=== PATIENT | female | born 1975 | race Caucasian/White ===

== ENCOUNTER 2023-07-11 13:47 | Outpatient (REF) | payer OTHER, SELFPAY ==
[2023-07-16 10:11] LABS: Age Gdln ACOG Testing Note (.); HPV Aptima Negative (Negative); IGP, Aptima HPV, rfx 16/18,45 Note (.)
== END 2023-07-12 13:48 | disposition home or self-care (01) ==
LOC: LAB 13:47
PROVIDERS: PCP Obstetrics & Gynecology; Visit Provider Obstetrics & Gynecology
DX: Z01.419 Encounter for gynecological examination (general) (routine) without abnormal findings (principal)
CPT/HCPCS: 87624; G0145

== ENCOUNTER 2024-07-18 18:55 | Outpatient (REF) | payer OTHER, SELFPAY | END 2024-07-18 18:56 | disposition home or self-care (01) | LOC: LAB 18:55 | PROVIDERS: PCP Obstetrics & Gynecology; Visit Provider Obstetrics & Gynecology | DX: Z01.419 Encounter for gynecological examination (general) (routine) without abnormal findings (principal) | CPT/HCPCS: 87624; 88175 ==

== ENCOUNTER 2025-07-24 20:37 | Outpatient (REF) | payer OTHER, SELFPAY ==
--- OUTSIDE RECORDS SUMMARY | 2025-07-24 15:00 | XMS_ITS | Encounter Summary ---
Author Organization [facility] Address [address] [facility] [place] [address] Care Team Providers Care Protective Services Social Worker Name Role Phone Chelle Walker MD Primary Care Provider [phone] Reason for Visit * ReasonCommentsWell Women Visit Encounter Details DateTypeDepartmentCare Team (Latest Contact Info)Zwsaexstdfi55/19/2025 3:00 PM ESTOffice Visit [facility] [address] [place] [address] Clay Olguin DO [address] [place] [address] Well woman exam with routine gynecological exam; Breast cancer screening by mammogram Social History Tobacco UseTypesPacks/DayYears UsedDateSmoking Tobacco: NeverSmokeless Tobacco: NeverAlcohol UseStandard Drinks/WeekCommentsNot Currently0 (1 standard drink = 0.6 oz pure alcohol)caffeine 1-2 cups/day; [id number] Health LiteracyAnswerDate RecordedHow often do you need [...] times a week02/21/2025How often do you attend confucianism or yazidism services?Patient okrapafb85/19/2025Do you belong to any clubs or organizations such as confucianism groups, unions, fraThe Key Revolution or athletic groups, or school groups?No02/21/2025How often do you attend meetings of the clubs or organizations you belong to?Never02/21/2025re you , , , , never , or living with a partner?Living with iftjigi7602/21/2025UDIT-CAnswerDate RecordedQ1: How often do you have a drink containing alcohol?Monthly or less02/21/2025Q2: How many drinks containing alcohol do you have on a typical day when you are drinking?3 or 4 02/21/2025Q3: How often do you have six or more drinks on one occasion?Less than jbszebm8402/21/2025Overall Financial Resource Strain (CARDIA)AnswerDate Recorded How hard is it for you to pay for the very basics like food, housing, medical care, and heating?Not hard at all02/21/2025PHQ-2AnswerDate RecordedPatient Health Questionnaire-2 Qdndl752Fin[facility] [place] of Occupational Health - Occupational Stress QuestionnaireAnswerDate RecordedDo you feel stress - tense, restless, nervous, or anxious, or unable to sleep at night because your mind is troubled all the time - these days?To some ndvgtf3402/21/2025Exercise Vital SignAnswerDate RecordedOn average, how many days [...] were you homeless or living in a half-way (including now)?No02/21/2025CommentsNoSex and Gender InformationValueDate RecordedSex Assigned at TlsxyEuljqd61/18/2023 10:08 AM EDT Legal SwmFflnmz91/15/2023 7:26 PM EDTGender DvgxuqdwXalfob82/18/2023 10:08 AM EDTSexual OrientationChoose not to olorhhyj39/18/2023 10:08 AM EDTdocumented as of this encounter Last Filed Vital Signs Vital SignReadingTime TakenCommentsBlood Arzpyuiy038/7007/24/2025 3:16 PM EST Pulse--Temperature--Respiratory Rate--Oxygen Saturation--Inhaled Oxygen Concentration--Laklpi41.7 kg (186 lb 12.8 oz)07/24/2025 3:16 PM ESTHeight--Body Mass Index30.15005/29/2025 3:03 PM EDTdocumented in this encounter Plan of Treatment DateTypeDepartmentCare Team (Latest Contact Info)Bhiermlczvi52/25/2025 3:40 PM ESTOffice Visit [facility] [place] [facility] [address] [place] [address] Candi Kebede NP [address] [place] [address] 02/19/2026 10:00 AM EDTOffice Visit [facility] [address] [place] [address] Milly Dias PA [address] [place] [address] NameTypePriorityAssociated DiagnosesOrder ScheduleBilateral screening mammogram [...] Chelle Walker MD [address] [place] [address] PCP - GeneralFamily Medicine02/22/25documented as of this encounter
--- OUTSIDE RECORDS SUMMARY | 2025-07-24 20:41 | XMS_ITS | CCD ---
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 Role Phone Ariel Meeks Primary Care Physician [phone] SOFI, DR FERRARA Admitting Unavailable SOFI, DR FERRARA Attending Unavailable SOFI, DR FERRARA Primary Care Unavailable SOFI, DR FERRARA Admitting Unavailable SOFI, DR FERRARA Attending Unavailable SOFI, DR FERRARA Primary Care Unavailable SOFI, DR FERRARA Consulting Un[facility] Roach Consulting Unavailable SOFI, DR FERRARA Admitting Unavailable SOFI, DR FERRARA Attending Unavailable SOFI, DR FRERARA Primary Care Unavailable SOFI, DR FERRARA Consulting Unavailable TOKIO, DR JOHNY Thurman Consulting Unavailable Unavailable Primary Care Provider Ariel Ding MD Primary Care Provider Self, Referral Attending Provider Unavailable Clay Olguin DO Referring Provider Self, Referral Admitting Unavailable Self, Referral Attending Unavailable Ariel Meeks Primary Care Unavailable Clay Olguin Referring Unavailable [phone] -Kiran Cordero Attending Unavaila ble [phone] Elias Servin Attending Unavail able RAJ Quintanilla Attending UnavailAriel Smliey Referring Unavailable Clifton TURNER Attending Unavailable NILLClifton R Referring Unavailable NILLClitfon Attending Unavailable Clifton TURNER R Admitting Unavailable Chelle Walker MD Primary Care Provider JAMEE OROZCO Attending Unavailable MARLEEN JONES Attending Unavailable CLAY OLGUIN Attending Unavailable MARLEEN JONES Attending Unavailable MARLEEN JONES Attending Unavailable MARLEEN JONES Attending Unavailable Allergies Allergy ClassificationReported Allergen(s)Allergy TypeDate of OnsetReaction(s) Facility (1 source)No Known Medication Allergies; Translations: [No Known Medication Allergies]Propensity to adverse reactions (disorder)[facility] Repository Medications Current Medications MedicationDrug Class(es)DatesSig (Normalized)Sig (Original)Albuterol Sulfate 90 mcg/actuation HFA aerosol inhaler (1 source)Start: 18-42-0351Mrdltshzi Sulfate 90 mcg/actuation HFA aerosol inhaler Active 2 INH INHALATION EVERY 4-6 HOURS as needed for shortness of breath or wheezing 6.7 7 September 01, 2024 12:00amduloxetine (12 sources)Serotonin and Norepinephrine Reuptake InhibitorStart: 05-18-2023 duloxetine Oral, Refills(s) 0 Start Date: 05/18/23 Status: OrderedStart: 05-18-2023 End: 60-09-4750EBPUTMBQOV HCL PO Take by mouth. 05/18/2023 02/19/2025 DiscontinuedStart: 03-69-9391IKVVGDAWXE HCL PO Take by mouth. 05/18/2023 Active Start: 27-63-5806fvaq 1 capsule by mouth once dailyDuloxetine 60 mg capsule,delayed release(DR/EC) Active 60 MG PO Daily December 02, 2021 11:00pm hydrOXYzine hydrochloride 25 mg oral tablet (5 sources)AntihistamineStart: 05-29-2025 End: 51-85-1822evloXEEcjhl HCl (Atarax) 25 MG tablet Indications: Anxiety , Sweating profusely Take 1 tablet (25 mg) by mouth as needed at bedtime for anxiety 90 tablet 06/25/2025 09/23/2025 ActiveStart: 12-03-2021 End: 16-16-5953phcv 1 capsule by mouth four times daily as needed for anxiety Hydroxyzine Pamoate 25 mg capsule Discontinued 25 MG PO Four times daily as needed for Anxiety December 02, 2021 11:00pm September 01, 2024 11:11am hyoscyamine sulfate 0.125 mg oral tablet (1 source)Start: 62-73-8569zlml 1 tablet by mouth every four hours as needed for painLevsin 0.125 mg SL Tab 0.125 mg = 1 tab(s), Oral, q4hr, PRN abdominal pain, Refills(s) 0 Start Date: 12/03/24 Status: Ordered Repeat number: 1 methylPREDNISolone 4 mg oral tablet (1 source)CorticosteroidStart: 82-77-9651sqlb 1 tablet by mouth once Methylprednisolone (Medrol (Bassam)) 4 mg tablets,dose pack Active 0 PO per package directions September 01, 2024 12:00am PO PER PKG DIRMultivitamin preparation (1 source)Start: 47-94-5882cvby 1 tablet by mouth once dailymultivitamin 1 tab(s), Oral, Daily, Refill(s) 0, Prophylaxis Start Date: 12/24/24 Status: Ordered Repeat number: 1mupirocin 0.02 mg/mg topical ointment (1 source)RNA Synthetase Inhibitor AntibacterialStart: 05-18-2023 End: 33-28-1325uhcwrnzxb Top 2% Oint 1 ernestina, Topical, TID for 7 day(s), 22 gm, Refill(s) 0, [facility]/pharmacy #[id number], 167, cm, 05/18/23 15:22:00 EDT, Height/Length Dosing, 93.9, kg, 05/18/23 15:22:00 EDT, Weight Dosing Start Date: 05/18/23 Stop Date: 05/25/23 Status: Orderednaproxen 500 mg delayed release oral tablet (1 source)Nonsteroidal Anti-inflammatory DrugStart: 06-25-2024 End: 59-27-7262vvvc 1 tablet by mouth twice daily at mealtimenaproxen 500 mg oral enteric coated tablet 500 mg = 1 tab(s), Oral, BID, with food, X 10 day(s), # 20 tab(s), Refills(s) 0, Pharmacy: [facility]/pharmacy #[id number], 167, cm, 06/25/24 9:39:00 EDT, Height/Length Dosing, 93, kg, 06/25/24 9:39:00 EDT, Weight Dosing Start Date: 06/25/24 Stop Date: 07/05/24 Status:Orderedpantoprazole 40 mg delayed release oral tablet (1 source)Proton Pump InhibitorStart: 64-06-9696nwqe 1 tablet by mouth once dailyProtonix 40 mg Tab-DR 40 mg = 1 tab(s), Oral, Daily, Refills(s) 0, Control of stomach acid Start Date: 12/03/24 Status: Ordered Repeat number: 1Tirzepatide- Weight Management 5 MG/0.5ML solution auto-injector (6 sources)inject 5 mg by subcutaneous injection every weekTirzepatide-Weight Management 5 MG/0.5ML solution auto-injector Inject 5 mg under the skin 1 (one) time per week Active Completed/Discontinued Medications MedicationDrug Class(es)DatesSig (Normalized)Sig (Original)minocycline 100 mg oral capsule (3 sources)Tetracycline-class DrugStart: 08-03-2023 End: 40-71-9867upeg 1 capsule by mouth twice dailyminocycline 100 MG capsule Indications: Postoperative infection, unspecified type, initial encounter Take 1 capsule, by mouth, bid x 7 days 14 capsule 08/03/2023 07/18/2024 Discontinued (Other)Bm-Ob-Yppf-Fa-Ca Carb-Vit K (Women's Multivitamin) 18 mg iron-400 mcg-500 mg Tablet (1 source)Start: 12-03-2021 End: 60-47-6100Ah-Xh-Xanw-We-Ca Carb-Vit K (Women's Multivitamin) 18 mg iron-400 mcg-500 mg Tablet Discontinued 2 TAB PO Daily December 02, 2021 11:00pm September 01, 2024 11:11amphentermine hydrochloride 37.5 mg oral tablet (7 sources)Sympathomimetic Amine AnorecticStart: 06-20-2023 End: 32-57-8948zbll 1 tablet by mouth once dailyAdipex-P 37.5 MG tablet Take 37.5 mg by mouth 1 (one) time each day at the same time. 06/20/2023 02/19/2025 DiscontinuedTirzepatide-Weight Management (Zepbound) 2.5 MG/0.5ML solution auto-injector (5 sources) End: 37-16-7757agofkb 2.5 mg by subcutaneous injection every weekTirzepatide- Weight Management (Zepbound) 2.5 MG/0.5ML solution auto-injector Inject 2.5 mg under the skin 1 (one) time per week compounded 04/29/2025 Discontinuedinject 2.5 mg by subcutaneous injection every weekTirzepatide-Weight Management (Zepbound) 2.5 MG/0.5ML solution auto-injector Inject 2.5 mg under the skin 1 (one) time per week compounded ActivetraMADol hydrochloride 50 mg oral tablet (1 source)Opioid AgonistStart: 12-17-2021 End: 49-26-8910chia 1 tablet by mouth every four hours as needed for pain Tramadol 50 mg Tablet Discontinued 50 MG PO Q4H as needed for Pain scale 1 - 4 20 7 December 16, 2021 11:00pm September 01, 2024 11:11am Problems Active Problems Problem ClassificationProblemDateDocumented DateEpisodic/ChronicAbdominal pain (6 sources)Abdominal pain; Translations: [Unspecified abdominal pain]08-17-2023 EpisodicComment on above:Problem List clean-up per request of Phys. EHR Cmte Anxiety disorders (9 sources)Anxiety; Translations: [Anxiety disorder, unspecified]03-26-2025 ChronicDigestive congenital anomalies (1 source)Congenital anomaly of intestinal tract; Translations: [Other specified congenital malformations of intestine]Onset: 98-14-2465JtywtlaDttishqtdf disorders (1 source)Gastroesophageal reflux qpeetcm04-82-0726JykvqiuFmeuzctflhygo symptoms and ill-defined conditions (2 sources)Increased frequency of urination; Translations: [Frequency of micturition]04-45-9541GskaqiugLdkwo valve disorders (3 sources)Heart murmur; Translations: [Cardiac murmur, unspecified]12-03-2024 EpisodicMood disorders (1 source)Depressive ecqoppxp66-60-0796BspwbbkMrsxw and unspecified benign neoplasm (2 sources)Melanocytic nevus of trunk; Translations: [Melanocytic nevi of trunk] 16-70-6229JsrpospwJfhsh and unspecified benign neoplasm (2 sources)Dermatofibroma of left upper limb; Translations: [Other benign neoplasm of skin of left upper limb,including shoulder]46-67-4602VyprlemfKrcjp and unspecified benign neoplasm (2 sources)Dermatofibroma of right lower limb; Translations: [Other benign neoplasm of skin of right lower limb, including hip]86-58-2072HuhnoedmInyfs connective tissue disease (4 sources)Iliotibial band friction syndrome of right knee; Translations: [Iliotibial band syndrome, right leg]Onset: 15-45-5614JcdxflheMuptp connective tissue disease (2 sources)H/O: osteoarthritis; Translations: [Personal history of other diseases of the musculoskeletal system and connective tissue]57-76-4922Xnvsflto Other disorders of stomach and duodenum (2 sources)Indigestion; Translations: [Functional dyspepsia]61-59-5810Xrgjwmgc Other gastrointestinal disorders (1 source)Altered bowel nxixdmdo42-57-4292KduybrgaAibzn gastrointestinal disorders (4 sources)Diarrhea; Translations: [Diarrhea, unspecified]13-24-8342Orwtnynt Other gastrointestinal disorders (2 sources)Burping; Translations: [Eructation]36-77-6732QicyhvnyCpieb non- epithelial cancer of skin (2 sources)History of squamous cell carcinoma of skin; Translations: [Personal history of other malignant neoplasm of skin]66-89-8556IfhiflbiTuyta nutritional; endocrine; and metabolic disorders (2 sources)Obese class I; Translations: [Body mass index (BMI) 33.0-33.9, adult] Onset: 71-98-9311BxwfahwFdrxk nutritional; endocrine; and metabolic disorders (5 sources)Obesity; Translations: [Obesity, unspecified]Onset: 29-94-5140Gncqtkc Other nutritional; endocrine; and metabolic disorders (12 sources)Body mass index 30+ - obesity; Translations: [Body mass index (BMI) 33.0-33.9, adult]47-25-5999VkhmjqzHqcho screening for suspected conditions (not mental disorders or infectious disease) (11 sources)Patient encounter status; Translations: [Encounter for screening mammogram for malignant neoplasm of breast]Onset: 417069-30-0718Uywweeoz Other skin disorders (1 source)Disorder of skin; Translations: [Disorder of the skin and subcutaneous tissue, unspecified]Onset: 88-26-1809AyffrlmaXqlcc skin disorders (2 sources)Lentiginosis; Translations: [Other melanin hyperpigmentation] 88-37-1949BzejjfvkPuvdl skin disorders (2 sources)Actinic keratosis; Translations: [Actinic keratosis]02-19-2025 EpisodicOther skin disorders (2 sources)Seborrheic keratosis; Translations: [Other seborrheic keratosis] 37-67-7935XffbezduVacga skin disorders (3 sources)Excessive sweating; Translations: [Generalized hyperhidrosis] 81-26-5418GnclabagMxcpieum codes; unclassified (2 sources)History of abdominal hysterectomy; Translations: [Acquired absence of both cervix and uterus]40-49-2634ZxriwvtlEbefdbcpjqw; intervertebral disc disorders; other back problems (2 sources)Sacroiliac disorder; Translations: [Sacrococcygeal disorders, not elsewhere classified]41-57-8799ZricljdlJwnje infection (2 sources)Respiratory syncytial virus infection; Translations: [Other specified viral diseases]59-55-6595Upikqxic Past or Other Problems Problem ClassificationProblemDateDocumented DateEpisodic/ChronicLymphadenitis (5 sources)Localized enlarged lymph nodes; Translations: [LOCALIZED ENLARGED LYMPH NODES]Onset: 85-22-4205CojkyeikFvrsfyx and fatigue (4 sources)Other fatigue; Translations: [OTHER FATIGUE]Onset: 89-97-3219Ljwrjdir Viral infection (1 source)Disease caused by 2019-nCoV; Translations: [COVID-19] Results Test NameValueInterpretationReference RangeFacilityUrinalysis macro (dipstick) panel (U)on 11-78-7953Hvfqomrsu, UANegativeNegative - 4(70) +++ mg/dLNOMS HealthcareBlood, UANegativeNegative - 50 Rubén/mcLNOMS HealthcareClarity, UAClear NOMS HealthcareColor, UAYellowNOMS HealthcareGlucose, UANegativeNegative - 2000(110) ++++ mg/dLNOMS HealthcareKetones, UANegativeNegative - 160(16) ++++ mg/dLNOMS HealthcareLeukocytes, UANegativeNegative - 500+++ Yolanda/mcLNOMS HealthcareNitrite, UANegativeNegative - PositiveNOMS HealthcarepH, UA65 - 9NOMS HealthcareProtein, UANegativeNegative - 2000(20) ++++ mg/dLNOMS HealthcareSpec Grav, UA1.011 - 1.03NOMS HealthcareUrobilinogen, UA0.20.2 - 12 mg/dLNOMS HealthcareNOMS HealthcareNo Panel Informationon 86-50-9976ESDL HealthcareMain OR Intraoperative Recordon 01-20-4223Wdiy OR Intraoperative RecordMain OR Intraoperative Record IntraOp Document Type FT Summary Primary Physician: Clifton TURNER MD Finalized Date/Time: 01/15/25 13:29:19 Pt. Name: LYLY TOLBERT /Sex: 1975 Female Med Rec #: [id number] Physician: Clifton TURNER MD Financial #: [id number] Pt. Type: O Room/Bed: / Admit/Disch: 01/14/25 07:59:25 - 01/14/25 23:59:59 Institution: Case Times FT Entry 1 Patient Times In Room 01/14/25 08:51:00 Out Room 01/14/25 09:10:00 Procedure Times Start 01/14/25 08:54:00 Stop 01/14/25 09:08:00 Anesthesia Times Start 01/14/25 08:51:00 Stop 01/14/25 09:10:00 Time at [facility] 01/14/25 09:00:00 Last Modified By: Yasemin REECE, Bree Jones 01/14/25 09:10:42 Case Attendance FT Entry 1 Entry 2 Entry 3 Case Attendee XENA ALICEA, Elvira Willoughby RISK PREVENTION ENGINEER, Joann Conn Role Performed Surgeon - Primary Scrub - Primary RISK PREVENTION ENGINEER Time In 01/14/25 08:51:00 01/14/25 08:51:00 01/14/25 08:51:00 Time Out 01/14/25 09:10:00 01/14/25 09:10:00 01/14/25 09:10:00 Procedure COLONOSCOPY(.) COLONOSCOPY(.) COLONOSCOPY(.) Comments Dr. Marte supervising case Last Modified By: Yasemin RN, Bree Hazel RN, Bree Hazel RN, Bree F 01/14/25 09:10:42 F 01/14/25 09:10:42 F 01/14/25 09:10:42 Entry 4 Case Attendee Bree Hazel RN Role Performed Hydroelectric Plant Technician - Primary Time In 01/14/25 08:51:00 Time Out 01/14/25 09:10:00 Procedure COLONOSCOPY(.) Comments Last Modified By: Bere Hazel RN 01/14/25 09:10:42 Perioperative Protocols FT Pre-Care Text: Implements protective measures prior to operative or invasive procedure, confirms identity before the operative or invasive procedure, verifies operative procedure, surgical site, and laterality Entry 1 Procedure(s) COLONOSCOPY(.) Patient Identity Birthday, ID Band Verified (select at Check, Patient least 2): Participation Consents / H and P Anesthesia Consent, Operative Site N/A Verified H&P, Surgery/Procedure Marking Verified Consent Surgical Site No Laterality Verified n/a Verified Procedure Verified Yes Correct Patient Yes Position Verified Availability Equipment, Medication Prep Dry n/a Verified (If Applicable) PreOp Antibiotic No Time Out Clifton TURNER MD, Given Participants Elvira Stearns Funni CRNA, Brandy J., Bree Hazel RN Time Out Complete 01/14/25 08:52:00 Outcomes Met? Yes Last Modified By: Bree Hazel RN 01/14/25 08:53:33 Post-Care Text: The patient is free from signs and symptoms of injury caused by extraneous objects Allergy Information FT Pre-Care Text: Verifies allergies Entry 1 Allergies Reviewed? Yes Allergies Reviewed Self/Patient With Outcomes Met? Yes Last Modified By: Bree Hazel RN 01/14/25 08:53:38 Post-Care Text: The patient received appropriate medication(s) safely administered during the perioperative period Surgical Procedures FT Entry 1 Procedure Description Procedure COLONOSCOPY Modifiers . Surgeon Description Colonoscopy Primary Procedure Yes Primary Surgeon Clifton TURNER MD Start 01/14/25 08:54:00 Stop 01/14/25 09:08:00 Anesthesia Type General Surgical Service General Wound Class 2 - Clean-Contaminated Last Modified By: Bree Hazel RN 01/14/25 09:09:23 General Case Data FT Pre-Care Text: Classifies surgical wound, implements aseptic technique, initiates traffic control Entry 1 Case Information OR ENDO 2 FT Case Level Level 2 Wound Class 2 - Clean-Contaminated Specialty General ASA Class 3 Preop Diagnosis Diarrhea Postop Same As Preop No Postop Diagnosis Normal colonoscopy Outcomes Met? Yes Last Modified By: Bree Hazel RN 01/14/25 09:09:21 Post-Care Text: The patient is free from signs and symptoms of infection Skin Assessment (Pre Procedure) FT Pre-Care Text: Implements protective measures to prevent skin/ tissue injury due to thermal or mechanical sources Evaluates for signs and symptoms of physical injury to skin and tissue Entry 1 Skin Integrity Intact, [place], Warm, & Skin Abnormality No Dry Outcomes Met? Yes Last Modified By: Bree Hazel RN 01/14/25 08:54:05 Post-Care Text: The patient is free from signs and symptoms of injury caused by extraneous objects Patient Positioning FT Pre-Care Text: Identifies physical alterations that require additional precautions for procedure-specific positioning, verifies presence of prosthetics or corrective devices, positions the patient, evaluates the patient for signs and symptoms of injury as a result of positioning Entry 1 Procedure COLONOSCOPY(.) Body Position Lateral, right side up Feet Uncrossed? Yes Left Arm Position Resting at Side Right Arm Position Resting at Side Left Leg Position Extended Right Leg Position Extended Positioning Device Safety Strap, Pillow Under Head Large Press Points Checked Yes By Bree Hazel RN (more content not included)...[facility] 04-77-4209HnvnbdcmtSnyxbcrpq From: Francine Knight LPN To: N - Clinical; Sent: 01/15/2025 08:41:07 EDT Show up: 12/15/2034 07:00:00 EDT Subject: colonoscopy recall Due Date/Time: 01/14/2035 07:00:00 EDT Reminder/Recall Patient due for screening colonoscopy 01/14/2035.[facility] CenterDischarge Instructionson 63-06-3703Wiyjbieoy InstructionsDischarge Instructions LYLY TOLBERT :1975 Visit Date:01/14/2025 Inpatient Discharge Instructions Your Care Team Admitting Physician - Clifton TURNER MD Referring Physician - XENA ALICEA, Clifton Roach Reason for Your Visit DIARRHEA Your Diagnosis Redundant colon This Is Your Medications List hyoscyamine (Levsin 0.125 mg SL Tab) multivitamin pantoprazole (Protonix 40 mg Tab-DR) Procedure History Colonoscopy (01/14/2025), Total hysterectomy via vaginal approach (12/17/2021), Meniscal repair. What to do next Instructions From Your Doctor Event Name Event Result Discharge Activity Resume normal activities in 24 hours, Arrange for a responsible adult supervision for 24 hours Discharge Restrictions No driving for 24 hrs, Do not operate machinery or tools, Do not make important decisions for 24 hours, Do not drink alcoholic beverages for 24 hours Discharge Diet(s) Other: high fiber diet Call Your Doctor For Persistent or heavy bleeding, Temperature above 101.5 degrees, Redness, swelling, or pus at operative site, Severe pain at the operative site, Persistent vomiting Discharge Instructions Discharge Instructions New Follow Up Appointments after Discharge Follow Up with Clifton TURNER When: Only if needed Where: [facility] [employer], [address] [employer] [address] [place] [phone] Spotted (1) Medications What How Much When Instructions Next Dose Unchanged hyoscyamine (Levsin 0.125 mg SL Tab) 1 Tablets By Mouth Every 4 hours as needed for abdominal pain Unchanged multivitamin 1 Tablets By Mouth Every day Unchanged pantoprazole (Protonix 40 mg Tab-DR) 1 Tablets By Mouth Every day Test Results No qualifying data available. Allergies No Known Allergies No Known Medication Allergies Problems Ongoing - Any problem that you are currently receiving treatment for. Abdominal pain, RLQ BMI 34.0-34.9,adult Cardiac murmur Change in bowel habits Depression Gastroesophageal reflux disease Obesity Education Materials Colonoscopy Care After Surgery Please read the instructions outlined below and refer to this sheet in the next few weeks. These discharge instructions provide you with general information on caring for yourself [facility] Your doctor may also give you specific instructions. While your treatment has been planned according to the most current medical practices available, unavoidable complications occasionally occur. If you have any problems or questions after discharge, please call your doctor. ACTIVITY You may resume your regular activity, but move at a slower pace for the next 24 hours. Take frequent rest periods for the next 24 hours. Walking will help get rid of the air and reduce the bloated feeling in your abdomen (belly). No driving for 24 hours (because of the anesthesia (medicine) used during the test). You may shower. Do not sign any important legal documents or operate any machinery for 24 hours (because of the anesthesia used during the test). NUTRITION Drink plenty of fluids. You may resume your normal diet as instructed by your doctor. Begin with a light meal and progress to your normal diet. Heavy or fried foods are harder to digestand may make you feel nauseated (sick to your stomach). Avoid alcoholic beverages for 24 hours or as instructed. MEDICATIONS You may resume your normal medications unless your doctor tells you otherwise. WHAT YOU CAN EXPECT TODAY Some feelings of bloating in the abdomen. Passage of more gas than usual. Spotting of blood in your stool or on the toilet paper. FOLLOW-UP Your doctor will discuss the results of your test with you. SEEK IMMEDIATE MEDICAL ATTENTION IF: There is more than a spotting of blood in your stool. There is abdominal distention (your abdomen is swollen). There is vomiting. You have a temperature over 101.5 F. There is abdominal pain or discomfort that is severe or gets worse throughout the day. Common Emergency Awareness Tips IS IT A STROKE? Act FAST and Check for these signs: FACE Does the face look uneven? ARM Does one arm drift down? SPEECH Does their speech sound strange? TIME Call at any sign of stroke Heart Attack Signs Chest discomfort: Most heart attacks involve discomfort in the center of the chest and lasts more than a few minutes, or goes away and comes back. It can feel like uncomfortable pressure, squeezing, fullness or pain. Discomfort in upper body: Symptoms can include pain or discomfort in one or both arms, back, neck, jaw or stomach. Shortness of breath: With or without discomfort. Other signs: Breaking out in a cold sweat, nausea, or lightheaded. Remember, MINUTES DO MATTER. If you experience any of these heart attack warning signs, call to get immediate medical attention! Patient Survey You may receive a survey in the mail asking you (more content not included)... [facility] CenterComment on above:Result Comment: Electronically Signed By: Michael REECE, Stephenie Macdonald\.tod\Date and Time Signed: 01/14/25 09:16 EDT Discharge InstructionsDischarge Instructions LYLY TOLBERT :1975 Visit Date:01/14/2025 Inpatient Discharge Instructions Your Care Team Admitting Physician - XENA ALICEA, Clifton Roach Referring Physician - Clifton TURNER MD Reason for Your Visit DIARRHEA Your Diagnosis Redundant colon This Is Your Medications List hyoscyamine (Levsin 0.125 mg SL Tab) multivitamin pantoprazole (Protonix 40 mg Tab-DR) Procedure History Colonoscopy (01/14/2025), Total hysterectomy via vaginal approach (12/17/2021), Meniscal repair. What to do next Instructions From Your Doctor Event Name Event Result Discharge Activity Resume normal activities in 24 hours, Arrange for a responsible adult supervision for 24 hours Discharge Restrictions No driving for 24 hrs, Do not operate machinery or tools, Do not make important decisions for 24 hours, Do not drink alcoholic beverages for 24 hours Discharge Diet(s) Other: high fiber diet Call Your Doctor For Persistent or heavy bleeding, Temperature above 101.5 degrees, Redness, swelling, or pus at operative site, Severe pain at the operative site, Persistent vomiting Discharge Instructions Discharge Instructions New Follow Up Appointments after Discharge Follow Up with Clifton TURNER When: Only if needed Where: [address] [place] [address], [facility] [address] [address] [facility] (1) Medications What How Much When Instructions Next Dose Unchanged hyoscyamine (Levsin 0.125 mg SL Tab) 1 Tablets By Mouth Every 4 hours as needed for abdominal pain Unchanged multivitamin 1 Tablets By Mouth Every day Unchanged pantoprazole (Protonix 40 mg Tab-DR) 1 Tablets By Mouth Every day Test Results No qualifying data available. Allergies No Known Allergies No Known Medication Allergies Problems Ongoing - Any problem that you are currently receiving treatment for. Abdominal pain, RLQ BMI 34.0-34.9,adult Cardiac murmur Change in bowel habits Depression Gastroesophageal reflux disease Obesity Education Materials Colonoscopy Care After Surgery Please read the instructions outlined below and refer to this sheet in the next few weeks. These discharge instructions provide you with general information on caring [facility] Your doctor may also give you specific instructions. While your treatment has been planned according to the most current medical practices available, unavoidable complications occasionally occur. If you have any problems or questions after discharge, please call your doctor. ACTIVITY You may resume your regular activity, but move at a slower pace for the next 24 hours. Take frequent rest periods for the next 24 hours. Walking will help get rid of the air and reduce the bloated feeling in your abdomen (belly). No driving for 24 hours (because of the anesthesia (medicine) used during the test). You may shower. Do not sign any important legal documents or operate any machinery for 24 hours (because of the anesthesia used during the test). NUTRITION Drink plenty of fluids. You may resume your normal diet as instructed by your doctor. Begin with a light meal and progress to your normal diet. Heavy or fried foods are harder to digestand may make you feel nauseated (sick to your stomach). Avoid alcoholic beverages for 24 hours or as instructed. MEDICATIONS You may resume your normal medications unless your doctor tells you otherwise. WHAT YOU CAN EXPECT TODAY Some feelings of bloating in the abdomen. Passage of more gas than usual. Spotting of blood in your stool or on the toilet paper. FOLLOW-UP Your doctor will discuss the results of your test with you. SEEK IMMEDIATE MEDICAL ATTENTION IF: There is more than a spotting of blood in your stool. There is abdominal distention (your abdomen is swollen). There is vomiting. You have a temperature over 101.5 F. There is abdominal pain or discomfort that is severe or gets worse throughout the day. Common Emergency Awareness Tips IS IT A STROKE? Act FAST and Check for these signs: FACE Does the face look uneven? ARM Does one arm drift down? SPEECH Does their speech sound strange? TIME Call at any sign of stroke Heart Attack Signs Chest discomfort: Most heart attacks involve discomfort in the center of the chest and lasts more than a few minutes, or goes away and comes back. It can feel like uncomfortable pressure, squeezing, fullness or pain. Discomfort in upper body: Symptoms can include pain or discomfort in one or both arms, back, neck, jaw or stomach. Shortness of breath: With or without discomfort. Other signs: Breaking out in a cold sweat, nausea, or lightheaded. Remember, MINUTES DO MATTER. If you experience any of these heart attack warning signs, call to get immediate medical attention! Patient Survey You may receive a survey in the mail asking you (more content not included)... [facility] CenterComment on above:Result Comment: Electronically Signed By: Michael REECE, Stephenie Macdonald\.tod\Date and Time Signed: 01/14/25 09:16 EDT Inpatient Patient Summaryon [id number] Patient SummaryInpatient Patient Summary [address] [address] [facility] Clinical Discharge Instructions PERSON INFORMATION Name: LYLY TOLBERT PHYSICIANS Admitting Physician: Clifton TURNER MD Attending Physician: Clifton TURNER MD PCP: Ariel Meeks MD Discharge Diagnosis: Redundant colon Comment: PATIENT EDUCATION INFORMATION Instructions: Medication Leaflets: Follow up: With: Address: When: [address] [facility], [address], [place] [phone] Business (1) , only if needed MEDICATION LIST Medications to Continue with No Changes Other Medications hyoscyamine (Levsin 0.125 mg SL Tab) 1 Tablets By Mouth every 4 hours as needed abdominal pain. multivitamin 1 Tablets By Mouth every day. pantoprazole (Protonix 40 mg Tab-DR) 1 Tablets By Mouth every day. Comment:[facility] OR PACU II Recordon [id number] OR PACU II RecordMain OR PACU II Record PACU Phase II Document Type FT Summary Primary Physician: Clifton TURNER MD Finalized Date/Time: 01/14/25 10:37:18 Pt. Name: LYLY TOLBERT Se/Sex: 1975 Female Med Rec #: [id number] Physician: Clifton TURNER MD Financial #: [id number] Pt. Type: O Room/Bed: / Admit/Disch: 01/14/25 07:59:25 - Institution: Case Times PACU II FT Pre-Care Text: Identifies barriers to communication and implements measures to provide psychological support and determines knowledge level Develops individualized plan of care, and ensures continuity of care Maintains patient's dignity and privacy, and maintains patient confidentiality Identifies and reports philosophical, cultural, and spiritual beliefs and values Identifies individual values and wishes concerning care administers prescribed antibiotic therapy and immunizing agents as ordered, Evaluates postoperative tissue perfusion Implements thermoregulation measures, and monitors body temperature Evaluates postoperative respiratory statusEvaluates postoperative cardiac status Evaluates postoperative neurological status Assesses pain control, collaborated in initiating patient-controlled analgesia and implements alternative methods of pain control Verifies allergies, administers prescribed medications and solutions, evaluates response to medications Entry 1 In PACU II 01/14/25 09:12:00 Discharge from PACU 01/14/25 09:40:00 II Outcomes Met? Yes Last Modified By: Stephenie Rodriguez RN 01/14/25 10:37:17 Post-Care Text: The patient demonstrates knowledge of the expected response to the operative or invasive procedure The patient's care is consistent with the individualized perioperative plan of care The patient's rightto privacy is maintained The patient's value system, lifestyle, ethnicity, and culture are considered, respected, and incorporated into the perioperative plan of care The patient participates in decisions affecting his or her perioperative plan of care. The patient is free from signs and symptoms of infection The patient has wound/tissue perfusion consistent with or improved from baseline levels established preoperatively The patient is at or returning to normothermia at the conclusion of the immediate postoperative period The patient's respiratory function is consistent with or improved from baseline levels established preoperativelyThe patient's cardiovascular status is consistent with or improved from baseline levels established preoperatively The patient's neurological status is consistent with or improved from baseline levels established preoperatively The patient demonstrates and/or reports adequate pain control throughout the perioperative period The patient received appropriate medication(s), safely administered during the perioperativeperiod Finalized By: Stephenie Rodriguez RN Document Signatures Signed By: Stepheine Rodriguez RN 01/14/25 10:37[facility] Preoperative Recordon [id number] OR Preoperative RecordMain OR Preoperative Record Holding Area Document Type FT Summary Primary Physician: Clifton TURNER MD Finalized Date/Time: 01/14/25 08:18:36 Pt. Name: LYLY TOLBERT/Sex: 1975 Female Med Rec #: [id number] Physician: Clifton TURNER MD Financial #: [id number] Pt. Type: O Room/Bed: / Admit/Disch: 01/14/25 07:59:25 - Institution: Case Times Holding FT Pre-Care Text: Verifies consent for planned procedure, identifies individual values and wishes concerning care, includes family members in perioperative teaching Secures patient's records' belongings, and valuables, maintains patient's dignity and privacy, and maintains patient confidentiality Entry 1 In Holding 01/14/25 08:13:00 Outcomes Met? Yes Last Modified By: Benigno Steinberg RN 01/14/25 08:13:20 Post-Care Text: The patient participates in decisions affecting his or her perioperative plan of care The patient'sright to privacy is maintained Surgery Checklist FT Entry 1 Patient Birthday, ID Band Procedure History and Physical, Identification: Check, Patient Verification: Surgical Consent, With Participation Patient NPO after Midnight: No Date/Time: 01/14/25 03:00:00 Results Reviewed clear liquid bowel Personal Items clothing, shoes Comments: results Comment: Limitations: none Complaints of Pain: No Pain Comment: denies pain at this time Operative Site n/a Marking: Marked By: n/a Location: n/a Availability Equipment Verified: Does Patient Smoke No Patient states Yes Comment - Adult Annette- Caty postop adult Supervision supervision available Case Cancelled in No Holding Area see comments below for reason Last Modified By: Benigno Steinberg RN 01/14/25 08:18:33 General Comments: pt finished bowel prep at 0300, per patient nothing to eat or drink since MSRN Finalized By: Benigno Steinberg RN Document Signatures Signed By: Benigno Steinberg RN 01/14/25 08:18[facility] CenterOutpatient Surgery Discharge Instructionon [id number] Surgery Discharge InstructionOutpatient Surgery Discharge Instruction [place] [id number] Patient Discharge Instructions PERSON INFORMATION Name: LYLY TOLBERT Date of : 1975 Current Date: 01/14/2025 09:14:42 PHYSICIANS Admitting Physician: Clifton TURNER MD Discharge Diagnosis: Redundant colon LYLY TOLBERT has been given the following list of follow-up instructions, prescriptions, and patient education materials: PATIENT FOLLOW-UP INFORMATION Diet: Other: high fiber diet Discharge Activity: Resume normal activities in 24 hours, Arrange for a responsible adult supervision for 24 hours Discharge Restrictions: No driving for 24 hrs, Do not operate machinery or tools, Do not make important decisions for 24 hours, Do not drink alcoholic beverages for 24 hours Call Your Doctor For: Persistent or heavy bleeding, Temperature above 101.5 degrees, Redness, swelling, or pus at operative site, Severe pain at the operative site, Persistent vomiting IF UNABLE TO CONTACT YOUR PHYSICIAN AND YOU FEEL IT IS AN EMERGENCY, GO TO THE NEAREST EMERGENCY ROOM OR CALL 911 TOMASZ Funez KIMBERLY, have received the attached patient education materials/instructions and haveverbalized understanding: May we do a follow up call? Yes No I was present when discharge instructions were given Patient Signature Date Clinican/Nurse Signature Date Follow up: With: Address: When: [address], [address], [place] [phone] Business (1) , only if needed Pharmacy Information: You may receive a survey from Oliverio Cobian asking you to rate your care experience. Your feedback is important and will help us understand what we do well and how we can improve the quality of care we provide to you, your loved ones and our community. It???s an honor to serve you. Thank you for choosing [facility] HERE ARE THE MEDICATION CHANGES THAT OCCURRED DURING YOUR HOSPITAL STAY Medications to Continue with No Changes Other Medications hyoscyamine (Levsin 0.125 mg SL Tab) 1 Tablets By Mouth every 4 hours as needed abdominal pain. multivitamin 1 Tablets By Mouth every day. pantoprazole (Protonix 40 mg Tab-DR) 1 Tablets By Mouth every day. PATIENT EDUCATION INFORMATION Instructions: Medication Leaflets:[facility] CenterMM screening mammo BI w/CAD on [id number] [facility] Main [place] [address] [place] [address] Mammography Report Signed Patient: Lyly Tolbert MR#: [id number] : 1975 Acct:[id number] Age/Sex: 48 / F ADM Date: 09/11/24 Loc: OR Room: Type: [facility] Attending Dr: Referral Self Copies to: Clay Meeks MD SELF,REFERRAL Ordering Provider: SELF,REFERRAL Date of Service: 09/11/24 MM/MM screening mammo BI w/CAD: SCREENING CLINICAL DATA: Screening for malignancy. SCREENING MAMMOGRAM - FULL FIELD DIGITAL WITH TOMOSYNTHESIS AND CAD COMPARISON:02/12/2023 05/18/2021 and 04/19/2019 Tomosynthesis craniocaudal and mediolateral oblique views of both breasts were obtained using low- dose digital technique. This examination was reviewed with the aid of CAD. The breast tissue is composed of scattered fibroglandular densities. There are no dominant masses, typically malignant calcifications or architectural distortion. There has been no significant interval change. MM/MM screening mammo BI w/CAD IMPRESSION: NO MAMMOGRAPHIC EVIDENCE OF MALIGNANCY. ROUTINE FOLLOW-UP IS RECOMMENDED IN ONE YEAR. RESULT CODE: 1 Negative DENSITY CODE: 2 (approximately 25-50% glandular) FOLLOW UP: 1YR The false-negative rate of mammography is approximately 10-percent. Management of a palpable abnormality must be based on clinical grounds. Patient was entered into a reminder system with a target due date for the next mammogram. Impression dictated by: Emiliano Tamayo M.D.09/11/2024 3:39 PM Dictation Location: DWS01 Transcribed By: LEI 09/11/24 1539 Dictated By: Emiliano Tamayo MD 09/11/24 1535 Signed By: 09/11/24 1539[facility] GroupMammography reportOrdered By: Emiliano Tamayo on [id number] imaging [facility] Main [place] [address] [place] [address] Mammography Report Signed Patient: Lyly Tolbert MR#: [id number] : 1975 Acct:[id number] Age/Sex: 48 / F ADM Date: 5 Loc: OR Room: Type: [facility] Attending Dr: Referral Self Copies to: Clay Meeks MD SELF,REFERRAL ~ Ordering Provider: SELF,REFERRAL Date of Service: 09/11/24 MM/MM screening mammo BI w/CAD: SCREENING CLINICAL DATA: Screening for malignancy. SCREENING MAMMOGRAM - FULL FIELD DIGITAL WITH TOMOSYNTHESIS AND CAD COMPARISON:02/12/2023 05/18/2021 and 04/19/2019 Tomosynthesis craniocaudal and mediolateral oblique views of both breasts were obtained using low-dose digital technique. This examination was reviewed with the aid of CAD. The breast tissue is composed of scattered fibroglandular densities. There are no dominant masses, typically malignant calcifications or architectural distortion. There has been no significant interval change. MM/MM screening mammo BI w/CAD IMPRESSION: NO MAMMOGRAPHIC EVIDENCE OF MALIGNANCY. ROUTINE FOLLOW-UP IS RECOMMENDED IN ONE YEAR. RESULT CODE: 1 Negative DENSITY CODE: 2 (approximately 25-50% glandular) FOLLOW UP: 1YR The false-negative rate of mammography is approximately 10-percent. Management of a palpable abnormality must be based on clinical grounds. Patient was entered into a reminder system with a target due date for the next mammogram. Impression dictated by: Emiliano Tamayo M.D.09/11/2024 3:39 PM Dictation Location: DWS01 Transcribed By: LEI 09/11/24 1539 Dictated By: Emiliano Tamayo MD 09/11/24 1535 Signed By: 09/11/24 1539 [facility] Work Phone: COVID Cepheidon [id number]-CoV-2 (COVID-19) RNA LAKISHA+probe Ql (Unsp spec)COVID CepheidHolzer Medical Center – JacksonLaboratory - Microbiology and Antimicrobial susceptibilityon [id number]-CoV-2 (COVID- 19) RNA LAKISHA+probe Ql (Unsp spec)NegativeHolzer Medical Center – JacksonNo Panel Informationon [id number] Influenza A (PCR)NegativeHolzer Medical Center – JacksonPOC Influenza B (PCR)NegativeHolzer Medical Center – Jackson IGP,APTIMA HPV,AGE GDLNon [id number] GDLN ACOG TESTINGNote.[facility] Comment on above:TESTS RESULT FLAG UNITS REF RANGE LAB Clinician Provided Cytology Information Source.............Vagina No. of containers..01 ThinPrep Vial Age Algo ACOG Anai... 30-65 01 FLAG LEGEND: L-Low Normal,H-High Normal,LL-Alert Low,HH-Alert High <-Panic Low,>-Panic High,A-Abnormal,AA-Critical Abnormal Performed at: 01 =G [facility] [address] Halie Bright MD, HPV APTIMANegativeNegativeNOMS HealthcareComment on above:This nucleic acid amplification test detects fourteen high- risk HPV types (16,18,31,33,35,39,45,51,52,56,58,59,66,68) without differentiation. Performed at: = - [facility] [id number] Energy Scheduler: Halie Bright MD, Phone: [phone] Performed at: - [facility], [place] [id number] Energy Scheduler: Halie Bright MD, Phone: [phone] IGP, APTIMA HPV, RFX 16/18,45Note.NOMS HealthcareComment on above:TESTS RESULT FLAG UNITS REF RANGE LAB DIAGNOSIS: 02 NEGATIVE FOR INTRAEPITHELIAL LESION OR MALIGNANCY. Specimen adequacy: 02 Satisfactory for evaluation. No endocervical component is identified. Performed by: 02 Sabino Goff, It Support Specialist (ASCP) . 02 Note: Note 02 The Pap smear is a screening test designed to aid in the detection of premalignant and malignant conditions of the uterine cervix. It is not a diagnostic procedure and should not be used as the sole means of detecting cervical cancer. Both false-positive and false-negative reports do occur. Test Methodology: Note 02 This liquid based ThinPrep(R) pap test was screened with the use of an image guided system. HPV Genotype Reflex Note 02 Criteria not met, HPV Genotype not performed. FLAG LEGEND: L-Low Normal,H-High Normal,LL-Alert Low,HH-Alert High <-Panic Low,>-Panic High,A-Abnormal,AA-Critical Abnormal Performed at: 02 [facility] [address] [place] [address] Halie Bright MD, [facility] OshkoshAmbulatory Visit Summaryon [id number] Visit SummaryAmbulatory Visit Summary LYLY TOLBERT :1975 Visit Date:06/25/2024 Ambulatory Visit Instructions Your Diagnosis Iliotibial band syndrome, right leg Your Care Team Attending Physician - Aurora Quintanilla CNP Primary Care Physician - Ariel Meeks MD This Is Your Medications List naproxen (naproxen 500 mg oral enteric coated tablet) Contact prescribing physician if questions or concerns duloxetine Discharge Vitals Temperature (Tympanic) 37 ?C Heart Rate (Peripheral) 80 Blood Pressure 120/82 Height 167 cm Height 66 in Weight 93 kg Weight 204.6 lb BMI 33.35 Medications What How Much When Why Instructions New naproxen (naproxen 500 mg oral enteric coated tablet) 1 Tablets By Mouth 2 times a day Iliotibial band syndrome, right leg Duration: 10 Days with food Pickup at [facility]/pharmacy #[id number] Unchanged duloxetine By Mouth Contact prescribing physician if questions or concerns Pharmacy Information [facility]/pharmacy #[id number]: [address] [place], [place] [phone] Allergies No Known Medication Allergies Problems Ongoing - Any problem that you are currently receiving treatment for. Iliotibial band syndrome, right leg Patient Survey You may receive a survey via text or e-mail asking about your office visit. Please share your experience with us by completing your survey. We appreciate your feedback and thank you for choosing us for your care. Education Materials Iliotibial Band Syndrome Rehab Ask your health care provider which exercises are safe for you. Do exercises exactly as told by your health care provider and adjust them as directed. It is normal to feel mild stretching, pulling, tightness, or discomfort as you do these exercises. Stop right away if you feel sudden pain or your pain gets significantly worse. Do not begin these exercises until told by your health care provider. Stretching and djmjz-ae-eqjmna exercises These exercises warm up your muscles and joints and improve the movement and flexibility of your hip and pelvis. Quadriceps stretch, prone 1. Lie on your abdomen (prone position) on a firm surface, such as a bed or padded floor. 2. Bend your left / right knee and reach back to hold your ankle or pant leg. If you cannot reach yourankle or pant leg, loop a belt around your foot and grab the belt instead. 3. Gently pull your heel toward your buttocks. Your knee should not slide out to the side. You should feel a stretch in the front of your thigh and knee (quadriceps). 4. Hold this position for seconds. Repeat times. Complete this exercise times a day. Iliotibial band stretch An iliotibial band is a strong band of muscle tissue that runs from the outer side of your hip to the outer side of your thigh and knee. 1. Lie on your side with your left / right leg in the top position. 2. Bend both of your knees and grab your left / right ankle. Stretch out your bottom arm to help you balance. 3. Slowly bring your top knee back so your thigh goes behind your trunk. 4. Slowly lower your top leg toward the floor until you feel a gentle stretch on the outside of your left / right hip and thigh. If you do not feel a stretch and your knee will not fall farther, place the heel of your other foot on top of your knee and pull your knee down toward the floor with your foot. 5. Hold this position for seconds. Repeat times. Complete this exercise times a day. Strengthening exercises These exercises build strength and endurance in your hip and pelvis. Endurance is the ability to use your muscles for a long time, even after they get tired. Straight leg raises, side-lying This exercise strengthens the muscles that rotate the leg at the hip and move it away from your body (hip abductors). 1. Lie on your side with your left / right leg in the top position. Lie so your head, shoulder, hip, and knee line up. You may bend your bottom knee to help you balance. 2. Roll your hips slightly forward so your hips are stacked directly over each other and your left / right knee is facing forward. 3. Tense the muscles in your outer thigh and lift your top leg 4?6 inches (10?15 cm). 4. Hold this position for seconds. 5. Slowly lower your leg to return to the starting position. Let your muscles relax completely before doing another repetition. Repeat times. Complete this exercise times a day. Leg raises, prone This exercise strengthens the muscles that move the hips backward (hip extensors). 1. Lie on your abdomen (prone position) on your bed or a firm surface. You can put a pillow under yourhips if that is more comfortable for your lower back. 2. Bend your left / right knee so your foot is straight up in the air. 3. Squeeze your buttocks muscles and lift (more content not included)...[facility] Medicine Office/Clinic Noteon [id number] Medicine Office/Clinic NoteFabeverly hospital Medicine Office/Clinic Note Chief Complaint rt knee pain HPI Staff 48 year old female presents with rt sided knee pain that radiates into foot since yesterday after playing on the floor with younger kids. Pain waking her up at night hx rt sided meniscus repair ice History of Present Illness Lyly is a 48 year old female presenting today for right knee and right foot pain which started last night after playing with the kids. She felt pulling in her right quad. She was chasing them running around the house. Pain location: along right side of thigh, knee, lower leg. She iced last night but the pain woke her up in the middle of the night. Pain rated 3/10 sitting here. When she starts walking its not bad. She limps. No numbness/tingling. Did have a meniscus repair in the knee years ago. Works as a teacher. Review of Systems PHQ Score Initial Depression Screen Score: 0 SCORE See above. Physical Exam Vitals & Measurements T: 37 ?C(Tympanic) HR: 80(Peripheral) BP: 120/82 SpO2: 99% HT: 66 in HT: 167 cm WT: 93 kg WT: 204.6 lb BMI: 33.35 General: well developed, well groomed, obese, in no acute distress. Lungs: normal respiratory effort. Cardiovascular: no edema to right LE. Left PT pulses palpable. MSK: Right hip with full ROM. Right knee with full ROM, no edema, crepitus noted, or effusion. Point tenderness reported at right upper lateral leg, extending down to right lateral knee, down to right lateral lower leg. No ecchymosis noted. Right ankle with full ROM. Able to bear weight. Slight limp with ambulation. Neurologic: full sensation to right LE/foot. Skin: [place], warm and dry. No rashes, ulcerations, or suspicious lesions noted on visible/exposed skin. Mental status: alert and oriented x 3. Normal mood and affect, normal behavior for age. Assessment/Plan 1. Iliotibial band syndrome, right leg (M76.31: Iliotibial band syndrome, right leg) Based on complaints and PE findings I believe this to be IT band syndrome. Discussed risks and MOinjury. Will trial stretching and Naproxen BID x 10 days. Reviewed stretching and exercises to do. Discussed PT in a few weeks if not improved. Verbalized understanding. Ordered: naproxen, 500 mg = 1 tab(s), Oral, BID, with food, X 10 day(s), # 20 tab(s), Refills(s) 0, Pharmacy: [facility]/pharmacy #[id number], 167, cm, 06/25/24 9:39:00 EDT, Height/Length Dosing, 93, kg, 06/25/24 9:39:00 EDT, Weight Dosing 2. Obesity (E66.9: Obesity, unspecified) The standard range for ages 18 and older is >=18.5 and < 25 kg/m2. Your BMI today was above this range, this falls in the obese category and there are medical benefits to weight loss. We can offer counselling, referral, and/or medical support in addressing this problem. Visit VisibleGains.gov for useful information to help make better choices when eating. Your BMI and weight management will be followed at subsequent visits. Ordered: Body Mass Index (BMI) documented 3008F 3. BMI 33.0-33.9,adult (Z68.33: Body mass index [BMI] 33.0-33.9, adult) See #2. Ordered: Body Mass Index (BMI) documented 3008F Follow-up With When Contact Information Ariel Meeks MD Within 2 to 4 weeks, only if needed [address] [place] [address]- Additional Instructions: Patient Education BMI for Adults BMI for Adults Iliotibial Band Syndrome Rehab Iliotibial Band Syndrome Problem List/Past Medical History Ongoing BMI 33.0-33.9,adult Iliotibial band syndrome, right leg Obesity Historical No qualifying data Medications duloxetine, Oral naproxen 500 mg oral enteric coated tablet, 500 mg= 1 tab(s), Oral, BID Allergies No Known Medication Allergies Social History Alcohol Current, 1-2 times per month, 05/18/2023 Tobacco Never (less than 100 in lifetime) Tobacco Use:. Never Smokeless Tobacco Use:., 05/18/2023 Immunizations Vaccine Date Status Comments SARS-CoV-2 (COVID-19) mRNA-1273 vaccine 07/15/2021 Recorded 2024-06-25: TPV40 SARS-CoV-2 (COVID-19) mRNA-1273 vaccine 10/29/2020 Given Early/Late Reason: Nursing Judgment SARS-CoV-2 (COVID-19) mRNA-1273 vaccine 10/01/2020 GivenNoMagruder HospitalComment on above:Result Comment: Electronically Signed By: Aurora Quintanilla CNP.tod\Date and Time Signed: 06/25/24 09:55 EDTCytology Cervical or vaginal smear or scraping studyOrdered By: Emelina Taylor on 91-42-8450VWON HealthcareReference Laboratory TestingOrdered By: Neena DomainUser on 61-73-2529CWON-CoV-2 (COVID-19) RNA LAKISHA+probe Ql (Resp)DetectedInvalid Interpretation CodeNot DetectedHILLCREST HOSPITAL SOUTH SendOutsSSComment on above:Result Comment: Patients who have a positive COVID-19 test result may now have treatment options. Treatment options are available for patients with mild to moderate symptoms and for hospitalized patients. Visit our website at [email or web address] for resources and information. This nucleic acid amplification test was developed and its performance characteristics determined by [employer]. Nucleic acid amplification tests include RT-PCR and TMA. This test has not been FDA cleared or approved. This test has been authorized by FDA under an Emergency Use Authorization (EUA). This test is only authorized for the duration of time the declaration that circumstances exist justifying the authorization of the emergency use of in vitro diagnostic tests for detection of SARS-CoV-2 virus and/or diagnosis of COVID-19 infection under section 564(b)(1) of the Act, 21 U.S.C. 360bbb-3(b) (1), unless the authorization is terminated or revoked sooner. When diagnostic testing is negative, the possibility of a false negative result should be considered in the context of a patient's recent exposures and the presence of clinical signs and symptoms consistent with COVID-19. An individual without symptoms of COVID-19 and who is not shedding SARS-CoV-2 virus would expect to have a negative (not detected) result in this assay. Performed at: [address] [id number] PhD Radha Eagle HEAD_NECKon [id number] HEAD_NECKEXAM: US ST HEAD_NECK HISTORY: Lymphadenopathy COMPARISON: 05/05/2021 TECHNIQUE: Grayscale and color ultrasound FINDINGS: In the region of the patient's right submandibular mass, a normal size normal morphology lymph node is observed measuring 2.2 x 0.6 x 1.0 cm. This has a hyperechogenic hypervascular hilum with a normal cortex measuring 2.3 mm thick. IMPRESSION: Normal size normal morphology lymph node corresponding to the patient's submandibular mass Electronically authenticated by: JOHNY BOLANOS Date: 2021-07-08 19:23[facility] HEAD_NECKon [id number] ST HEAD_NECKEXAM: US ST HEAD_NECK HISTORY: Fatigue , palpable lump inferior to right mandible COMPARISON: None. TECHNIQUE: Ultrasound evaluation of right neck soft tissues FINDINGS: Inferior to the right mandible at site of palpable lump is a 2.0 x 0.7 x 0.7 cm lymph node with prominent fatty hilum. No increased vascularity on color Doppler. IMPRESSION: 1. Patient's palpable lump corresponds to a prominent, but otherwise benign-appearing lymph node. Follow-up is recommended. Electronically authenticated by: EZIO MORAN Date: 2021-05-05 16:43[facility] Vital Signs Date TimeVital SignValuePerforming EheacspzgZcbkduxj60-17-3267 15:03-0400Body jdyyaw968.6 cmDaenrrique Jones ASSEMBLY LEAD PERSON Work Phone: [facility] FultonAyefuobotm05-86-5728 15:03-0400Body mass index (BMI) [Ratio]30.96 kg/b2Dykhzgjrenrrique Jones ASSEMBLY LEAD PERSON Work Phone: [facility] FultonJlfiediwmw16-81-9533 15:03-0400Body temperature 98.01 [degF]Marleen Jones ASSEMBLY LEAD PERSON Work Phone: [facility] FultonXvnpzhgvpg82-91-6484 15:03-0400Body icvgiu80 kg Marleen Jones ASSEMBLY LEAD PERSON Work Phone: [facility] FultonLqcxtpufio18-61-4304 15:03-0400Diastolic blood cwpksfwy31 mm[Hg]Marleen Jones ASSEMBLY LEAD PERSON Work Phone: [facility] FultonXfpfnnhypq29-41-0247 15:03-0400Heart rate74 /min Marleen Jones ASSEMBLY LEAD PERSON Work Phone: [facility] FultonFmwteqqsvs31-53-5159 15:03-7495ZaT2% (BldA) [Mass fraction]98 %Marleen Jones ASSEMBLY LEAD PERSON Work Phone: [facility] FultonYybxtghrzp38-88-0104 15:03-0400Systolic blood xpesnnbw943 mm[Hg]Marleen Jones ASSEMBLY LEAD PERSON Work Phone: [facility] FultonQsdqldmtkv55-63-7807 15:00-0400Body jcmatw998.6 cmDaenrrique Jones ASSEMBLY LEAD PERSON Work Phone: [facility] FultonNjobiqpnkn90-80-8081 15:00-0400Body mass index (BMI) [Ratio]31.86 kg/w9Xeqfxqnkenrrique Jones ASSEMBLY LEAD PERSON Work Phone: [facility] FultonXrtoytkdbc63-88-5282 15:00-0400Body temperature 98.01 [degF]Marleen Jones ASSEMBLY LEAD PERSON Work Phone: [facility] FultonLymlvybxqz78-49-6880 15:00-0400Body gssbob60.54 kgDaenrrique Jones ASSEMBLY LEAD PERSON Work Phone: [facility] FultonXpcqwgdfkp52-91-8510 15:00-0400Diastolic blood ukcwotdk94 mm[Hg]Marleen Jones ASSEMBLY LEAD PERSON Work Phone: [facility] FultonVlimumckhs19-36-1767 15:00-0400Heart rate68 /min Marleen Jnoes ASSEMBLY LEAD PERSON Work Phone: [facility] FultonIirkkzmofc83-55-0845 15:00-0694PzN6% (BldA) [Mass fraction]98 %Marleen Jones ASSEMBLY LEAD PERSON Work Phone: [facility] FultonQyexftflsn78-32-5075 15:00-0400Systolic blood sawqcmnv686 mm[Hg]Marleen Jones ASSEMBLY LEAD PERSON Work Phone: [facility] FultonGtwtmnvoiw65-81-0844 08:24-0400Body hcimkt609.6 cmDaenrrique Jones ASSEMBLY LEAD PERSON Work Phone: [facility] FultonEncufngvll28-57-3942 08:24-0400Body mass index (BMI) [Ratio]32.15 kg/n2Yopozmhrenrrique Jones ASSEMBLY LEAD PERSON Work Phone: [facility] FultonNenkkziuba97-40-6037 08:24-0400Body temperature 98.2 [degF]Marleen Jones ASSEMBLY LEAD PERSON Work Phone: [facility] FultonGjqzzxbojh43-62-2340 08:24-0400Body njowjz90.36 kgDaenrrique Jones ASSEMBLY LEAD PERSON Work Phone: [facility] FultonSraoeehrmn91-77-2200 08:24-0400Diastolic blood bekuwsyc75 mm[Hg]Marleen Jones ASSEMBLY LEAD PERSON Work Phone: [facility] FultonGtrwnnmkkp88-04-8614 08:24-0400Heart rate65 /min Marleen Jones ASSEMBLY LEAD PERSON Work Phone: [facility] FultonAwdhjxjvlr31-56-3666 08:24-8370ZfY0% (BldA) [Mass fraction]99 %Marleen Jones ASSEMBLY LEAD PERSON Work Phone: [facility] FultonEqfaucvmiq32-07-0240 08:24-0400Systolic blood xollmkse784 mm[Hg]Marleen Jones ASSEMBLY LEAD PERSON Work Phone: [phone] FultonJtlyhxvney09-54-8761 08:58-0400Body kqfzeg734.6 cmDaenrrique Jones ASSEMBLY LEAD PERSON Work Phone: [phone] FultonFbgaycbyve59-78-0830 08:58-0400Body mass index (BMI) [Ratio]33.6 kg/w9Crfqhkudenrrique Jones ASSEMBLY LEAD PERSON Work Phone: [facility] FultonBmlimsdkee59-68-1555 08:58-0400Body temperature 98.29 [degF]Marleen Jones ASSEMBLY LEAD PERSON Work Phone: [phone] FultonKmajxdctka83-96-5892 08:58-0400Body xbuymp82.44 kgDaenrrique Jones ASSEMBLY LEAD PERSON Work Phone: [phone] FultonUgujhhspqx12-63-4437 08:58-0400Diastolic blood wpsrunqz61 mm[Hg]Marleen Jones ASSEMBLY LEAD PERSON Work Phone: [phone]-[facility] FultonNrkipjsifn80-77-8170 08:58-0400Heart rate77 /min Marleen Jones ASSEMBLY LEAD PERSON Work Phone: [phone] FultonReinbxmqxn26-97-5064 08:58-8485VtT9% (BldA) [Mass fraction]98 %Marleen Jones ASSEMBLY LEAD PERSON Work Phone: [facility] FultonTimsvfxonk31-25-3732 08:58-0400Systolic blood jihuxecb280 mm[Hg]Marleen Jones ASSEMBLY LEAD PERSON Work Phone: [phone] FultonRaierqvhte89-87-4840 09:30-0400Heart rate65 /min Clifton NILL [facility]05-12-2025 09:30-0400 Respiratory rate16 /minMichael NILL [facility]05-12-2025 09:30-0400 Diastolic blood xxzcfzeu23 mm[Hg]Clifton NILL [facility]05-12-2025 09:30-1809TxR6% (BldA) [Mass fraction]100 %[place]if[place] NILL [facility]05-12-2025 09:30-0400 Systolic blood ntpjgzku213 mm[Hg][place]if[place] NILL [facility]05-12-2025 09:20-0400Heart rate78 /minMichael NILL [facility]05-12-2025 09:20-0400 Respiratory rate15 /minMichael NILL [facility]05-12-2025 09:20-2233MqP9% (BldA) [Mass fraction]100 %[place]if[place] NILL [facility]05-12-2025 09:20-0400 Diastolic blood suqovcnq95 mm[Hg][place]if[place] NILL [facility]05-12-2025 09:20-0400 Systolic blood swojpvxt258 mm[Hg][place]if[place] NILL [facility]05-12-2025 09:11-0400 Diastolic blood bwqwbifn48 mm[Hg][place]if[place] NILL [facility]05-12-2025 09:11-0400 Systolic blood ekdukwqg419 mm[Hg][place]if[place] NILL [facility]05-12-2025 09:11-0400Body nqhukudlkoq59.88 [degF][place]if[place] NILL [facility]05-12-2025 09:11-0400Heart rate73 /minMichael NILL [facility]05-12-2025 09:11-0400 Respiratory rate15 /minMichael NILL [facility]05-12-2025 09:11-3372LdD3% (BldA) [Mass fraction]95 %[place]if[place] NILL [facility]05-12-2025 09:05-0400 Respiratory rate20 /minMichael NILL [facility]05-12-2025 09:00-0400 Respiratory rate22 /minMichael NILL [facility]05-12-2025 08:55-0400 Respiratory rate14 /minMichael NILL [facility]05-12-2025 08:28-0400Blood Pressure LocationMichael NILL [facility]05-12-2025 08:28-0400Body qbxcnfjrieq97.06 [degF][place]if[place] BAZANL [facility]12-28-2024 11:06-0500Body bnshse318.64 cmAriel Meeks MD Work Phone: [facility]12-28-2024 11:06-0500 Body mass index (BMI) [Ratio]33.2 kg/j8FuejijfAriel Meeks MD Work Phone: [facility]12-28-2024 11:06-0500 Body prrxqlsizxv06.4 [degF]Ariel Meeks MD Work Phone: [facility]12-28-2024 11:06-0500 Body yflgwg20.44 kgAriel Meeks MD Work Phone: [facility]12-28-2024 11:06-0500 Diastolic blood wfdyhifa07 mm[Hg]Ariel Meeks MD Work Phone: [facility]12-28-2024 11:06-0500 Heart rate80 /Jacob Meeks MD Work Phone: [facility]12-28-2024 11:06-0500 SaO2% (BldA) [Mass fraction]97 %Ariel Meeks MD Work Phone: [facility]12-28-2024 11:06-0500 Systolic blood poxnymmi197 mm[Hg]Ariel Meeks MD Work Phone: [facility]11-13-2024 15:32-0500 Body mass index (BMI) [Ratio]33.73 kg/c5Tzdui Clau DO Work Phone: [facility] FultonHhqabsuibb51-94-7401 15:32-0500Body aqkecx02.8 kg Clay Clau DO Work Phone: [phone] FultonDszdsxfflg05-36-0863 15:32-0500Diastolic blood fczkxeam13 mm[Hg]Clay Clau DO Work Phone: [facility] FultonHtkknrjycu87-17-4246 15:32-0500Systolic blood xrifnlif822 mm[Hg]Clay Clau DO Work Phone: [phone]-[facility] FultonPntvyelqnj69-63-2161 09:37-0400Blood Pressure LocationAurora Quintanilla [phone]-HsuxjMer[facility] Rtzm43-54-6321 09:37-0400Body vwskmdovcqx67.6 [degF]Aurora Quintanilla [phone]-QnyroMercy Memorial Hospital [facility] Jgqo28-20-5386 09:37-0400Diastolic blood danufwof40 mm[Hg]Aurora Quintanilla [phone]-NesksMercy Memorial Hospital [facility] Wopf77-57-7298 09:37-0400Heart rate80 /minAurora Quintanilla [phone]-ShidsMercy Memorial Hospital [facility] Pqts45-05-1833 09:37-1764OzZ0% (BldA) [Mass fraction]99 %Aurora Quintanilla [phone]-MxtziMercy Memorial Hospital [facility] Hqdk14-47-2653 09:37-0400Systolic blood zikezwlw927 mm[Hg]Aurora Quintanilla [phone]-NvyhxMercy [facility] Yull37-43-3608 15:18-0400Blood Pressure LocationPatrick Elder [phone]-AjfouMercy Memorial Hospital [facility] Frsn70-10-5908 15:18-0400Diastolic blood beruftrc12 mm[Hg]Patrick Elder [phone]-IxzuhMercy Memorial Hospital [facility] Sozq29-38-6100 15:18-0400Heart rate69 /minPatrick Elder [phone]-WtjgsMercy Memorial Hospital [facility] Gqfo42-51-6069 15:18-7027YdI7% (BldA) [Mass fraction]98 %Patrick Elder [phone]-HqdcwMercy Memorial Hospital [facility] Eiry26-04-7585 15:18-0400Systolic blood mm[Hg]Patrick Jerrod [phone]-ZelkiMercy Memorial Hospital [facility] Care Encounters Encounter DateEncounter TypeCare ProviderFacilityStart: 06-22-2025 End: 77-61-3201BtmnlaDfkblmnf J Hart NP Work Phone: [facility] CambridgeComment on above:Anxiety; Sweating profuselyStart: 05-29-2025 End: 62-04-4485Rqntwx outpatient visit 15 minutesDaenrrique Jones NP Work Phone: [facility]est [facility] Medical CenterComment on above:Sweating profusely (Primary Dx); Anxiety; BMI 30.0-30.9,adult; Panic attackStart: 05-29-2025 End: 94-69-5262zsdmgovuvqMKCEEYHS J HARTNot AvailableStart: 05-29-2025 End: 76-58-3894Nmryms Jose Jones NP Work Phone: noCarney Hospitaltart: 05-29-2025 End: 34-63-8842Oujtkq Jose Jones NP Work Phone: [facility] MedicineStart: 04-29-2025 End: 70-64-3662Cbxjka outpatient visit 15 minutesDaenrrique Jones ASSEMBLY LEAD PERSON Work Phone: [facility]esh Silveira MedicineComment on above:SI (sacroiliac) joint dysfunction (Primary Dx); BMI 31.0-31.9,adult; Anxiety; Burping; Diarrhea, unspecified typeStart: 04-29-2025 End: 55-43-6114bymgyxsgadKAEUSFDZ J HARTNot AvailableStart: 04-29-2025 End: 80-22-6319Owfmtt Jose Jones ASSEMBLY LEAD PERSON Work Phone: [facility] Silveira MedicineStart: 04-29-2025 End: 15-22-8197Dfbbis Jose Jones ASSEMBLY LEAD PERSON Work Phone: [facility] Silveira MedicineStart: 03-26-2025 End: 44-25-0916Vfqkbj Jose Jones ASSEMBLY LEAD PERSON Work Phone: [facility] NE FMStart: 03-26-2025 End: 46-77-5679Fxruxo Jose Jones ASSEMBLY LEAD PERSON Work Phone: [facility] NE FMStart: 03-26-2025 End: 03-21-3927Qpbyll outpatient visit 25 minutesMarleen Jones NP Work Phone: [facility] NE FMComment on above:Urine frequency (Primary Dx); BMI 32.0-32.9,adult; Anxiety; Right lower quadrant abdominal painStart: 03-26-2025 End: 29-82-6321wqcrvnmhndZQIZNSPN J HARTNot AvailableStart: 02-22-2025 End: 23-78-1085Gpwprj Jose Jones ASSEMBLY LEAD PERSON Work Phone: [facility] NE FMStart: 02-22-2025 End: 34-00-6145Plugmv Jose Jones ASSEMBLY LEAD PERSON Work Phone: [facility] NE FMStart: 02-22-2025 End: 24-61-3695Baiblw outpatient new 60 minutesMarleen Jones NP Work Phone: [facility] NE FMComment on above:Screening for heart disease (Primary Dx); H/O abdominal hysterectomy; H/O degenerative disc disease; Encounter for medical examination to establish care; History of squamous cell carcinoma excision; Indigestion; Murmur; Diarrhea, unspecified type; Right lower quadrant abdominal pain; Screening for lipid disorders; Screening for thyroid disorder; Screening for deficiency anemia; BMI 33.0-33.9,adultStart: 02-22-2025 End: 19-42-0202Itllkdd encounter statusMarleen Jones NP Work Phone: noms HealthcareStart: 02-22-2025 End: 34-43-7634cjutbjtpdjRFVXQUWI J HARTNot AvailableStart: 02-19-2025 End: 19-28-7550Xeedua [facility] Work Phone: n[facility] DERMStart: 02-19-2025 End: 27-07-6269Wivngn [facility] Work Phone: noms [facility] DERMStart: 02-19-2025 End: 72-88-2382xzenmkbmipAUPBJ NORTHEIMNot AvailableStart: 02-19-2025 End: 22-82-4832Ouhzfp outpatient visit 15 minutesMainegeneral Medical Center HeyBubbleVantage [facility] Work Phone: noms [facility] DERMComment on above:Melanocytic nevus of trunk (Primary Dx); Lentigines; Actinic keratosis; Seborrheic keratosis; Personal history of squamous cell carcinoma of skin; Dermatofibroma of left upper extremity; Dermatofibroma of right lower extremityStart: 01-14-2025 End: 02-52-8420inwnieahezAkscrzv R NILLFacility:FTMCStart: 01-14-2025 End: 28-04-2380Wtazdea encounter procedureMichael R NILL [facility] Start: 12-24-2024 End: 38-94-6084oyjrdlsozjUradwbl HoyFacility: kStart: 11-29-2024 ambulatoryFacility: Bhavanitart: 69-87-0843iadlwwtefbCyavucnl: Thai Start: 09-11-2024 End: 71-81-4590Ksvdyug encounter procedureAriel Meeks MD Work Phone: [facility] Work Phone: Start: 09-11-2024 End: 16-44-6053ilsiikjqqfLfglyhh M Hoy MD Work Phone: [facility] Work Phone: Start: 09-08-2024 End: 31-56-1135wmlzesgygd2384809138 -Kiran GeorgeFacility: rt: 09-08-2024 End: 84-85-0072Zjw-SiteAriel Meeks [phone]-ZbmfmMercy Memorial Hospital [facility] Care Start: 09-01-2024 End: 85-42-6137Hzkflvm encounter procedureAriel Meeks MD Work Phone: [facility] Work Phone: Start: 07-18-2024 End: 51-37-5655rnanwqvlndJULIB FAZIONot AvailableStart: 07-18-2024 End: 70-86-3912Acwjlnt encounter procedureCorey Clau DO Work Phone: [facility] Work Phone: Start: 07-18-2024 End: 58-56-6175Tnxhmeii preventive med est patient 40-64yrsCorey Clau DO Work Phone: [facility] BCP OBComment on above:Well woman exam with routine gynecological exam; Breast cancer screening by mammogramStart: 07-18-2024 End: 86-26-4084Yjswbz flowsheetCorey Clau DO Work Phone: [facility] BCP OBStart: 07-18-2024 End: 70-30-5439Jhhuqb flowsheetCorey Clau DO Work Phone: [facility] BCP OBStart: 07-18-2024 End: 98-45-8459Zsshlfqco Result EncounterCorey Clau DO Work Phone: n[facility] External Department UnsolicitedStart: 06-25-2024 ambulatoryFacility:CC NorwalkStart: 06-25-2024 End: 07-45-7361agqvklikuuVYV Aurora QuintanillaFacility:[facility] NorwalkStart: 06-25-2024 End: 91-39-5998Funegmj encounter procedureAurora Quintanilla [phone]-XpgdcMercy Memorial Hospital [facility] Care Start: 05-18-2023 End: 25-53-8329Lwpoqzd encounter procedurePatrick Elder [phone]-JboxdMercy Memorial Hospital [facility]venient Care Start: 42-96-5600zdqiblixrxJI ARIEL HOYFacility:H1 Start: 09-11-2021 End: 25-97-9879WlulgwsrpRFIESWD D BRUNER [facility] Start: 07-08-2021 End: 18-60-5762wwshqhrzikZW ARIEL HOYFacility:U8Uirkw: 05-05-2021 End: 28-18-7305uoglkpvkyrNL ARIEL HOYFacility:H1 Procedures DateProcedureProcedure DetailPerforming ClinicianStart: 54-47-4863Nceyd dip stick/tablet rgnt non-auto w/o micrscpDanielle Pennie Jones NP Work Phone: start: 20-83-3991HKEOAGNCSLV SKIN LESIONRylee Arun JACOBS Work Phone: Start: 91-50-3542QhhfzlgnufwWsqfg [place] PA Work Phone: Start: 73-34-1127XtqwilsjkvnFcljeyl NILL Start: 13-89-2269Rshaaldlq mammography of bilateral breastMarthaoushandraas Sofi ALICEA Work Phone: Start: 00-09-6018WNV,APTIMA HPV,AGE GDLNCorey Clau DO Work Phone: Start: 71-55-2284Bbuemgzqrpj observation [Identifier] in Cervix by Cyto stainCorey Clau DO Work Phone: Start: 77-76-6326Wexxfhsllrq observation [Identifier] in Cervix by Cyto stainCorey Clau DO Work Phone: Start: 52-32-7240Ikhe cerv/vag auto thin layer prep mnl screenCorey Clau DO Work Phone: Start: 40-66-5930Ewhvc hysterectomy via vaginal approachMichael NILL Start: 12-59-5030NhamtrasxzfUeygw Clau DO Work Phone: H/O: surgeryHistory of squamous cell carcinoma excisionDaenrrique Jones NP Work Phone: repair of meniscusMichael NILL Plan of Treatment DateCare ActivityDetailAuthorStart: 05-71-7518Mvrgkgluv for malignant neoplasm of colonNOMS HealthcareStart: 95-70-4924Twyzerzau for malignant neoplasm of cervixNOMS HealthcareStart: 99-54-0351Aewfelxju for malignant neoplasm of cervix Pap SmearNOMS HealthcareStart: 02-19-2026 End: 60-87-3785Wzhoqup encounter procedureNOMS SWS DERMStart: 07-24-2025 End: 33-16-4682Klmithq encounter procedureNOMS BCP OBStart: 05-29-2025 End: 68-13-7121Bmgazet encounter procedureNOMS [facility] MedicineComment on above:ArrivedStart: 96-92-6983Wheouheld vaccinationNOIL HealthcareStart: 04-29-2025 End: 90-58-0707Ruxrxth encounter procedureNOMS NE FMComment on above:Arrived Start: 03-26-2025 End: 39-59-5287Txjmyzq encounter procedureNOMS NE FMComment on above:Arrived Start: 02-22-2025 End: 80-54-6328Qmrysea encounter procedureNOMS NE FMComment on above:Arrived Start: 01-30-2025 End: 62-43-2561Twogmjd encounter rmkicqkxb03/28/2025 3:00 PM EDT Office Visit [facility] [address] [place] [address] Debbie Munson, [place] [address] [place] [address] NOMRaul PANTOJA DERMStart: 07-18-2024 End: 64-14-9534VH Breast - bilateral ScreeningBilateral screening mammogram Imaging Routine Breast cancer screening by mammogram Expected: 07/18/2024 (Approximate), Expires: 09/17/2025[facility] Work Phone: comment on above:Expected: 07/18/2024 (Approximate), Expires: 09/17/2025Start: 28-00-9918Hlhzccfov vaccinationInfluenza Vaccine (#1) [facility] HealthcareStart: 10-43-0737Ltgufczhe for malignant neoplasm of breast MammogramNOIL HealthcareStart: 13-20-0782Opvhnwdej for malignant neoplasm of colonNOIL HealthcareCBC W Auto Differential panel - BloodCBC and differential Lab Routine Screening for lipid disorders Screening for heart disease Screening for deficiency anemia Ordered: 02/22/2025[facility] HealthcareComment on above: Ordered: 02/22/2025omprehensive metabolic 2000 panel - Serum or Plasma Comprehensive metabolic panel Lab Routine Screening for lipid disorders Screening for heart diseaseOrdered: 02/22/2025[facility] Healthcare Work Phone: comment on above:Ordered: 02/22/2025THIN PREP TIS PAP AND HR HPV DNATHIN PREP TIS PAP AND HR HPV DNA Pathology and Cytology Routine Well woman exam with routine gynecological exam Ordered: 07/18/2024NOIL HealthcareComment on above:Ordered: 07/18/2024TSH W/REFLEX TO FT4TSH W/REFLEX TO FT4 Lab Routine Screening for thyroid disorder Ordered: 02/22/2025[facility] HealthcareComment on above:Ordered: 02/22/2025 Immunizations Immunization DateImmunizationNotesCare [id number]-StQ-1 (COVID-19) mRNA-1273 vaccineKathenna Quintanilla [phone]-ZneuaMercy Memorial Hospital Convenient CareComment on above:Result Comment: 2024-06-25: [id number]-44, mRNA, LNP-S, PF, 100 mcg or 50 mcg dose; Translations: [Moderna COVID-19 Vaccine]JOHN DRAKE [facility] HospitalComment on above: Early/Late Reason: Early/Late Reason: Nursing [id number]-29, mRNA, LNP-S, PF, 100 mcg or 50 mcg dose; Translations: [Moderna COVID-19 Vaccine]JOHN DRAKE [facility] Payers DatePayer CategoryPayerPolicy [id number] Health Insurance 1..[id number] 2..[id number] 2..1.666875.3.57[id number] 2.0.1.772180.3.57[id number] 2.0.1.133463.3.57[id number] 2.16.840.1.648048.3.57[id number] 2.16.840.1.412795.3.57[id number] 2.16.840.1.565849.3.57[id number] 2.16.840.1.563635.3.57[id number] 2.16.840.1.781714.3.57[id number] 2.16.840.1.813638.3.57[id number] 2.0.1.190998.3.57[id number] 2.16.840.1.366450.3.579.2.725037-70-7686Kmvz-[id number] [id number] 2.16.840.1.883103.3.579.2.531 Social History DateTypeDetailFacilityTobacco smoking statusNever smokerUniversity Hospitals Conneaut Medical Centertart: 02-03-2024 End: 93-53-0235Kqc Assigned At BirthFemalKnox Community Hospitaltart: 05-18-2023 End: 39-44-4839Aitsxrl smoking statusNever smoked tobacco (finding)[facility] Convenient CareStart: 89-41-5505Cdyouso smoking statusNever [facility] CareStart: 97-27-2102Caszzcv use and exposureSmokeless tobacco non-userNOMS HealthcareStart: 07-18-2024 End: 54-76-0708Rpwkqdung beverage intakeEx-drinker (finding)[facility] Start: 02-03-2024 End: 90-77-2287Sgwtmpy of Social functionNOIL HealthcareStart: 06-24-7881Dbhowja Commentcaffeine 1-2 cups/day; sodaNOMS HealthcareStart: 99-88-8377Lsk assigned at birthFemalCedar City Hospital HealthcareStart: 43-42-5540Egsfag identityIdentifies as female gender (finding)[facility] HealthcareStart: 06-79-5318Rkbbmb orientationChoose not to discloseNOIL HealthcareStart: 12-17-2009 End: 95-22-0676BybJxdcjz (finding)[facility] Systemexual OrientationPrem[facility] How often do you need to have someone help you when you read instructions, pamphlets, or other written material from your doctor or pharmacy [SILS]NeverNOMS HealthcareWithin the last year, have you been afraid of your partner or ex-partner?NoNOMS HealthcareAre you now , , , , never or living with a partner?Living with partner [facility] HealthcareHow often to you have a drink containing alcohol?Monthly or less [facility] HealthcareHow many standard drinks containing alcohol do you have on a typical day?3 or 4N[facility]S HealthcareHow often do you have 6 or more drinks on 1 occasion?Less than monthlyNOMS HealthcareDo you feel stress - tense, restless, nervous, or anxious, or unable to sleep at night because yourmind is troubled all the time - these days [OSQ]To some extentNOMS Healthcare(I/We) worried whether (my/our) food would run out before (I/we) got money to buy more.Never trueNOIL Healthcare Functional Status EiabCqtnulccykFyflzwGvhcrvil84-89-6597Qfgwytw Health Questionnaire 2 item (PHQ- 2) [Reported][facility] FultonLozrigxdit89-90-4298Ctvqbvrxck StatusN/[facility]10-21-2024Functional StatusN/[facility] 73-21-1728Wjiwqsxgif StatusN/[facility] Clinical Notes 05-18-2023 to 05-29-2025 Note Date & BfjgYkgjEsfeicit26-35-9087 History of Present illness Narrative* Marleen Jones, ASSEMBLY LEAD PERSON - 05/29/2025 3:00 PM EDT Images from the original note were not included. Vijaya Tolbert is a 49 y.o. female presents with chief complaint of Med Refill, Immunizations (Declines at this time. ), and Breast Cancer Screening (Scheduled at [facility]25) HPI: History of Present Illness The patient is a 49-year-old female who presents for a weight recheck. She reports a positive response to her current medication, with no side effects such as nausea. Shehas been rotating the injection sites on her abdomen and has not experienced any issues. She attempted to inject it into her arm once but did not like it. She is currently on a 5 mg dose of her medication and is considering an increase to 7.5 mg. Over the past 3 weeks, she has experienced episodes of panic, often waking up in the middle of the night with a sense of unease. These episodes occur approximately once a week and are accompanied by sweating and heavy breathing. She is unsure of the cause of these episodes and is interested in exploring treatment options. 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 Occupation: Eighth-grade social sciences research scientist MEDICATIONS: Current Outpatient Medications Medication Instructions hydrOXYzine HCl (ATARAX) 25 mg, Oral, Nightly PRN Tirzepatide-Weight Management 5 mg, Weekly ALLERGIES: No Known Allergies Review of Systems Medical, Surgical, Family, and Social History reviewed. General: Denies fever, chills, fatigue, CUTLER or weight loss/gain CV: Denies CP, palpitations or swelling in legs Resp: denies cough, SOB or wheezing GI: Denies abd pain/n/v/c/d Skin: Denies rash Neuro: Denies LH or dizziness OBJECTIVE: Visit Vitals BP 102/70 (BP Location: Left arm, Patient Position: Sitting, BP Cuff Size: Large adult) Pulse 74 Temp 98 F (Temporal) Ht 5' 6 Wt 191 lb 12.8 oz SpO2 98% BMI 30.96 kg/m OB Status Hysterectomy Smoking Status Never BSA 2.01 m BP Readings from Last 3 Encounters: 05/29/25 102/70 04/29/25 112/70 03/26/25 120/68 Wt Readings from Last 3 Encounters: 05/29/25 191 lb 12.8 oz 04/29/25 197 lb 6.4 oz 03/26/25 199 lb 3.2 oz Physical Exam Physical Exam General: alert & oriented, NAD Head: NC/AT Oral Cavity: MMM Skin: warm, dry Musculoskeletal: normal gait Extremities: no clubbing, cyanosis or edema Neurological: nonfocal Psych: mood/affect full range Respiratory: Clear to auscultation, no wheezing, rales or rhonchi Cardiovascular: Regular rate and rhythm, no murmurs, rubs, or gallops Gastrointestinal: Soft, no tenderness, no distention, no masses Results ASSESSMENT AND PLAN: Assessment & Plan 1. Weight management: - She has achieved a weight loss of almost 10 pounds since the initiation of her weight loss program on 03/26/2025. Her BMI has also decreased. - The dosage of her current medication will be increased from 5 mg to 7.5 mg, with one refill provided. She has been informed that she may experience an increase in nausea during the first two weeks due to the dosage increase. - If she wishes to further increase the dosage to 10 mg, she should inform via the portal along with her current weight. 2. Anxiety: - She has been experiencing anxiety and panic attacks, particularly at night. - A prescription for Atarax 30 tablets has been provided, to be taken as needed for anxiety at night. She has been advised against concurrent use of Benadryl while on this medication. - The prescription will be sent to pharmacy. If the Atarax does not alleviate her symptoms, consideration will be given to transitioning her to a maintenance medication instead of an as-needed regimen. Follow-up: A follow-up visit is scheduled in 2 months. Assessment/Plan Diagnoses and all orders for this visit: Sweating profusely - hydrOXYzine HCl (Atarax) 25 MG tablet; Take 1 tablet (25 mg) by mouth as needed at bedtime for anxiety Anxiety - hydrOXYzine HCl (Atarax) 25 MG tablet; Take 1 tablet (25 mg) by mouth as needed at bedtime for anxiety BMI 30.0-30.9,adult Panic attack Health Maintenance Due Topic Date Due Mammogram 05/18/2022 Influenza Vaccine (1) 05/06/2025 documented in this encounterFulton Medical Center- [id number] History of Present illness Narrative* Marleen Jones NP - 04/29/2025 3:00 PM EDT Images from the original note were not included. Vijaya Tolbert is a 49 y.o. female presents with chief complaint of weight managment HPI: History of Present Illness The patient presents for weight management, anxiety, diarrhea, and SI joint disorder. She reports a lack of significant change in her appetite over the past 2 weeks, although she did notice a difference in the initial 2 weeks. She also mentions feeling slightly hungry. Her anxiety levels have been manageable. Her diarrhea has improved, which she attributes to a decrease in food intake. She experiences frequent burping but does not detect a sulfur-like taste. She sought chiropractic treatment for her sacroiliac (SI) joint, which was described as stuck. Despite attending sessions twice a week for the past month, she has not observed any improvement. She has attempted to adjust her SI joint at home using online resources but without success. Social History: Occupation: Eighth grade social sciences research scientist MEDICATIONS: Current Outpatient Medications Medication Instructions Tirzepatide-Weight Management 5 mg, Weekly ALLERGIES: No Known Allergies Review of Systems Medical, Surgical, Family, and Social History reviewed. General: Denies fever, chills, fatigue, CUTLER or weight loss/gain CV: Denies CP, palpitations or swelling in legs Resp: denies cough, SOB or wheezing GI: Denies abd pain/n/v/c/d Skin: Denies rash Neuro: Denies LH or dizziness OBJECTIVE: Visit Vitals BP 112/70 (BP Location: Left arm, Patient Position: Sitting, BP Cuff Size: Large adult) Pulse 68 Temp 98 F (Temporal) Ht 5' 6 Wt 197 lb 6.4 oz SpO2 98% BMI 31.86 kg/m OB Status Hysterectomy Smoking Status Never BSA 2.04 m BP Readings from Last 3 Encounters: 04/29/25 112/70 03/26/25 120/68 02/22/25 126/74 Wt Readings from Last 3 Encounters: 04/29/25 197 lb 6.4 oz 03/26/25 199 lb 3.2 oz 06/20/25 208 lb 3.2 oz Physical Exam Physical Exam General: alert & oriented, NAD Head: NC/AT Oral Cavity: MMM Skin: warm, dry Heart: RRR, No m/r/g, S1S2 nml Lungs: CTA b/l Abdomen: soft, ND/NT, BS wnl Musculoskeletal: normal gait Extremities: no clubbing, cyanosis or edema Neurological: nonfocal Psych: mood/affect full range Respiratory: Clear to auscultation, no wheezing, rales or rhonchi Cardiovascular: Regular rate and rhythm, no murmurs, rubs, or gallops Results ASSESSMENT AND PLAN: Assessment & Plan 1. Weight management: - The patient reports that the current dosage of 2.5 mg is insufficient for her weight loss goals. - The patient was counseled about increasing the dosage to 5 mg and informed that she may experience mild sickness during the first 2 weeks of the increased dosage. - The dosage will be increased to 5 mg. 2. Anxiety: - The patient's anxiety is currently stable. 3. Diarrhea: - The patient's diarrhea has improved. 4. Sacroiliac (SI) joint disorder: - The patient was advised against frequent visits to the chiropractor and a video demonstrating howto align her sacrum at home was sent to her friend Mercedes. Assessment/Plan Diagnoses and all orders for this visit: SI (sacroiliac) joint dysfunction BMI 31.0-31.9,adult Anxiety Burping Diarrhea, unspecified type Health Maintenance Due Topic Date Due Mammogram 05/18/2022 Influenza Vaccine (1) 05/06/2025 documented in this encounterFulton Medical Center- [id number] History of Present illness Narrative* Marleen Jones NP - 03/26/2025 8:20 AM EDT Images from the original note were not included. Vijaya Tolbert is a 49 y.o. female presents with chief complaint of follow up Breast Cancer Screening (Scheduled) HPI: History of Present Illness The patient presents for weight loss, anxiety, gastrointestinal issues, and urinary frequency. She has been experiencing anxiety, which she attributes to the stress of moving houses. Her anxietylevels have improved since the move. She has lost 9 pounds in the past month. She has reduced her soda intake to 2 cans per day, sometimes even less. Initially, this reduction caused severe headaches, but she has since adjusted. She is considering trying a compound medication for weight loss. Her goal weight is 180 pounds. Her gastrointestinal issues have also improved, with regular bowel movements and no feelings of illness. She consulted a holistic practitioner who diagnosed her with leaky gut syndrome and provided treatment. However, she continues to experience pain in her right side, which has been present for approximately 4 months. The practitioner suggested that the pain might be muscular in nature. She doesnot take probiotics. She reports frequent urination and suspects a possible urinary tract infection (UTI). She experiences lower back pain but no discharge or dizziness. Social History: Coffee/Tea/Caffeine-containing Drinks: She consumes soda, typically 2 cans per day. Living Condition: She lives near a [facility]. MEDICATIONS: Current Outpatient Medications Medication Instructions Zepbound 2.5 mg, Subcutaneous, Weekly, compounded ALLERGIES: No Known Allergies Review of Systems Medical, Surgical, Family, and Social History reviewed. General: Denies fever, chills, fatigue, CUTLER or weight loss/gain CV: Denies CP, palpitations or swelling in legs Resp: denies cough, SOB or wheezing GI: Denies abd pain/n/v/c/d Skin: Denies rash Neuro: Denies LH or dizziness OBJECTIVE: Visit Vitals BP 120/68 (BP Location: Left arm, Patient Position: Sitting, BP Cuff Size: Adult) Pulse 65 Temp 98.2 F (Temporal) Ht 5' 6 Wt 199 lb 3.2 oz SpO2 99% BMI 32.15 kg/m OB Status Hysterectomy Smoking Status Never BSA 2.05 m BP Readings from Last 3 Encounters: 03/26/25 120/68 02/22/25 126/74 07/18/24 120/78 Wt Readings from Last 3 Encounters: 03/26/25 199 lb 3.2 oz 02/22/25 208 lb 3.2 oz 07/18/24 209 lb Physical Exam Physical Exam Respiratory: Clear to auscultation, no wheezing, rales or rhonchi Cardiovascular: Regular rate and rhythm, no murmurs, rubs, or gallops General: alert & oriented, NAD Head: NC/AT Oral Cavity: MMM Skin: warm, dry Heart: RRR, No m/r/g, S1S2 nml Lungs: CTA b/l Abdomen: soft, ND/NT, BS wnl Musculoskeletal: normal gait Extremities: no clubbing, cyanosis or edema Neurological: nonfocal Psych: mood/affect full range Results Labs - Urine test: Negative for infection ASSESSMENT AND PLAN: Assessment & Plan 1. Weight management. - Achieved a commendable weight loss of 9 pounds within a month, indicating a positive response to her current regimen. - BMI score has shown improvement. - Prescription for tirzepatide 2.5 mg will be initiated, with a plan to gradually increase the dosage each month. Informed about potential side effects such as nausea, constipation, and diarrhea, andadvised to report any instances of constipation lasting more than 2 to 3 days. - Encouraged to maintain adequate hydration and protein intake. Injection site can be rotated between the abdomen, thighs, and back of the arms. The goal is to reach a weight of 180 pounds. -[facility]. 2. Anxiety. - Anxiety appears to be well-managed at present, likely due to the completion of house-related stressors. 3. Gastrointestinal issues. - Gastrointestinal symptoms have improved, suggesting a possible food sensitivity. - Advised to monitor diet for potential triggers. 4. Urinary frequency. - A urine test will be conducted today to investigate the cause of urinary frequency. - negative urine Assessment/Plan Diagnoses and all orders for this visit: Urine frequency - POCT Urinalysis dipstick BMI 32.0-32.9,adult Anxiety Right lower quadrant abdominal pain Health Maintenance Due Topic Date Due Mammogram 05/18/2022 Influenza Vaccine (1) 05/06/2025 documented in this encounterFulton Medical Center- [id number] History of Present illness Narrative* Marleen Jones NP - 02/22/2025 9:00 AM EDT Images from the original note were not included. Vijaya Tolbert is a 49 y.o. female presents with chief complaint of [facility] Scre[facility] ([facility] HPI: History of Present Illness The patient presents for establishing care, reporting abdominal pain, degenerative disc disease, weight management concerns, and a history of anxiety. She reports no significant medical history, except for a partial hysterectomy performed a few yearsago, during which her ovaries were retained. She has not menstruated since the procedure and has nohistory of ovarian cysts but had fibroids removed during the hysterectomy. She has a long-standing heart murmur and is under the care of a internet marketing assistant. She also experiences fatigue. 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 A colonoscopy performed a few months ago yielded normal results. However, she continues to experience diarrhea, which she describes as soft stools rather thanwatery. She also reports frequent acid reflux and indigestion, often feeling as though food is lodged in her throat after eating. She does not experience excessive belching and has difficulty swallowing pills. 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 She has been experiencing right-sided abdominal pain that radiates to her back for several months. The pain is constant, varying in intensity depending on her position, and is described as a pinchingsensation that subsides but never completely disappears. She also reports sharp pain upon palpationof the area. She has a history of anxiety but is no longer on medication for this condition. She reports high levels of stress during the school year and is currently experiencing stress related to purchasing andbuilding a house. She does not believe she requires medication for anxiety or depression at this time and has developed coping mechanisms. She has a history of degenerative disc disease in her lumbar region, which causes persistent back pain. She recently experienced a severe episode while performing yard work, necessitating cessation of activity. She also reports hip pain and is seeking massage therapy for relief. She has previously tried Adipex for weight loss, which was initially effective, resulting in a 15-pound weight loss, but subsequently ceased to be beneficial. She expresses frustration with her current weight, which she perceives as excessive, and reports associated knee and back pain. She admits to poor dietary habits, including consumption of toast for breakfast and pizza for dinner the previous day, and a preference for vegetables over meat. Her fluid intake primarily consists of Gatorade and Diet Mountain Dew, with minimal water consumption. She has discontinued regular exercise due to knee pain and body aches. GYNECOLOGICAL HISTORY: - Last Menstrual Period: Since hysterectomy PAST SURGICAL HISTORY: - Partial hysterectomy - ACL surgery - Removal of squamous cell carcinoma from the nose FAMILY HISTORY Her uncle has a history of thyroid issues. MEDICATIONS: No current outpatient medications ALLERGIES: No Known Allergies Review of Systems Constitutional: Negative for fever. Gastrointestinal: Positive for abdominal pain and diarrhea. Negative for constipation, nausea and vomiting. Genitourinary: Positive for frequency. Negative for dysuria and hematuria. Musculoskeletal: Positive for arthralgias. Negative for myalgias. Neurological: Negative for headaches. Medical, Surgical, Family, and Social History reviewed. General: Denies fever, chills, fatigue, CUTLER or weight loss/gain CV: Denies CP, palpitations or swelling in legs Resp: denies cough, SOB or wheezing GI: Denies abd pain/n/v/c/d Skin: Denies rash Neuro: Denies LH or dizziness OBJECTIVE: Visit Vitals BP 126/74 (BP Location: Left arm, Patient Position: Sitting, BP Cuff Size: Adult) Pulse 77 Temp 98.3 F (Temporal) Ht 5' 6 Wt 208 lb 3.2 oz SpO2 98% BMI 33.60 kg/m OB Status Hysterectomy Smoking Status Never BSA 2.1 m BP Readings from Last 3 Encounters: 02/22/25 126/74 07/18/24 120/78 07/11/23 110/70 Wt Readings from Last 3 Encounters: 02/22/25 208 lb 3.2 oz 07/18/24 209 lb 07/11/23 208 lb Physical Exam Physical Exam General: alert & oriented, NAD Head: NC/AT Oral Cavity: MMM Skin: warm, dry Heart: murmur Lungs: CTA b/l Abdomen: soft, ND/NT, BS wnl Musculoskeletal: normal gait Extremities: no clubbing, cyanosis or edema Neurological: nonfocal Psych: mood/affect full range Respiratory: Clear to auscultation, no wheezing, rales or rhonchi Cardiovascular: Heart murmur noted Gastrointestinal: Soft, no tenderness, no distention, no masses Results Diagnostic Testing - Colonoscopy: Normal ASSESSMENT AND PLAN: Assessment & Plan 1. Establishing care. - Her weight gain is likely attributable to hormonal changes following her hysterectomy. - The potential side effects of weight loss supplements, including bowel obstruction with GLP-1 injectables, were discussed. - A comprehensive plan was devised to address her weight management concerns. This includes a gradual reduction in her consumption of Diet Mountain Dew, starting with 2 cans per day for a week, followed by 1 can per day for a week, and then transitioning to every other day for a week. Concurrently,she will increase her water intake to at least 8 cups daily. A daily walking regimen of 20 minutes will be initiated. Dietary modifications will include the incorporation of 5 cups of vegetables, 3 fruits, 3 proteins, 1 carb, and 2 tablespoons of healthy fats into her daily meals. She will also consume red meat 2 to 3 times per week. The use of natural sweeteners such as honey and maple syrup is encouraged. - A CBC will be ordered to assess for anemia, and thyroid function tests will be conducted. She will be informed of any necessary changes to her treatment plan based on the results of her lab work. 2. Abdominal pain. - She reports persistent right lower quadrant pain that sometimes wraps around to her back. - Differential diagnoses include possible ulcers, kidney issues, or dehydration. - Further evaluation with lab work is necessary to rule out liver or kidney involvement. - She is advised to increase her water intake to alleviate potential dehydration-related pain. 3. Degenerative disc disease. - She has a history of lumbar degenerative disc disease, which causes chronic back pain. - Increased pain and limited mobility. - She is advised to continue with conservative management, including avoiding heavy lifting and considering physical therapy or massage therapy for symptom relief. 4. Anxiety. - She reports no current symptoms of anxiety and is not taking any medication for it. - She has coping mechanisms in place and does not feel the need for additional treatment at this time. Follow-up The patient will follow up in 4 weeks. Assessment/Plan Diagnoses and all orders for this visit: Encounter for medical examination to establish care H/O abdominal hysterectomy H/O degenerative disc disease History of squamous cell carcinoma excision Indigestion Murmur Clinical Notes: Established patient 45-59 min (L4) , Total time on date of encounter spent by the physician and/or other QHP includes rdgc-tf-bytf and xci-bylo-uu-face time. Specifically this includes prep time for appointment, exam and evaluation, counseling and education of the patient and documenting clinical information in the EMR or health records. , Ordering medications, tests or procedures. , Obtaining/reviewing separate history. Health Maintenance Due Topic Date Due Mammogram 05/18/2022 Influenza Vaccine (Season Ended) 2025 Answers submitted by the patient for this visit: Abdominal Pain Questionnaire (Submitted on 02/21/2025) Chief Complaint: Abdominal pain Chronicity: chronic Onset: more than 1 month ago Onset quality: undetermined Frequency: constantly Progression since onset: waxing and waning Pain location: RLQ Pain - numeric: 5/10 Pain quality: aching, cramping, dull Radiates to: back anorexia: No belching: No flatus: No hematochezia: No melena: No weight loss: No Aggravated by: certain positions, movement Relieved by: certain positions Diagnostic workup: lower endoscopy documented in this encounterF[facility]- [id number] History of Present illness Narrative* REYNALDO Dye - 02/19/2025 1:10 PM EDT Skin Check Location: Patient requests a full body skin examination Dermatologic history: history of Actinic Keratosis, history of Squamous Cell Carcinoma Last visit: 1 year ago Established patient of Debbie Munson PA-C All pertinent medical history, medications, and allergies were reviewed. General Exam: alert, oriented to person, place, and time, normal affect, well appearing Unaccompanied Scalp, Examined , exam limited by hair Right leg Examined Head, Face Examined Left leg Examined Neck Examined Right foot Examined Chest Examined Patient kept bra on Left foot Examined Back Examined Buttocks Not examined Abdomen Examined Digits,nails: Examined Right arm Examined Left arm Examined Lymphatics: Not examined Hands Examined Skin Exam 1. MELANOCYTIC NEVUS OF TRUNK Generalized Scattered benign appearing, regular brown to light brown melanocytic papules and macules with similar morphology Counseled regarding these benign growths. Rarely, a nevus can develop into malignant melanoma, so any changing nevi should be promptly re-evaluated. 2. LENTIGINES Generalized Scattered ortega macules in sun-exposed areas. The patient was informed that lentigines are benign pigmented lesions that occur on sun-exposed andsun-damaged skin. No treatment is necessary. Recommended regular use of broad spectrum sunscreen SPF 30 or higher 3. ACTINIC KERATOSIS (2) Right Forehead (2) Erythematous scaly papules Patient was counseled regarding these sun-induced growths that can develop into squamous cell carcinoma if left untreated. Discussed treatment with cryotherapy. It was emphasized that any treated lesions that fail to resolve should be re- evaluated. Cryotherapy performed today; see procedure note Diagnosis: Actinic keratosis Indication: Precancerous Location: see skin exam Consent: Verbal consent was obtained and risks were discussed, including, but not limited to risks of scarring, darker or general production worker pigmentary changes, recurrence, incomplete removal and infection. Method: Liquid nitrogen was used to treat the lesion(s) with two 5-10 second freeze-thaw cycles. Right eye was shielded using cotton pad during procedure Number of lesions treated: 2 Post-procedure instructions: Instructions were given orally and in writing. The office will be contacted if the lesion fails to resolve despite treatment, or if a side effect develops such as abnormal crusting, scabbing, redness or tenderness Cryotherapy, skin lesion - Right Forehead (2) 4. SEBORRHEIC KERATOSIS Generalized Stuck on verrucous, variably pigmented papules and plaques. Patient was counseled regarding these benign growths. Removal is normally not necessary, but they may be removed if they are symptomatic or for cosmetic reasons. 5. 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 The patient was counseled that scars from excisional sites of nonmelanoma skin cancers should be monitored closely for recurrence. The patient was instructed to contact the office for any new, changing, or symptomatic moles. The patient was also instructed to contact the office for any new lesions that develop within or around the previous surgery scar. 6. DERMATOFIBROMA OF LEFT UPPER EXTREMITY Left Forearm - Anterior Firm brown papule that dimples with lateral pressure. Discussed that these are benign scars on the skin. If lesion is changing/symptomatic, return to office to have lesion re-evaluated 7. DERMATOFIBROMA OF RIGHT LOWER EXTREMITY Right Lower Leg - Anterior Firm brown papule that dimples with lateral pressure. Discussed that these are benign scars on the skin. If lesion is changing/symptomatic, return to office to have lesion re-evaluated Next Visit: 1 year documented in this encounterFulton [facility] Center- [id number] NoteColonoscopy Procedure Report Patient: LYLY TOLBERT Age: 49 years Sex: Female : 1975 Associated Diagnoses: None Author: XENA ALICEA, Clifton Roach Pre-Procedure Procedure Date 01/14/2025 09:15:00 . Procedure Type: Colonoscopy. Procedure provider Clifton Turner. Referred by Ariel Meeks MD. Current history and physical Documented on chart. Colorectal neoplasm risk assessment Average risk. Informed Consent After discussing the rationale, risks and benefits, and alternatives to this procedure, the patient provided signed consent for the procedure. Pre-procedure diagnosis: Diagnostic: change in bowel habits. ASA Classification: Class II. . Monitoring: See anesthesia record. . Procedure The procedure was performed in the hospital. See anesthesia record for sedation given during procedure. Rectal exam was performed and was normal. The patient was positioned starting in the left lateral decubitus position. Endoscope type used was an adult-size. The endoscope was lubricated then introduced through the anus. The scope was advanced to the cecum verified by photographing the appendiceal orifice, verified by photographing the ileocecal valve. No difficulties encountered during the procedure. The bowel preparation quality was good and was adequate (see polyps greater than or equal to 6 millimeters). The patient tolerated the procedure well. Findings redundant, tortuous colon Images Procedure images: anal canal ileocecal valve [id number] appendicel orifice . Post-Procedure Complications: none. Estimated blood loss: none. Specimens: none. Devices/ implants: none left in place. Impression and Plan Diagnosis: Redundant colon (USF62-KB Q43.8, Discharge, Medical). Course: Progressing as expected. Recommendations: Repeat colonoscopy:: In 10 years. Follow-up:: if problems/questions. Diet:: Regular diet, High fiber. Medication resumption:: Continue current medications. Return to activities:: After 24 hours. Education and Follow-up: Counseled: Family.[facility] CenterComment on above:Other Comment: Missing Attachment - attachment storage system not supported [id number] Can be viewed in source systemMissing Attachment - attachment storage system not supported [id number] Can be viewed insource systemMissing Attachment - attachment storage system not supported [id number] Can be viewed in [facility]ce systemMissing Attachment - attachment storage system not supported [id number] Can be viewed in source [phone] Evaluation + Plan noteExtracted from: Title:ANES Post-operative Note---GeneralAuthor:Kumar Marte MD.Date:01/14/25 Plan Transfer/Discharge: Transfer/Discharge Discharge when meets criteria ( To home ). Extracted from:Title:ANES Pre-operative Note uthor:Kumar Marte MD.Date: 01/14/25 Plan [place] [employer] Anesthesiologists (ASA) physical status classification: Class II. Anesthetic Preoperative Plan: Anesthesia General.[facility] [phone] Hospital Discharge instructions Patient Education 01/14/2025 09:16:04 Colonoscopy, Care After Surgery Salam (CUSTOM) Colonoscopy Care After Surgery Please read the instructions outlined below and refer to this sheet in the next few weeks. These discharge instructions provide you with general information on caring for yourself after you leave thespital. Your doctor may also give you specific instructions. While your treatment has been planned according to the most current medical practices available, unavoidable complications occasionally occur. If you have any problems or questions after discharge, please call your doctor. ACTIVITY You may resume your regular activity, but move at a slower pace for the next 24 hours. Take frequent rest periods for the next 24 hours. Walking will help get rid of the air and reduce the bloated feeling in your abdomen (belly). No driving for 24 hours (because of the anesthesia (medicine) used during the test). You may shower. Do not sign any important legal documents or operate any machinery for 24 hours (because of the anesthesia used during the test). NUTRITION Drink plenty of fluids. You may resume your normal diet as instructed by your doctor. Begin with a light meal and progress to your normal diet. Heavy or fried foods are harder to digestand may make you feel nauseated (sick to your stomach). Avoid alcoholic beverages for 24 hours or as instructed. MEDICATIONS You may resume your normal medications unless your doctor tells you otherwise. WHAT YOU CAN EXPECT TODAY Some feelings of bloating in the abdomen. Passage of more gas than usual. Spotting of blood in your stool or on the toilet paper. FOLLOW-UP Your doctor will discuss the results of your test with you. SEEK IMMEDIATE MEDICAL ATTENTION IF: There is more than a spotting of blood in your stool. There is abdominal distention (your abdomen is swollen). There is vomiting. You have a temperature over 101.5 F. There is abdominal pain or discomfort that is severe or gets worse throughout the day. Follow Up Care 12/24/2024 15:58:40 With:Clifton TURNER Address: [address] [place] [address], [facility] [address] [phone] (1) When: only if needed [facility] 05-12-2025 NoteProgress Note-Physician Patient: LYLY TOLBERT Age: 49 years Sex: Female : 1975 Associated Diagnoses: None Author: Kumar Marte MD Postoperative Information Postoperative disposition: Postoperative disposition: To PACU. Optimetrix number: Optimetrix number [id number]. Anesthetic utilized: General, No Regional. Health Status Allergies: Allergic Reactions (Selected) No Known Allergies No Known Medication Allergies Physical Examination Vital Signs 01/14/2025 9:30 EDT Heart Rate Monitored 65 bpm Respiratory Rate Monitored 16 br/min 01/14/2025 9:30 EDT Systolic Blood Pressure 109 mmHg Diastolic Blood Pressure 79 mmHg SpO2 100 % 01/14/2025 9:20 EDT Heart Rate Monitored 78 bpm 01/14/2025 9:20 EDT Respiratory Rate Monitored 15 br/min 01/14/2025 9:20 EDT SpO2 100 % 01/14/2025 9:20 EDT Systolic Blood Pressure 103 mmHg Diastolic Blood Pressure 67 mmHg 01/14/2025 9:11 EDT Systolic Blood Pressure 105 mmHg Diastolic Blood Pressure 72 mmHg 01/14/2025 9:11 EDT Temperature Temporal Artery 36.6 DegC Heart Rate Monitored 73 bpm Respiratory Rate Monitored 15 br/min SpO2 95 % Pain Assessment: Controlled. General: Awake, Appropriate. Respiratory: Adequate air exchange. Cardiovascular: Stable. Neurological Assessment Anesthetic outcome No anesthetic complications noted. Adequate pain relief. Review / Management Condition: Stable. Plan Transfer/Discharge: Transfer/Discharge Discharge when meets criteria ( To home ).[facility] CenterComment on above:Result Comment: Electronically Signed By: Kumar Marte MD\.br\Date and Time Signed: 01/14/25 11:02 EDT 01-14-2025 NoteHistory and Physical Patient: LYLY TOLBERT Age: 49 years Sex: Female : 1975 Associated Diagnoses: None Author: Clifton TURNER MD Subjective no changes to & [facility] HospitalComment on above:Result Comment: Electronically Signed By: Clifton TURNER MD.br\Date and Time Signed: 01/14/25 09:37 [id number] NoteProgress Note-Physician Patient: LYLY TOLBERT Age: 49 years Sex: Female : 1975 Associated Diagnoses: None Author: Kumar Marte MD Preoperative Information Anesthesia Preop Info: Time patient last ate or drank 01/14/2025 00:00:00. Anesthesia history: Patient history: None. Family history+: None. Informed consent: Signed by patient. Re-evaluation prior to induction: Initial evaluation reviewed: No significant change. Review of Systems Eye Ear/Nose/Mouth/Throat Respiratory: No shortness of breath, No cough. Cardiovascular: No chest pain, No palpitations, No syncope. Musculoskeletal Neurologic Health Status Allergies: Allergic Reactions (Selected) No Known Allergies No Known Medication Allergies, Allergies (2) Active Severity Reaction No Known Allergies None Documented No Known Medication Allergies None Documented Current medications: (Selected) Inpatient Medications Ordered Sodium Chloride 0.9% IV Jagruti 1000 mL 1,000 mL: 1,000 mL, IV, 20 mL/hr, Routine, Start date 01/14/25 6:35:00 EDT, 50 hour(s), Total volume (mL): 1,000, 95.5 kg, 2.11, m2 Documented Medications Documented Levsin 0.125 mg SL Tab: 0.125 mg = 1 tab(s), Oral, q4hr, PRN abdominal pain, Refills(s) 0 Protonix 40 mg Tab-DR: 40 mg = 1 tab(s), Oral, Daily, Refills(s) 0, Control of stomach acid multivitamin: 1 tab(s), Oral, Daily, Refill(s) 0, Prophylaxis, Home Medications (3) Active Levsin 0.125 mg SL Tab 0.125 mg = 1 tab(s), PRN, Oral, q4hr multivitamin 1 tab(s), Oral, Daily Protonix 40 mg Tab-DR 40 mg = 1 tab(s), Oral, Daily , Medications (1) Active Scheduled: (0) Continuous: (1) Sodium Chloride 0.9% 1,000 mL 1,000 mL, IV, 20 mL/hr PRN: (0) Problem list: All Problems Abdominal pain, RLQ / SNOMED CT 740982565 / Confirmed BMI 34.0-34.9,adult / SNOMED CT 320095108 / Confirmed Cardiac murmur / SNOMED CT 982121398 / Confirmed Change in bowel habits / SNOMED CT 936744035 / Confirmed Depression / SNOMED CT 96808764 / Confirmed Gastroesophageal reflux disease / SNOMED CT 618231261 / Confirmed Obesity / SNOMED CT 7873870442 / Confirmed Canceled: Iliotibial band syndrome, right leg / SNOMED CT 3258080171, Active Problems (7) Abdominal pain, RLQ BMI 34.0-34.9,adult Cardiac murmur Change in bowel habits Depression Gastroesophageal reflux disease Obesity Histories Past Medical History: No active or resolved past medical history items have been selected or recorded. Family History: Diabetes mellitus type 2 Mother Primary malignant neoplasm of prostate Father Procedure history: Total hysterectomy via vaginal approach ([id number]) on 12/17/2021 at 46 Years. Meniscal repair ([id number]). Social History Social & Psychosocial Habits Alcohol 12/24/2024 Type: Beer Frequency: 1-2 times per month Use: Current Tobacco 12/24/2024 Tobacco Use: Never (less than 100 in l Smokeless tobacco use: Never . Physical Examination No qualifying data available Airway: Mallampati classification: II (soft palate, fauces, uvula visible). Respiratory: Lungs are clear to auscultation, Respirations are non-labored, adequate air exchange. Cardiovascular: Regular rhythm, faint JM RSB. Review / Management Results review: No qualifying data available . Plan [place] Society of Anesthesiologists (ASA) physical status classification: Class II. Anesthetic Preoperative Plan: Anesthesia General.[facility] Comment on above:Result Comment: Electronically Signed By: Estuardo ALICEA, Kumar Nieves\.br\Date and Time Signed: 01/14/25 09:28 [id number] NotePatient Education - Text Colonoscopy Care After Surgery Please read the instructions outlined below and refer to this sheet in the next few weeks. These discharge instructions provide you with general information on caring for yourself after you leave thehospital. Your doctor may also give you specific instructions. While your treatment has been planned according to the most current medical practices available, unavoidable complications occasionally occur. If you have any problems or questions after discharge, please call your doctor. ACTIVITY You may resume your regular activity, but move at a slower pace for the next 24 hours. Take frequent rest periods for the next 24 hours. Walking will help get rid of the air and reduce the bloated feeling in your abdomen (belly). No driving for 24 hours (because of the anesthesia (medicine) used during the test). You may shower. Do not sign any important legal documents or operate any machinery for 24 hours (because of the anesthesia used during the test). NUTRITION Drink plenty of fluids. You may resume your normal diet as instructed by your doctor. Begin with a light meal and progress to your normal diet. Heavy or fried foods are harder to digestand may make you feel nauseated (sick to your stomach). Avoid alcoholic beverages for 24 hours or as instructed. MEDICATIONS You may resume your normal medications unless your doctor tells you otherwise. WHAT YOU CAN EXPECT TODAY Some feelings of bloating in the abdomen. Passage of more gas than usual. Spotting of blood in your stool or on the toilet paper. FOLLOW-UP Your doctor will discuss the results of your test with you. SEEK IMMEDIATE MEDICAL ATTENTION IF: There is more than a spotting of blood in your stool. There is abdominal distention (your abdomen is swollen). There is vomiting. You have a temperature over 101.5 F. There is abdominal pain or discomfort that is severe or gets worse throughout the day.[facility]04-21-2025 NoteGeneral Surgery Office/Clinic Note Chief Complaint consultation for change in bowel habits HPI Staff 49 year old female presents on consultation from Dr. Meeks for change in bowel habits. Reports approximate 6 month history of loose and liquid stools. Verbalized this happens upon waking and again later afternoon. Reports an uneasy/upset feeling prior to defecation which resolves after moving bowels. There has been no stool studies completed. Denies abdominal or rectal pain. Denies rectal bleeding.No nausea, vomiting or unexplained weight loss. Never had colonoscopy in the past. No known family history of colon cancer. History of Present Illness 49 yo female with h/o GERD, depression, referred for change in bowel habits; patient reports 6 month h/o loose stools, bid, first thing in morning and then after work; loose to watery, no blood or mucous; some discomfort, relieved with bm; also intermittent RLQ ache, no change with bms or eating; no N/V or wt loss, no over the counter medications, no diet changes or increased stress; abdominal operations significant for vaginal hysterectomy; no previous colonoscopy; no asa or NSAID use; no tobacco use; no fmhx of GI malignancy or IBD. Review of Systems PHQ Score Initial Depression Screen Score: 0 SCORE ROS - Provider Constitutional: no fever, no sweats, no weight loss. Eyes: no glasses, no blurred vision, no visual loss. ENMT: no dentures, no hoarseness, no swallowing difficulties, no hearing loss, no ear infection(s),no nose bleeds. Cardiovascular: normal blood pressure, no chest pain, regular heartbeat, no heart murmur. Respiratory: no shortness of breath, no cough, no asthma, no wheezing. Gastrointestinal: no nausea, no vomiting, no diarrhea, no constipation, no blood in stool, no change in bowel habits, no abdominal pain, no hepatitis. Genitourinary: no kidney stones, no urine infection, no dysuria. Musculoskeletal: no pain, no weakness. Skin: no changing moles, no rash, no skin lumps. Neurologic: no seizures, no epilepsy, no headache. Psychiatric: no emotional or psychiatric problem. Heme/Lymph: no bleeding problems, no anemia, no blood clots, no transfusions. Allergy/Immunologic: no swollen lymph nodes/glands, no IV drug abuse. Other: Additional ROS info: Except as noted in the above Review of Systems and in the History of Present Illness, all other systems have been reviewed and are negative or noncontributory. Physical Exam Vitals & Measurements HR: 69(Peripheral) RR: 16 BP: 116/80 HT: 167.6 cm HT: 66 in WT: 95.5 kg WT: 210.541 lb BMI: 34 HEENT: normal conjunctiva, sclera clear, no scleral icterus, EOM intact, PERRLA, oral mucosa moist without lesions. Neck: trachea midline, no mass, symmetric, no thyromegaly or nodules, no adenopathy Respiratory: lungs CTA, respirations non labored. Cardiovascular: regular rate and rhythm, no murmur, no pedal edema or varicosities. Gastrointestinal: soft, non distended, no tenderness, no masses, no palpable hernias, diastasis recti no, no hepatosplenomegaly; normal bs Lymphatic: no cervical adenopathy, no supraclavicular adenopathy. Musculoskeletal: normal gait, digits and nails without infection, nodes, cyanosis, clubbing. Skin: no rashes, no lesions, no ulcers, no subcutaneous nodules, induration. Psychiatric/Neuro: oriented to time, place, person, judgement normal, affect appropriate for age, insight intact, no focal deficits. Tests: , review of old records completed , Discussed surgical options, risks, and possible complications with patient. Assessment/Plan 1. Change in bowel habits (R19.4: Change in bowel habit) plan colonoscopy under anesthesia for further evaluation, informed consent obtained. 2. Abdominal pain, RLQ (R10.31: Right lower quadrant pain) see # 1 Follow-up No qualifying data available Problem List/Past Medical History Ongoing Abdominal pain, RLQ BMI 34.0-34.9,adult Cardiac murmur Change in bowel habits Depression Gastroesophageal reflux disease Obesity Historical No qualifying data Procedure/Surgical History Total hysterectomy via vaginal approach (12/17/2021), Meniscal repair. Medications Levsin 0.125 mg SL Tab, 0.125 mg= 1 tab(s), Oral, q4hr, PRN multivitamin, 1 tab(s), Oral, Daily Protonix 40 mg Tab-DR, 40 mg= 1 tab(s), Oral, Daily Allergies No Known Allergies No Known Medication Allergies Social History Alcohol Current. Beer. 1-2 times per month., 12/23/2024 Substance Abuse Never., 12/23/2024 Tobacco Never (less than 100 in lifetime) Tobacco Use:. Never Smokeless Tobacco Use:., 12/24/2024 Family History Diabetes mellitus type 2: Mother. Primary malignant neoplasm of prostate: Father. Immunizations Vaccine Date Status Comments SARS-CoV-2 (COVID-19) mRNA-1273 vaccine 07/15/2021 Recorded 2024-06-25: [id number] SARS-CoV-2 (COVID-19) mRNA-1273 vaccine 10/29/2020 Given Early/Late Reason: Nursing Judgment SARS-CoV-2 (COVID-19) mRNA-1273 vaccine 09/06 (more content not included)... [facility] CenterComment on above:Result Comment: Electronically Signed By: XENA ALICEA, Clifton Cuellar\Date and Time Signed: 12/24/24 15:46 EDT 09-01-2024 Evaluation note* Diagnosis Onset Date Resolution Status Admit Date RSV (respiratory syncytial virus infecti on) acuteDecember 2023 10:03am [facility] Work Phone: [phone]) 159-284311-13-2024 History of Present illness Narrative* Melony Blanco, YOUTH SERVICES SPECIALIST - 07/18/2024 3:00 PM EST Reason for Appointment: Patient ID: Vijaya Tolbert is a 48 y.o. female who presents for Well Women Visit Patient presents today for Annual Exam. MEDICATIONS Current Outpatient Medications Medication Instructions Adipex-P 37.5 mg, Oral, Every 24 hours DULOXETINE HCL PO Oral ALLERGIES No Known Allergies PROBLEMS Active Ambulatory Problems Diagnosis Date Noted No Active Ambulatory Problems Resolved Ambulatory Problems Diagnosis Date Noted No Resolved Ambulatory Problems Past Medical History: Diagnosis Date Cancer of skin, squamous cell HISTORY PAST MEDICAL HISTORY SOCIAL HISTORY Past Medical History: Diagnosis Date Cancer of skin, squamous cell Social History Tobacco Use Smoking status: Never Smokeless tobacco: Never Vaping Use Vaping status: Never Used Substance Use Topics Alcohol use: Not Currently Comment: caffeine 1-2 cups/day; soda Drug use: Never FAMILY HISTORY Family History Problem Relation Name Age of Onset Skin cancer Mother Diabetes Mother Breast cancer Maternal Grandmother Melanoma Neg Hx SURGICAL HISTORY Past Surgical History: Procedure Laterality Date HYSTERECTOMY 12/17/2021 KNEE CARTILAGE SURGERY Right repair of meniscus REVIEW OF SYSTEMS Review of Systems: Review of Systems Constitutional: Negative. HENT: Negative. Eyes: Negative. Respiratory: Negative. Cardiovascular: Negative. Gastrointestinal: Negative. Genitourinary: Negative. Musculoskeletal: Negative. Skin: Negative. Neurological: Negative. All other systems reviewed and are negative. Hematological: Negative. Endocrine: Negative. Allergic/Immunologic: Negative. OBJECTIVE Objective: Physical Exam Constitutional: Appearance: Normal appearance. She is well-developed. Genitourinary: Vulva normal. Vaginal cuff intact. Cervix is absent. Uterus is absent. Breasts: Breasts are soft. Right: Normal. Left: Normal. Cardiovascular: Rate and Rhythm: Normal rate and regular rhythm. Pulmonary: Effort: Pulmonary effort is normal. Breath sounds: Normal breath sounds. Abdominal: General: Bowel sounds are normal. There is no distension. Palpations: Abdomen is soft. Tenderness: There is no abdominal tenderness. There is no guarding or rebound. Musculoskeletal: General: No swelling. Normal range of motion. Right lower leg: No edema. Left lower leg: No edema. Neurological: Mental Status: She is alert and oriented to person, place, and time. Skin: General: Skin is warm and dry. Psychiatric: Mood and Affect: Mood normal. Behavior: Behavior normal. Vitals and nursing note reviewed. Exam conducted with a process improvement consultant present. Vitals: Estimated body mass index is 33.73 kg/m as calculated from the following: Height as of 23: 5' 6 . Weight as of this encounter: 209 lb. BP: 120/78 No LMP recorded. Patient has had a hysterectomy. ASSESSMENT & PLAN ICD-10-CM 1. Well woman exam with routine gynecological exam Z01.419 THIN PREP TIS PAP AND HR HPV DNA 2. Breast cancer screening by mammogram Z12.31 Bilateral screening mammogram Bilateral screening mammogram Annual: Patient presents today for an annual exam. Patient states she is doing well and has no complaints. Pap was obtained without difficulty and patient given mammogram order to have scheduled/obtained. Orders Placed This Encounter Procedures Bilateral screening mammogram Follow Up: Patient is to return in one year for annual unless needed otherwise. Documented by Melony Blanco LPN on behalf of: Clay Olguin DO [id number] Hospital Discharge instructions Patient Education 06/25/2024 09:54:39 BMI for Adults BMI for Adults Body mass index (BMI) is a number found using a person's weight and height. BMI can help tell how much of a person's weight is made up of fat. BMI does not measure body fat directly. It is used instead of tests that directly measure body fat, which can be difficult and expensive. What are BMI measurements used for? BMI is useful to: Find out if your weight puts you at higher risk for medical problems. Help recommend changes, such as in diet and exercise. This can help you reach a healthy weight. BMIscreening can be done again to see if these changes are working. How is BMI calculated? Your height and weight are measured. The BMI is found from those numbers. This can be done with U.S. or metric measurements. Note that charts and online BMI calculators are available to help you findyour BMI quickly and easily without doing these calculations. To calculate your BMI in U.S. measurements: 1.Measure your weight in pounds (lb). 2.Multiply the number of pounds by 703. So, for an adult who weighs 150 lb, multiply that number by 703: 150 x 703, which equals 105,450. 3.Measure your height in inches. Then multiply that number by itself to get a measurement called inches squared. So, for an adult who is 70 inches tall, the inches squared measurement is 70 inches x 70 inches, which equals 4,900 inches squared. 4.Divide the total from step 2 (number of lb x 703) by the total from step 3 (inches squared): 105,450 4,900 = 21.5. This is your BMI. To calculate your BMI in metric measurements: 1.Measure your weight in kilograms (kg). For this example, the weight is 70 kg. 2.Measure your height in meters (m). Then multiply that number by itself to get a measurement called meters squared. So, for an adult who is 1.75 m tall, the meters squared measurement is 1.75 m x 1.75 m, which equals 3.1 meters squared. 3.Divide the number of kilograms (your weight) by the meters squared number. In this example: 70 3.1 = 22.6. This is your BMI. What do the results mean? BMI charts are used to see if you are underweight, normal weight, overweight, or obese. The following guidelines will be used: Underweight: BMI less than 18.5. Normal weight: BMI between 18.5 and 24.9. Overweight: BMI between 25 and 29.9. Obese: BMI of 30 or above. BMI is a tool and cannot diagnose a condition. Talk with your health care provider about what your BMI means for you. Keep these notes in mind: Weight includes fat and muscle. Someone with a muscular build, such as an athlete, may have a BMI that is higher than 24.9. In cases like these, BMI is not a correct measure of body fat. If you have a BMI of 25 or higher, your provider may need to do more testing to find out if excess body fat is the cause. BMI is measured the same way for males and females. Females usually have more body fat than males of the same height and weight. Where to find more information For more information about BMI, including tools to quickly find your BMI, go to: Centers for Disease Control and Prevention: cdc.gov [place] Heart Association: heart.org National Heart, Lung, and Blood Gunter: nhlbi.nih.gov This information is not intended to replace advice given to you by your health care provider. Make sure you discuss any questions you have with your health care provider. Document Revised: 05/12/2023 Document Reviewed: 05/05/2023 [employer] Patient Education 2023 [employer]. 06/25/2024 09:54:37 BMI for Adults BMI for Adults Body mass index (BMI) is a number found using a person's weight and height. BMI can help tell how much of a person's weight is made up of fat. BMI does not measure body fat directly. It is used instead of tests that directly measure body fat, which can be difficult and expensive. What are BMI measurements used for? BMI is useful to: Find out if your weight puts you at higher risk for medical problems. Help recommend changes, such as in diet and exercise. This can help you reach a healthy weight. BMIscreening can be done again to see if these changes are working. How is BMI calculated? Your height and weight are measured. The BMI is found from those numbers. This can be done with U.S. or metric measurements. Note that charts and online BMI calculators are available to help you findyour BMI quickly and easily without doing these calculations. To calculate your BMI in U.S. measurements: 1.Measure your weight in pounds (lb). 2.Multiply the number of pounds by 703. So, for an adult who weighs 150 lb, multiply that number by 703: 150 x 703, which equals 105,450. 3.Measure your height in inches. Then multiply that number by itself to get a measurement called inches squared. So, for an adult who is 70 inches tall, the inches squared measurement is 70 inches x 70 inches, which equals 4,900 inches squared. 4.Divide the total from step 2 (number of lb x 703) by the total from step 3 (inches squared): 105,450 4,900 = 21.5. This is your BMI. To calculate your BMI in metric measurements: 1.Measure your weight in kilograms (kg). For this example, the weight is 70 kg. 2.Measure your height in meters (m). Then multiply that number by itself to get a measurement called meters squared. So, for an adult who is 1.75 m tall, the meters squared measurement is 1.75 m x 1.75 m, which equals 3.1 meters squared. 3.Divide the number of kilograms (your weight) by the meters squared number. In this example: 70 3.1 = 22.6. This is your BMI. What do the results mean? BMI charts are used to see if you are underweight, normal weight, overweight, or obese. The following guidelines will be used: Underweight: BMI less than 18.5. Normal weight: BMI between 18.5 and 24.9. Overweight: BMI between 25 and 29.9. Obese: BMI of 30 or above. BMI is a tool and cannot diagnose a condition. Talk with your health care provider about what your BMI means for you. Keep these notes in mind: Weight includes fat and muscle. Someone with a muscular build, such as an athlete, may have a BMI that is higher than 24.9. In cases like these, BMI is not a correct measure of body fat. If you have a BMI of 25 or higher, your provider may need to do more testing to find out if excess body fat is the cause. BMI is measured the same way for males and females. Females usually have more body fat than males of the same height and weight. Where to find more information For more information about BMI, including tools to quickly find your BMI, go to: Centers for Disease Control and Prevention: cdc.gov [place] Heart Association: heart.org National Heart, Lung, and Blood Gunter: nhlbi.nih.gov This information is not intended to replace advice given to you by your health care provider. Make sure you discuss any questions you have with your health care provider. Document Revised: 05/12/2023 Document Reviewed: 05/05/2023 [employer] Patient Education 2023 [employer]. 06/25/2024 09:43:57 Iliotibial Band Syndrome Rehab Iliotibial Band Syndrome Rehab Ask your health care provider which exercises are safe for you. Do exercises exactly as told by your health care provider and adjust them as directed. It is normal to feel mild stretching, pulling, tightness, or discomfort as you do these exercises. Stop right away if you feel sudden pain or your pain gets significantly worse. Do not begin these exercises until told by your health care provider. Stretching and [id number] exercises These exercises warm up your muscles and joints and improve the movement and flexibility of your hip and pelvis. Quadriceps stretch, prone 1.Lie on your abdomen (prone position) on a firm surface, such as a bed or padded floor. 2.Bend your left / right knee and reach back to hold your ankle or pant leg. If you cannot reach your ankle or pant leg, loop a belt around your foot and grab the belt instead. 3.Gently pull your heel toward your buttocks. Your knee should not slide out to the side. You should feel a stretch in the front of your thigh and knee (quadriceps). 4.Hold this position for seconds. Repeat times. Complete this exercise times a day. Iliotibial band stretch An iliotibial band is a strong band of muscle tissue that runs from the outer side of your hip to the outer side of your thigh and knee. 1.Lie on your side with your left / right leg in the top position. 2.Bend both of your knees and grab your left / right ankle. Stretch out your bottom arm to help youbalance. 3.Slowly bring your top knee back so your thigh goes behind your trunk. 4.Slowly lower your top leg toward the floor until you feel a gentle stretch on the outside of yourleft / right hip and thigh. If you do not feel a stretch and your knee will not fall farther, placethe heel of your other foot on top of your knee and pull your knee down toward the floor with your foot. 5.Hold this position for seconds. Repeat times. Complete this exercise times a day. Strengthening exercises These exercises build strength and endurance in your hip and pelvis. Endurance is the ability to use your muscles for a long time, even after they get tired. Straight leg raises, side-lying This exercise strengthens the muscles that rotate the leg at the hip and move it away from your body (hip abductors). 1.Lie on your side with your left / right leg in the top position. Lie so your head, shoulder, hip,and knee line up. You may bend your bottom knee to help you balance. 2.Roll your hips slightly forward so your hips are stacked directly over each other and your left /right knee is facing forward. 3.Tense the muscles in your outer thigh and lift your top leg 4 6 inches (10 15 cm). 4.Hold this position for seconds. 5.Slowly lower your leg to return to the starting position. Let your muscles relax completely before doing another repetition. Repeat times. Complete this exercise times a day. Leg raises, prone This exercise strengthens the muscles that move the hips backward (hip extensors). 1.Lie on your abdomen (prone position) on your bed or a firm surface. You can put a pillow under your hips if that is more comfortable for your lower back. 2.Bend your left / right knee so your foot is straight up in the air. 3.Squeeze your buttocks muscles and lift your left / right thigh off the bed. Do not let your back arch. 4.Tense your thigh muscle as hard as you can without increasing any knee pain. 5.Hold this position for seconds. 6.Slowly lower your leg to return to the starting position and allow it to relax completely. Repeat times. Complete this exercise times a day. Hip hike 1.Stand sideways on a bottom step. Stand on your left / right leg with your other foot unsupported next to the step. You can hold on to a railing or wall for balance if needed. 2.Keep your knees straight and your torso square. Then lift your left / right hip up toward the ceiling. 3.Slowly let your left / right hip lower toward the floor, past the starting position. Your foot should get closer to the floor. Do not lean or bend your knees. Repeat times. Complete this exercise times a day. This information is not intended to replace advice given to you by your health care provider. Make sure you discuss any questions you have with your health care provider. Document Revised: 10/29/2020 Document Reviewed: 10/29/2020 [employer] Patient Education 2023 [employer]. 06/25/2024 09:43:55 Iliotibial Band Syndrome Iliotibial Band Syndrome Iliotibial band syndrome is a condition that often causes knee pain. It can also cause pain in the outside of the hip, thigh, and knee. The iliotibial band is a strip of tissue in each of the legs. This band runs from the outside of the hip and down the thigh to the outside of the knee. Repeatedly bending and straightening your knee can irritate your iliotibial band. What are the causes? This condition is caused by inflammation from rubbing (friction) of the iliotibial band as it movesover the thigh bone (femur) when you bend and straighten your knee again and again. What increases the risk? You are more likely to develop this condition if: You change elevation often while running on a treadmill. You run very long distances. You recently increased the length or intensity of your workouts. Intensity means how much effort you put in. You run downhill often, or you just started running downhill. You ride a bike very far or often. You may also be at greater risk if: You start a new workout routine without first warming up your muscles. You have a job that requires you to bend, squat, or climb often. What are the signs or symptoms? Symptoms of this condition include: Pain along the outside of your knee that may be worse with activity, especially running or going upand down stairs. A feeling like a snap over your knee or hip. Swelling on the outside of your knee. Pain or a feeling of tightness in your hip. How is this diagnosed? This condition is diagnosed based on: Your symptoms. Your medical history. A physical exam. You may also see a health care provider who specializes in reducing pain and improving movement (physical therapist). A physical therapist may do an exam to check your balance, movement, and way of walking or running (gait) to see whether the way you move could add to your injury. You may also havetests to measure your strength, flexibility, and range of motion. How is this treated? This condition may be treated by: Taking NSAIDs, such as ibuprofen, to help relieve pain and swelling. Resting and limiting exercise. Returning to activities gradually. Doing exercises to improve movement and strength (physical therapy) as told by your health care provider. Having an injection of steroid medicine. This is medicine that helps relieve inflammation. Having surgery. This may be done if your symptoms do not improve after other treatments. Follow these instructions at home: Managing pain, stiffness, and swelling If directed, put ice on the injured area. To do this: Put ice in a plastic bag. Place a towel between your skin and the bag. Leave the ice on for 20 minutes, 2 3 times a day. Remove the ice if your skin turns bright red. This is very important. If you cannot feel pain, heat, or cold, you have a greater risk of damage to the area. Activity Return to your normal activities as told by your health care provider. Ask your health care provider what activities are safe for you. Include low-impact activities, such as swimming, in your exercise routine. Check with your health care provider to make sure running is safe for you. Do exercises as told by your health care provider. General instructions Take kxlv-uda-zsycymc and prescription medicines only as told by your health care provider. Make sure you wear shoes that fit well and have good cushioning and arch support. Keep all follow-up visits. This is important. How is this prevented? Warm up and stretch before being active. Cool down and stretch after being active. Give your body time to rest between periods of activity. Consider getting help from a head field hockey coach or new product trainer to come up with a safe running plan and a plan to advance (progress) your training that fits your goals and ability. Change directions often while running around a track. Replace your shoes when the soles are worn out. Maintain physical fitness. This includes strength and flexibility. Contact a health care provider if: Your pain does not improve. Your pain gets worse even with treatment. Summary Iliotibial band syndrome is a condition that often causes knee pain. It can also cause pain in the outside of your hip, thigh, and knee. Treatment includes taking NSAIDs, resting, returning to activities gradually, and doing physical therapy exercises. Return to your normal activities as told by your health care provider. Ask your health care provider what activities are safe for you. This information is not intended to replace advice given to you by your health care provider. Make sure you discuss any questions you have with your health care provider. Document Revised: 12/22/2020 Document Reviewed: 12/22/2020 [employer] Patient Education 2023 [employer]. Follow Up Care 06/25/2024 08:37:10 With:Ariel Meeks MD Address: [address] [place] [address]- When:2 to 4 weeks only if needed [facility] 10-21-2024 NotePatient Education BMI for Adults Body mass index (BMI) is a number found using a person's weight and height. BMI can help tell how much of a person's weight is made up of fat. BMI does not measure body fat directly. It is used instead of tests that directly measure body fat, which can be difficult and expensive. What are BMI measurements used for? BMI is useful to: ? Find out if your weight puts you at higher risk for medical problems. ? Help recommend changes, such as in diet and exercise. This can help you reach a healthy weight. BMI screening can be done again to see if these changes are working. How is BMI calculated? Your height and weight are measured. The BMI is found from those numbers. This can be done with U.S. or metric measurements. Note that charts and online BMI calculators are available to help you findyour BMI quickly and easily without doing these calculations. To calculate your BMI in U.S. measurements: 1. Measure your weight in pounds (lb). 2. Multiply the number of pounds by 703. ? So, for an adult who weighs 150 lb, multiply that number by 703: 150 x 703, which equals 105,450. 3. Measure your height in inches. Then multiply that number by itself to get a measurement called inches squared. ? So, for an adult who is 70 inches tall, the inches squared measurement is 70 inches x 70 inches, which equals 4,900 inches squared. 4. Divide the total from step 2 (number of lb x 703) by the total from step 3 (inches squared): 105,450 ? 4,900 = 21.5. This is your BMI. To calculate your BMI in metric measurements: 1. Measure your weight in kilograms (kg). ? For this example, the weight is 70 kg. 2. Measure your height in meters (m). Then multiply that number by itself to get a measurement called meters squared. ? So, for an adult who is 1.75 m tall, the meters squared measurement is 1.75 m x 1.75 m, which equals 3.1 meters squared. 3. Divide the number of kilograms (your weight) by the meters squared number. In this example: 70 ?3.1 = 22.6. This is your BMI. What do the results mean? BMI charts are used to see if you are underweight, normal weight, overweight, or obese. The following guidelines will be used: ? Underweight: BMI less than 18.5. ? Normal weight: BMI between 18.5 and 24.9. ? Overweight: BMI between 25 and 29.9. ? Obese: BMI of 30 or above. BMI is a tool and cannot diagnose a condition. Talk with your health care provider about what your BMI means for you. Keep these notes in mind: ? Weight includes fat and muscle. Someone with a muscular build, such as an athlete, may have a BMIthat is higher than 24.9. In cases like these, BMI is not a correct measure of body fat. ? If you have a BMI of 25 or higher, your provider may need to do more testing to find out if excess body fat is the cause. ? BMI is measured the same way for males and females. Females usually have more body fat than malesof the same height and weight. Where to find more information For more information about BMI, including tools to quickly find your BMI, go to: ? Centers for Disease Control and Prevention: cdc.gov ? [place] Heart Association: heart.org ? National Heart, Lung, and Blood Gunter: nhlbi.nih.gov This information is not intended to replace advice given to you by your health care provider. Make sure you discuss any questions you have with your health care provider. Document Revised: 05/12/2023 Document Reviewed: 05/05/2023 [employer] Patient Education ? 2023 [employer] Nutrition BMI for Adults Body mass index (BMI) is a number found using a person's weight and height. BMI can help tell how much of a person's weight is made up of fat. BMI does not measure body fat directly. It is used instead of tests that directly measure body fat, which can be difficult and expensive. What are BMI measurements used for? BMI is useful to: ? Find out if your weight puts you at higher risk for medical problems. ? Help recommend changes, such as in diet and exercise. This can help you reach a healthy weight. BMI screening can be done again to see if these changes are working. How is BMI calculated? Your height and weight are measured. The BMI is found from those numbers. This can be done with U.S. or metric measurements. Note that charts and online BMI calculators are available to help you findyour BMI quickly and easily without doing these calculations. To calculate your BMI in U.S. measurements: 1. Measure your weight in pounds (lb). 2. Multiply the number of pounds by 703. ? So, for an adult who weighs 150 lb, multiply that number by 703: 150 x 703, which equals 105,450. 3. Measure your height in inches. Then multiply that number by itself to get a measurement called inches squared. ? So, for an adult who is 70 inches tall, the inches squared measurement is 70 inches x 70 inches, which equals 4,900 inches squared. 4. Divide the total from step 2 (number of lb x 703) (more content not included)...[facility]09-13-2023 Hospital Discharge instructions Patient Education 05/18/2023 21:35:55 BMI for Adults BMI for Adults What is BMI? Body mass index (BMI) is a number that is calculated from a person's weight and height. BMI can help estimate how much of a person's weight is composed of fat. BMI does not measure body fat directly.Rather, it is an alternative to procedures that directly measure body fat, which can be difficult and expensive. BMI can help identify people who may be at higher risk for certain medical problems. What are BMI measurements used for? BMI is used as a screening tool to identify possible weight problems. It helps determine whether a person is obese, overweight, a healthy weight, or underweight. BMI is useful for: Identifying a weight problem that may be related to a medical condition or may increase the risk for medical problems. Promoting changes, such as changes in diet and exercise, to help reach a healthy weight. BMI screening can be repeated to see if these changes are working. How is BMI calculated? BMI involves measuring your weight in relation to your height. Both height and weight are measured,and the BMI is calculated from those numbers. This can be done either in [place] ([place] or metric measurements. Note that charts and online BMI calculators are available to help you find your BMI quickly and easily without having to do these calculations yourself. To calculate your BMI in [place] ([place] measurements: 1.Measure your weight in pounds (lb). 2.Multiply the number of pounds by 703. For example, for a person who weighs 180 lb, multiply that number by 703, which equals 126,540. 3.Measure your height in inches. Then multiply that number by itself to get a measurement called inches squared. For example, for a person who is 70 inches tall, the inches squared measurement is 70 inches x 70inches, which equals 4,900 inches squared. 4.Divide the total from step 2 (number of lb x 703) by the total from step 3 (inches squared): 126,540 4,900 = 25.8. This is your BMI. To calculate your BMI in metric measurements: 1.Measure your weight in kilograms (kg). 2.Measure your height in meters (m). Then multiply that number by itself to get a measurement called meters squared. For example, for a person who is 1.75 m tall, the meters squared measurement is 1.75 m x 1.75 m, which is equal to 3.1 meters squared. 3.Divide the number of kilograms (your weight) by the meters squared number. In this example: 70 3.1 = 22.6. This is your BMI. What do the results mean? BMI charts are used to identify whether you are underweight, normal weight, overweight, or obese. The following guidelines will be used: Underweight: BMI less than 18.5. Normal weight: BMI between 18.5 and 24.9. Overweight: BMI between 25 and 29.9. Obese: BMI of 30 or above. Keep these notes in mind: Weight includes both fat and muscle, so someone with a muscular build, such as an athlete, may havea BMI that is higher than 24.9. In cases like these, BMI is not an accurate measure of body fat. To determine if excess body fat is the cause of a BMI of 25 or higher, further assessments may needto be done by a health care provider. BMI is usually interpreted in the same way for men and women. Where to find more information For more information about BMI, including tools to quickly calculate your BMI, go to these websites: Centers for Disease Control and Prevention: www.cdc.gov [employer] Heart Association: www.heart.org National Heart, Lung, and Blood Gunter: www.nhlbi.nih.gov Summary Body mass index (BMI) is a number that is calculated from a person's weight and height. BMI may help estimate how much of a person's weight is composed of fat. BMI can help identify thosewho may be at higher risk for certain medical problems. BMI can be measured using [place] measurements or metric measurements. BMI charts are used to identify whether you are underweight, normal weight, overweight, or obese. This information is not intended to replace advice given to you by your health care provider. Make sure you discuss any questions you have with your health care provider. Document Revised: 05/14/2020 Document Reviewed: 03/21/2020 [employer] Patient Education 2022 [employer]. 05/18/2023 21:35:53 Excision of Skin Lesions Excision of Skin Lesions Excision of a skin lesion is the removal of a section of skin by making small incisions in the skin. Through this process, the lesion is completely removed. This procedure is often done to treat or prevent cancer or infection. It may also be done to improve cosmetic appearance. You may have this procedure to remove: Cancerous (malignant) growths, such as basal cell carcinoma, squamous cell carcinoma, or melanoma. Noncancerous (benign) growths, such as a cyst or lipoma. Growths, such as moles or skin tags, which may be removed for cosmetic reasons. Various excision or surgical techniques may be used depending on your condition, the location of the lesion, and your overall health. Tell your health care provider about: Any allergies you have. All medicines you are taking, including vitamins, herbs, eye drops, creams, and eqhd-caj-[id number] medicines. Any problems you or family members have had with anesthetic medicines. Any bleeding problems you have. Any surgeries you have had. Any medical conditions you have. Whether you are or may be . What are the risks? Generally, this is a safe procedure. However, problems may occur, including: Bleeding. Infection. Scarring. Recurrence of the cyst, lipoma, or cancer. Allergic reaction to anesthetics, surgical materials, or ointments. Damage to nerves, blood vessels, muscles, or other structures. What happens before the procedure? Medicines Ask your health care provider about: Changing or stopping your regular medicines. This is especially important if you are taking diabetes medicines or blood thinners. Taking medicines such as aspirin and ibuprofen. These medicines can thin your blood. Do not take these medicines unless your health care provider tells you to take them. Taking zqte-kbf-zscymbp medicines, vitamins, herbs, and supplements. General instructions Do not use any products that contain nicotine or tobacco. These products include cigarettes, chewing tobacco, and vaping devices, such as e-cigarettes. If you need help quitting, ask your health careprovider. Follow instructions from your health care provider about eating or drinking restrictions. Ask your health care provider: ?How your surgery site will be marked. ?What steps will be taken to help prevent infection. These steps may include: ?Removing hair at the surgery site. ?Washing skin with a germ-killing soap. ?Taking antibiotic medicine. Ask your health care provider if you will need someone to take you home from the hospital or clinicafter the procedure. What happens during the procedure? You will be given a medicine to numb the area (local anesthetic). Your health care provider will remove the lesions using one of the following excision techniques. ?Complete surgical excision. This procedure may be done to treat a cancerous growth or a noncancerous cyst or lesion. ?A small scalpel or scissors will be used to gently cut around and under the lesion until it is completely removed. ?If bleeding occurs, it will be stopped with a device that delivers heat (electrocautery). ?The edges of the wound may be stitched (sutured) together. ?A bandage (dressing) will be applied. ?Samples will be sent to a lab for testing. ?Excision of a cyst. ?An incision will be made on the cyst. ?The entire cyst will be removed through the incision. ?The incision may be closed with sutures. ?Shave excision. This may be done to remove a mole or other small growths. ?A small blade or scalpel will be used to shave off the lesion. ?The wound is usually left to heal on its own without sutures. ?The sample may be sent to a lab for testing. ?Punch excision. This may be done to completely remove a mole or other small growths. ?A small tool that is like a cookie cutter or a hole punch is used to cut a little shell tribe shape out of theskin. ?The outer edges of the skin will be sutured together. ?The sample may be sent to a lab for testing. ?Mohs micrographic surgery. This is usually done to treat skin cancer. This type of excision is mostly used on the face and ears. This procedure is minimally invasive, and it ensures the best cosmetic outcome. ?A scalpel or a loop instrument will be used to remove layers of the lesion until all the abnormal or cancerous tissue has been removed. ?The wound may be sutured, depending on its size. ?The tissue will be checked under a microscope right away. The procedure may vary among health care providers and hospitals. At the end of any of these procedures, antibiotic ointment will be applied as needed. What happens after the procedure? Talk with your health care provider to discuss any test results, treatment options, and if necessary, the need for more tests. Keep all follow-up visits. This is important. Summary Excision of a skin lesion is the removal of a section of skin by making small incisions in the skin. This procedure is often done to treat or prevent skin cancer, remove benign growths, or it may be done to improve cosmetic appearance. Various excision or surgical techniques may be used depending on your condition, the location of the lesion, and your overall health. After the procedure, talk with your health care provider to discuss any test results, treatment options, and if necessary, the need for more tests. Keep all follow-up visits. This is important. This information is not intended to replace advice given to you by your health care provider. Make sure you discuss any questions you have with your health care provider. Document Revised: 03/23/2022 Document Reviewed: 03/23/2022 [employer] Patient Education 2022 [employer]. Follow Up Care 05/18/2023 15:03:17 With:Ariel Meeks MD Address: [address] [place] [id number] When: Unknown [facility] Evaluation + Plan note No data available for this section [facility] Diagnosis Well woman exam with routine gynecological exam Routine gynecological examination Breast cancer screening by mammogram [facility] Diagnosis Melanocytic nevus of trunk- Primary Benign neoplasm of skin of trunk, except scrotum Lentigines Actinic keratosis Seborrheic keratosis Personal history of squamous cell carcinoma of skin Personal history of other malignant neoplasm of skin Dermatofibroma of left upper extremity Dermatofibroma of right lower extremity [facility]* Diagnosis Screening for heart disease- Primary Screening for other and unspecified cardiovascular conditions H/O abdominal hysterectomy H/O degenerative disc disease Encounter for medical examination to establish care History of squamous cell carcinoma excision Indigestion Dyspepsia and other specified disorders of function of stomach Murmur Undiagnosed cardiac murmurs Diarrhea, unspecified type Right lower quadrant abdominal pain Screening for lipid disorders Screening for thyroid disorder Screening for deficiency anemia Screening for other and unspecified deficiency anemia BMI 33.0-33.9,adult [facility] Diagnosis Urine frequency- Primary BMI 32.0-32.9,adult Anxiety Anxiety state, unspecified Right lower quadrant abdominal pain [facility] Diagnosis SI (sacroiliac) joint dysfunction- Primary Nonallopathic lesion of sacral region, not elsewhere classified BMI 31.0-31.9,adult Anxiety Anxiety state, unspecified Burping Flatulence, eructation, and gas pain Diarrhea, unspecified type [facility] Diagnosis Sweating profusely- Primary Generalized hyperhidrosis Anxiety Anxiety state, unspecified BMI 30.0-30.9,adult Panic attack Panic disorder without agoraphobia [facility]* Diagnosis Anxiety Anxiety state, unspecified Sweating profusely Generalized hyperhidrosis [facility] No data available for this section [facility] No data available for this section [facility] Summary Purpose Family History Relationship Condition Age at Onset Recorded Date/T winnie mother Diabetes mellitus Unknown HypertensionUnknownfatherAlive and wellUnknown Advance Directives Advance Directive Response Recorded Date/ Time Advance Directives Yes March 27 2:36pm Chief Complaint and Reason for Visit Chief Complaint Admit Date Cough, Congestion September 01, 2024 10:03am Screening September 11, 2024 3: 20pm Reason for Visit Admit Date RSV (respiratory syncytial virus infecti on) September 01, 2024 10:03am Additional Source Comments INFORMATION SOURCE (unrecogn ized section and content) DATE CREATED AUTHOR 12/25/2021 [facility] DATE CREATED AUTHOR AUTHOR'S ORGANIZ ATION 09/17/2024 [facility] DATE CREATED AUTHOR AUTHOR'S ORGANIZ ATION 01/16/2025 [facility] DATE CREATED AUTHOR AUTHOR'S ORGANIZ ATION 05/31/2025 [facility] EPIC Patient Care team informatio n (unrecognized section and content) Team Status: Active Member Role Status Dates Ariel Meeks MD Primary Care Provider Active Team Status: Inactive Member Role Status Dates Ariel Meeks MD Primary Care Provider Active Start: September 01, 2024 End: September 01warner Herron APRNAtstephany ProviderActiveStart: September 01, 2024 End: September 01, 2024 Team Status: Inactive Member Role Status Dates Ariel Meeks MD Primary Care Provider Active Start: September 11, 2024 End: September 11, 2024Referral SelfAttending ProviderActiveStart: September 11, 2024 End: September 11STEPHANIE Motteferring ProviderActiveStart: September 11, 2024 End: September 11, 2024Team MemberRelationshipSpecialtyStart DateEnd Date Chelle Walker MD [address] [place] [address] [facility] - [facility]Team MemberRelationshipSpecialtyStart DateEnd Date Chelle Walker MD [address] [place] [address] PCP - [facility]02/22/25Te MemberRelationshipSpecialtyStart [facility] Walker MD [address] [place] [address] PCP - [facility]02/22/25Te MemberRelationshipSpecialtyStart Date[facility] Chelle Walker MD [address] [place], [place] [address] PCP - [facility]02/22/25Te MemberRelationshipSpecialtyStart DateEnd [facility] Chelle Walekr MD [address] [place], [place] [address] PCP - [facility]02/22/25 Reason for Visit (unrecogniz ed section and content) ReasonCommentsWell Women VisitReasonCommentsSkin CheckReasonCommentsBreast Cancer ScreeningCompleted [facility]23 [facility]Comments[facility] Cancer Screening ScheduledReasonCommentsMed RefillImmunizationsDeclines at this time.Bre[facility] Cancer ScreeningScheduled at [facility] 06/2025ReasonCommentsMed Change Request Goals (unrecognized section and content) Goals may be documented in a n alternate section FOR RECORDS PERTAINING TO PATIENTS WHO ARE OR HAVE BEEN ENROLLED IN A CHEMICAL DEPENDENCY/SUBSTANCEABUSE PROGRAM, SOME INFORMATION MAY BE OMITTED. This clinical summary was aggregated from multiple sources. Caution should be exercised in using it in the provision of clinical care. This summary normalizes information from multiple sources, and as a consequence, information in this document may materially change the coding, format and clinical context of patient data. In addition, data may be omitted in some cases. CLINICAL DECISIONS SHOULD BE BASED ON THE PRIMARY CLINICAL RECORDS. [facility] [employer] [facility]. provides no warranty or guarantee of the accuracy or completeness of information in this document.
--- OUTSIDE RECORDS SUMMARY | 2025-07-24 20:42 | XMS_ITS | Clinical Summary ---
Author Organization [facility] Address [address] [place] [address] Care Team Providers Care Particle Board Supervisor Name Role Phone Chelle Walker MD Primary Care Provider Allergies No known active allergies Medications MedicationSigDispense QuantityRefillsLast FilledStart DateEnd DateStatus Tirzepatide-Weight Management 5 MG/0.5ML solution auto-injector Inject 5 mg under the skin 1 (one) time per weekActive hydrOXYzine HCl (Atarax) 25 MG tablet Indications:Anxiety,Sweating profuselyTake 1 tablet (25 mg) by mouth as needed at bedtime for anxiety 90 tablet 5009/23/2025ctive hydrOXYzine HCl (Atarax) 25 MG tablet Indications:Anxiety,Sweating profuselyTake 1 tablet (25 mg) by mouth as needed at bedtime for anxiety 30 tablet Discontinued Active Problems No known active problems Encounters DateTypeDepartmentCare OxgnWwsgcgyckmh34/19/2025 3:00 PM ESTOffice Visit [facility] [address] [place] [place] [address] Clay Olguin, DO Well woman exam with routine gynecological exam; Breast cancer screening by oflxszbjw13/19/2025amboo flowsheet [facility] [address] [place] [address] [place] [address] Clay Olguin DO 06/22/2025Refill [place] [address] [place] [address] Candi Kebede, BRICK CHIMNEY BUILDER Anxiety; Sweating /24/2025 3:00 PM EDTOffice Visit [place] [address] [place] [address] Candi Kebede, BRICK CHIMNEY BUILDER Sweating profusely (Primary Dx); Anxiety; BMI 30.0-30.9,adult; Panic asesll2205/29/2025[facility] flowsheet [place] [address] [place] [address] Candi Kebede BRICK CHIMNEY BUILDER 05/29/20253359Bhpufy02/17/3321Ypgnnw56/25/2025 3:00 PM EDTOffice Visit [place] [address] [place] [address] Candi Kebede NP SI (sacroiliac) joint dysfunction (Primary Dx); BMI 31.0-31.9,adult; Anxiety; Burping; Diarrhea, unspecified type04/29/2025[facility] flowsheet [place] [address] [place] [address] Candi Kebede, BRICK CHIMNEY BUILDER 04/29/20255646Ltisma67/22/2025Travelfrom Last 3 Months Family History Medical HistoryRelationNameCommentsBreast cancerMaternal GrandmotherDiabetes MotherSkin cancerMotherMelanomaNeg HxRelationNameStatusCommentsMaternal GrandmotherDeceasedMother Social History Tobacco UseTypesPacks/DayYears UsedDateSmoking Tobacco: NeverSmokeless Tobacco: Never Tobacco Cessation:Counseling Given: Not Answered Alcohol UseStandard Drinks/WeekCommentsNot Currently0 (1 standard drink = 0.6 oz pure alcohol)caffeine 1-2 cups/day; [id number] Health LiteracyAnswerDate Recorded How often do you need to have someone help you when you read instructions, pamphlets, or other written material from your doctor or pharmacy?Never 02/21/2025Humiliation, Afraid, Rape, and Kick questionnaireAnswerDate Recorded Within the last year, have you been afraid of your partner or ex-partner?No 02/21/2025Within the last year, have you been humiliated or emotionally abused in other ways by your partner or ex-partner?No02/21/2025Within the last year, have you been kicked, hit, slapped, or otherwise physically hurt by your partner or ex-partner?No02/21/2025Within the last year, have you been raped or forced to have any kind of sexual activity by your partner or ex-partner?No02/21/2025 Social Connection and Isolation PanelAnswerDate RecordedIn a typical week, how many times do you talk on the phone with family, friends, or neighbors?More than three times a week02/21/2025How often do you get together with friends or relatives?More than three times a week02/21/2025How often do you attend anglican or yarsani services?Patient tsyozimp88/19/2025Do you belong to any clubs or organizations such as anglican groups, unions, fraternal or athletic groups, or school groups?No02/21/2025How often do you attend meetings of the clubs or organizations you belong to?Never02/21/2025re you , , , , never , or living with a partner?Living with hsikaiq5302/21/2025 AUDIT-CAnswerDate RecordedQ1: How often do you have a drink containing alcohol? Monthly or less02/21/2025Q2: How many drinks containing alcohol do you have on a typical day when you are drinking?3 or Q3: How often do you have six or more drinks on one occasion?Less than iaqecnr5302/21/2025Overall Financial Resource Strain (CARDIA)AnswerDate RecordedHow hard is it for you to pay for the very basics like food, housing, medical care, and heating?Not hard at all 02/21/2025PHQ-2AnswerDate RecordedPatient Health Questionnaire-2 Score0 02/22/2025[facility] Occupational Health - Occupational Stress QuestionnaireAnswerDate RecordedDo you feel stress - tense, restless, nervous, or anxious, or unable to sleep at night because yourmind is troubled all the time - these days?To some wrpsec6102/21/2025Exercise Vital SignAnswerDate Recorded On average, how many days per week do you engage in moderate to strenuous exercise (like a brisk walk)?2 days02/21/2025On average, how many minutes do you engage in exercise at this level?20 min02/21/2025Hunger Vital SignAnswerDate RecordedWithin the past 12 months, you worried that your food would run out before you got the money to buymore.Never true02/21/2025Within the past 12 months, the food you [...] time?No02/21/2025Number of Times Moved in the Last YearNot on file 02/21/2025t any time in the past 12 months, were you homeless or living in a skilled nursing (including now)?No02/21/2025CommentsNoSex and Gender Information ValueDate RecordedSex Assigned at KsxbuFqsgxh48/18/2023 10:08 AM EDTLegal Sex Udcsdk4911/17/2022 7:26 PM EDTGender WwmaislyRxkoyq14/18/2023 10:08 AM EDTSexual OrientationChoose not to vqngwxvi17/18/2023 10:08 AM EDT Last Filed Vital Signs Vital SignReadingTime TakenCommentsBlood Dzjvruvz161/7011 3:16 PM EST Yeywx9422/ 3:03 PM ZDLKlfbydvvmva58.7 ??C (98 ??F)05/29/2025 3:03 PM EDT Respiratory Rate--Oxygen Jcdravzdya92%05/29/2025 3:03 PM EDTInhaled Oxygen Concentration--Zffcpf69.7 kg (186 lb 12.8 oz)07/24/2025 3:16 PM MVFSsazan249.6 cm (5' 6 )05/29/2025 3:03 PM EDTBody Mass Index30.15005/29/2025 3:03 PM EDT Plan of Treatment DateTypeDepartmentCare Team (Latest Contact Info)Dhsjwcvgqge34/25/2025 3:40 PM ESTOffice Visit [facility] [place] [facility] [address] [place] [address] Candi Kebede NP [address] [place] [address] 02/19/2026 10:00 AM EDTOffice Visit [facility] [address] [place] [address] Milly Dias PA [address] [place] [address] Health MaintenanceDue DateLast DoneCommentsCT Xdylsfdldvpg56/08/1977FIT-DNA 1976FIT1976FOBT1976 7067Rjsnxnmbypzly32/08/1214Exawwdtce54/13/2022 05/18/2021, 05/15/2020, 04/24/2019, Additional history existsCOVID-19 Vaccine ( season), 10/29/2020, 10/01/2020Influenza Vaccine (#1)1544Bxlrcbtdefs50/12/203505/5Colorectal Cancer Screening 01/14/2035HPV/RvknujImxykxhehxmd91/18/2021, 04/18/2020, 04/04/2019Cervical Cancer ScreeningDiscontinuedPap HnhsaGvtadyvxvqho35/13/2024, 07/11/2023 Pneumococcal Vaccine: Pediatrics (0 to 5 Years) and At-Risk Patients (6 to 64 Years)Aged OutNo longer eligible based on patient's age to complete this topic Procedures Procedure NamePriorityDate/TimeAssociated DiagnosisCommentsPAP SMEARRoutine 07/18/2024 12:00 AM ESTBI MAMMOGRAM SCREENING YCDKHINJIPwsiwto52/13/2021 Excessive and frequent menstruation with regular cycle Dysmenorrhea, unspecified Family history of malignant neoplasm of breast Leiomyoma of uterus, unspecified Chronic salpingitis Diffuse cystic mastopathy of right breast Encounter for gynecological examination (general) (routine) without abnormal findings Encounter for screening mammogram for malignant neoplasm of breast THINPREP TIS PAP REFLEX HPV MRNA E6/E7 (59681)Vqczcgb0904/22/2021 from Last 3 Months or Most Recently Relevant to Health Maintenance Results * Pap Smear (07/18/2024 12:00 AM EST)Specimen (Source)Anatomical Location / LateralityCollection Method / VolumeCollection TimeReceived TimeSwabCervical swab / Unknown Narrative Authorizing ProviderResult TypeResult StatusFazio Nurse [facility] ObLAB CYTOLOGY ORDERABLESFinal ResultPerforming OrganizationAddressCity/State/ZIP CodePhone Number EXTERNAL LAB * Bilateral screening mammogram (05/18/2021)Anatomical RegionLateralityModality BreastBilateralMammographySpecimen (Source)Anatomical Location / Laterality Collection Method / VolumeCollection TimeReceived Time Impressions 05/18/2021 12:00 AM EDT NO MAMMOGRAPHIC EVIDENCE OF MALIGNANCY. ROUTINE FOLLOW-UP IS RECOMMENDED IN ONE YEAR. RESULT CODE: 1 ?? Negative DENSITY CODE: 2 (approximately 25-50% glandular) FOLLOW UP: 1YR The false-negative rate of mammography is approximately 10-percent. Management of a palpable abnormality must be based on clinical grounds. Patient was entered into a reminder system with a target due date for the next mammogram. Impression dictated by: Melony Justice M.D.05/18/2021 3:50 PM Dictation Location: DWS01 Transcribed By: ? PWS ?05/18/21 1550 Dictated By: ?Melony Justice MD ?05/18/21 1547 Signed By: <Electronically signed by MD Melony Justice in OV> ? 05/18/21 1550 Narrative 05/18/2021 12:00 AM EDT PERFORMED AT W LOCATION:[place] [address] ?[facility] [place] ?[address] ? [place] [address] ? Mammography Report ? Signed Patient: Gera,Lyly D ?MR#: [id number] : 1975 ?Acct:[id number] Age/Sex: 45 / F ?ADM Date: 05/18/21 Loc: [place] ?Room: ?Type: REG CLI Attending Dr: Dean Buitrago MD Ordering Provider: Shukri Buitrago MD Date of Service: 05/18/21 MM/MM screening mammo BI w/CAD: scrn;Cervicovaginal cytology normal or benign Copies to: MD Shukri White MD CLINICAL DATA: ??Screening for malignancy. BILATERAL SCREENING MAMMOGRAMS - FULL FIELD DIGITAL WITH TOMOSYNTHESIS AND CAD Tomosynthesis craniocaudal and mediolateral oblique views of both breasts were obtained using low- dose digital technique. ??Comparison is made to prior studies from April 05, 2017 through May 15, 2020. ??This examination was reviewed with the aid of CAD. There are scattered fibroglandular densities. ??There are no dominant masses, typically malignant calcifications or architectural distortion. ??There has been no significant interval change. MM/MM screening mammo BI w/CAD Procedure Note CONVERSION, GENERIC - 03/11/2023 PERFORMED AT [facility] LOCATION:[address] [place] [address] Mammography Report Signed Patient: Lyly Boss DMR#: [id number] : 1975Acct:[id number] Age/Sex: 45 / FADM Date: 05/18/21 Loc: [place] Room:Type: [facility] Attending Dr: Dean Buitrago MD Ordering Provider: Shukri Buitrago MD Date of Service: 05/18/21 MM/MM screening mammo BI w/CAD:scrn;Cervicovaginal cytology normal or benign Copies to: MD Shukri White MD CLINICAL DATA: Screening for malignancy. BILATERAL SCREENING MAMMOGRAMS - FULL FIELD DIGITAL WITH TOMOSYNTHESISAND CAD Tomosynthesis craniocaudal and mediolateral oblique views of both breastswere obtained using low- dose digital technique. Comparison is made to prior studies from 2016 through May 15, 2020. This examination was reviewed with the aid of CAD. There are scattered fibroglandular densities. There are no dominantmasses, typically malignant calcifications or architectural distortion. There [...] system with a target due date for thenext mammogram. Impression dictated by: Melony Justice M.D.05/18/2021 3:50 PM Dictation Location: [facility] Transcribed By: [facility] 05/18/21 1550 Dictated By: Melony Justice MD 05/18/21 8137 Signed By: <Electronically signed by MD Melony Justice in OV> 05/18/21 1550 Authorizing ProviderResult TypeResult StatusDean Vidal BI PROCEDURES Final Result * THINPREP TIS PAP REFLEX HPV MRNA E6/E7 (06884) (04/22/2021)ComponentValueRef RangeTest MethodAnalysis TimePerformed AtPathologist SignatureCLINICAL INFORMATION:None givenNOMS LEGACY EXTERNAL LABLMP:04/06/21N[facility] EXTERNAL LABPREV. PAP:04/18/20 NEGATIVENOMS LEGACY EXTERNAL LABPREV. BX:NON[facility] EXTERNAL LABSOURCE:Cervix, EndocervixNOMS LEGACY EXTERNAL LABSTATEMENT OF ADEQUACY:SEE COMMENTNOMS LEGACY EXTERNAL LABComment: Satisfactory for evaluation. Endocervical/transformation zone component present. INTERPRETATION/RESULT:Negative for intraepithelial lesion or malignancy.[facility] EXTER[facility] LABCOMMENT:This Pap test has been evaluated with computer assisted technology.[facility] LABCYTOTECHNOLOGIST:SEE COMMENTSee Note:[facility] EXTERNAL LABComment: Reference Range: ZL, CT(ASCP) CT screening location: [facility], [address] [place] [address], [place] [address]. COMMENTSEE COMMENTNOMS LEGACY EXTERNAL LABComment: EXPLANATORY NOTE: The Pap is a screening test for cervical cancer. It is not a diagnostic test and is subject to false negative and false positive results. It is most reliable when a satisfactory sample, regularly obtained, is submitted with relevant clinical findings and history, and when the Pap result is evaluated along with historic and current clinical information. Specimen (Source)Anatomical Location / LateralityCollection Method / Volume Collection TimeReceived Time04/22/2021 Narrative Authorizing ProviderResult TypeResult StatusJonathan F LeakeECW LABSFinal Result Performing OrganizationAddressCity/State/ZIP CodePhone Number [facility] from Last 3 Months or Most Recently Relevant to Health Maintenance Insurance Care Teams Team MemberRelationshipSpecialtyStart DateEnd Chelle Ramires MD [address] [place] [address] [facility]02/22/25
--- OUTSIDE RECORDS SUMMARY | 2025-07-24 20:42 | XMS_ITS | Encounter Summary ---
Author Organization [facility] Address [address] [facility] [address] [place] [address] Care Team Providers Care Boilermaker Apprentice Name Role Phone Chelle Walker MD Primary Care Provider [phone] Encounter Details DateTypeDepartmentCare Team (Latest Contact Info)Vzgiqrwogft70/19/2025amboo flowsheet [facility] [address] [place] [address] lCay Olguin DO [address] [facility] [address] [facility] [address] Elissa Andre, [facility] Social History Tobacco UseTypesPacks/DayYears UsedDateSmoking Tobacco: NeverSmokeless Tobacco: NeverAlcohol UseStandard Drinks/WeekCommentsNot Currently0 (1 standard drink = 0.6 oz pure alcohol)caffeine 1-2 cups/day; ouhmY0098 Health LiteracyAnswerDate RecordedHow often do you need [...] times a week02/21/2025How often do you attend methodist or temple services?Patient /19/2025Do you belong to any clubs or organizations such as methodist groups, unions, fraternal or athletic groups, or school groups?No02/21/2025How often do you attend meetings of the clubs or organizations you belong to?Never02/21/2025re you , , , , never , or living with a partner?Living with qsnkmgo1602/21/2025UDIT-CAnswerDate RecordedQ1: How often do you have a drink containing alcohol?Monthly or less02/21/2025Q2: How many drinks containing alcohol do you have on a typical day when you are drinking?3 or 4 02/21/2025Q3: How often do you have six or more drinks on one occasion?Less than brfjgov4602/21/2025Overall Financial Resource Strain (CARDIA)AnswerDate Recorded How hard is it for you to pay for the very basics like food, housing, medical care, and heating?Not hard at all02/21/2025PHQ-2AnswerDate RecordedPatient Health Questionnaire-2 Mqkyg426Finblue mountain hospital, inc. [facility] of Occupational Health - Occupational Stress QuestionnaireAnswerDate RecordedDo you feel stress - tense, restless, nervous, or anxious, or unable to sleep at night because your mind is troubled all the time - these days?To some kqtpox3002/21/2025Exercise Vital SignAnswerDate RecordedOn average, how many days [...] were you homeless or living in a alf (including now)?No02/21/2025CommentsNoSex and Gender InformationValueDate RecordedSex Assigned at MrhtfUuseem90/18/2023 10:08 AM EDT Legal TsnPxhzic00/15/2023 7:26 PM EDTGender QmljmydbEflkdm07/18/2023 10:08 AM EDTSexual OrientationChoose not to cwsggejv56/18/2023 10:08 AM EDTdocumented as of this encounter Plan of Treatment DateTypeDepartmentCare Team (Latest Contact Info)Sxwapktmnuy92/25/2025 3:40 PM ESTOffice Visit [facility] [address] [place] [address] Candi Kebede NP [address] [place] [address] 02/19/2026 10:00 AM EDTOffice Visit [facility] [place] [facility] [address] [place] [address] Milly Dias PA [address] [place] [address] documented as of this encounter Visit Diagnoses Not on filedocumented in this encounter Care Teams Team MemberRelationshipSpecialtyStart DateEnd Date Chelle Walker MD [address] [place] [address] PCP - GeneralFamily Medicine02/22/25documented as of this encounter
--- OUTSIDE RECORDS SUMMARY | 2025-07-24 20:42 | XMS_ITS | Patient Health Record ---
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 Phone Rodriguezcharley Jose Primary Care Provider Allergies No Known Allergies Reason For Referral Reason recurrent diarrhea Diagnosis 1 Diarrhea (R19.7) Referral Organization [facility] Referring Provider First Name Jose Referring Provider Last Name Jeanna Referring Provider Speciality Family Med macarena Referred Provider Clifton Turner Referred Provider Specialty General Surg raza Referral Priority Routine Medications Medication SIG (Take, Route, Frequency, Duration) Notes Start Date End Date Status Amoxicillin-Pot Clavulanate 875-125 MG 1 tablet Orally every 12 hrs; Duration: 10 days 5ActiveHyoscyamine Sulfate 0.125 MG1-2 tabs SL SL every 4 hrs PRN abd pain5ActiveProtonix 40 MG1 tablet Orally Once a day; Duration: 30 days 5Active Social History Tobacco Use: Social History Observation Description Date Details (start date - stop date) Never Smoker NA - NA Tobacco Use/Smoking Question Answer Notes Patient is a nonsmoker Alcohol Screen (Audit-C) Question Answer Notes Did you have a drink containing alcohol in the p ast year? No Nhvmlt9XqgxqstdugxpxzXrtjafmyABFYT-J (Standard) Question Answer Notes Did you have a drink containing alcohol in the p ast year? No Fwpqws4BqmtmvvcgdfamyXsneuqyi Problems Problem Type SNOMED Code ICD Code Onset Dates Problem Status W/U Status Risk Notes Problem Fatigue (57802044) Fatigue (R53.83) ActiveconfirmedProblemGastroesophageal reflux disease (526668431)GERD (gastroesophageal reflux disease) (K21.9)ActiveconfirmedProblemDepression (710236104)Depression (F32.9)ActiveconfirmedProblemOsteoarthritis of knee (929119226)Knee osteoarthritis (M17.9)ActiveconfirmedProblemWell adult (784054858)Well adult (Z00.00)ActiveconfirmedProblemCervical lymphadenopathy (304020963)Cervical lymphadenopathy (R59.0)ActiveconfirmedProblemDisplacement of lumbar intervertebral disc without myelopathy (44768061)Herniated lumbar disc without myelopathy (M51.26)ActiveconfirmedProblemHeart murmur (34401232)Cardiac murmur (R01.1)Activeconfirmed Vital Signs Temperature 98.4 degrees Fahrenheit 01/21/2025 Blood pressure oldstbzhs78 mm Hg01/21/20259412Nkfbtx14 in01/21/2025lood pressure avnfuowk172 mm Hg01/21/20258692Wapzuc053.8 lbs01/21/2025BMI34.02 kg/m201/21/2025 Encounters Encounter Location Date Provider Diagnosis [facility] [address] [place] [address] 09/11/2024 Jose Meeks [facility] [place] [address] 11/27/2024Doug HoyDiarrhea R19.7 and GERD (gastroesophageal reflux disease) [place]21.[place] [place] [address] 01/21/2025Doug HoyAcute non-recurrent sinusitis, unspecified location J01.90 and Nasal congestion R09.81 Assessments Encounter Date Diagnosis (ICD Code) Assessment Notes Treatment Notes Treatment Clinical Notes Section Notes 11/27/2024 Diarrhea (ICD-10 - R19.7) 11/27/2024GERD (gastroesophageal reflux disease) (ICD-10 - K21.9)5Acute non-recurrent sinusitis, unspecified location (ICD-10 - J01.90)Rest and drink more liquids, especially water. You may use a humidifier or vaporizer to help keep the drainage moist. Xzvz-hqi-sbkwnlr Nasal Saline may help the stuffy and runny nose. Use Ibuprofen and or Tylenol as needed for fever, chills, body aches or pain. Children 5 years old should not be given utxv-hqt-pdwlafk cough and cold medications such as guaifenesin and dextromethorphan. If you're over age 5, you may try ftnv-yjw-bttdlrd cold medications such as guaifenesin and dextromethorphan, or multi-symptom cold reliever such as Dayquil to help reduce the symptoms. Antibiotics have been prescribed. You should take these until completed and follow the directions. Antibiotics can sometimescause upset stomach, and in rare cases, serious allergic reactions or serious gastrointestinal problems. If you start having severe abdominal pain, severe vomiting, or bloody diarrhea, you should be reevaluated by your physician or urgent care immediately. Follow up with your Primary Care Provider or return to clinic if symptoms do not improve within 3-5 days01/21/2025Nasal congestion (ICD-10 - R09.81) Plan Of Treatment Pending Test Test Name Order Date MRI KNEE LT WO CON 06/20/2023 XR KNEE LT 3V 06/20/2023 XR KNEE RT 3V 06/20/2023 Insurance Providers Payer Name Payer Address Payer Phone Subscriber Number Group Number Insured Name Patient Relationship to Insured Coverage Start Date Coverage End Date MMO [employer] [address] [place] [address] [id number] Maicol Bosself - patient is the insured Medical (General) History Medical History History ICD Code Cervical lymphadenopathy R59.0 Depression F32.9 Fatigue R53.83 Well adult Z00.00 Cardiac murmur R01.1 Herniated lumbar disc without myelopathy M51.26 Surgical History Surgery Date(Month/Year) hysterectomy 12/22/21 Colonoscopy 01/14/25
[2025-07-30 16:10] LABS: Age Gdln ACOG Testing Note (.); IGP, Aptima HPV, rfx 16/18,45 Note (.)
== END 2025-07-24 20:38 | disposition home or self-care (01) ==
LOC: LAB 20:37
PROVIDERS: PCP Obstetrics & Gynecology; Visit Provider Obstetrics & Gynecology
DX: Z01.419 Encounter for gynecological examination (general) (routine) without abnormal findings (principal)
CPT/HCPCS: 87624; 88175

== ENCOUNTER 2025-07-27 16:19 | Emergency (ER) | payer OTHER, SELFPAY ==
--- OUTSIDE RECORDS SUMMARY | 2025-07-24 15:00 | XMS_ITS | Encounter Summary ---
Author Organization [facility] Address [address] [place] [address] Care Team Providers Care Claims Service Adjustor Name Role Phone Chelle Walker MD Primary Care Provider [phone] Reason for Visit * ReasonCommentsWell Women Visit Encounter Details DateTypeDepartmentCare Team (Latest Contact Info)Fooafltkatg61/19/2025 3:00 PM ESTOffice Visit [facility] [address] [place] [address] Clay Olguin DO [address] [place] [address] Well woman exam with routine gynecological exam; Breast cancer screening by mammogram Social History Tobacco UseTypesPacks/DayYears UsedDateSmoking Tobacco: NeverSmokeless Tobacco: NeverAlcohol UseStandard Drinks/WeekCommentsNot Currently0 (1 standard drink = 0.6 oz pure alcohol)caffeine 1-2 cups/day; [id number] Health LiteracyAnswerDate RecordedHow often do you need to have someone help you when you read instructions, pamphlets, or other written material from your doctor or pharmacy? Never02/21/2025Humiliation, Afraid, Rape, and Kick questionnaireAnswerDate RecordedWithin the last year, have you been afraid of your partner or ex-partner?No02/21/2025Within the last year, have you been humiliated or emotionally abused in other ways by your partner or ex-partner?No02/21/2025 Within the last year, have you been kicked, hit, slapped, or otherwise physically hurt by your partner or ex-partner?No02/21/2025Within the last year, have you been raped or forced to have any kind of sexual activity by your part ner or ex-partner?No02/21/2025Social Connection and Isolation PanelAnswerDate RecordedIn a typical week, how many times do you talk on the phone with family, friends, or neighbors?More than three times a week02/21/2025How often do you get together with friends or relatives?More than three times a week02/21/2025How often do you attend druze or jainism services?Patient rxbwahtk21/19/2025Do you belong to any clubs or organizations such as druze groups, unions, fraFrilp or athletic groups, or school groups?No02/21/2025How often do you attend meetings of the clubs or organizations you belong to?Never02/21/2025re you , , , , never , or living with a partner?Living with jvdskdy3102/21/2025UDIT-CAnswerDate RecordedQ1: How often do you have a drink containing alcohol?Monthly or less02/21/2025Q2: How many drinks containing alcohol do you have on a typical day when you are drinking?3 or 4 02/21/2025Q3: How often do you have six or more drinks on one occasion?Less than iovkmty6002/21/2025Overall Financial Resource Strain (CARDIA)AnswerDate Recorded How hard is it for you to pay for the very basics like food, housing, medical care, and heating?Not hard at all02/21/2025PHQ-2AnswerDate RecordedPatient Health Questionnaire-2 Yhhil149[facility] [place] of Occupational Health - Occupational Stress QuestionnaireAnswerDate RecordedDo you feel stress - tense, restless, nervous, or anxious, or unable to sleep at night because your mind is troubled all the time - these days?To some uvcbnu9302/21/2025Exercise Vital SignAnswerDate RecordedOn average, how many days per week do you engage in moderate to strenuous exercise (like a brisk walk)?2 days02/21/2025On average, how many minutes do you engage in exercise at this level?20 min02/21/2025Hunger Vital SignAnswerDate RecordedWithin the past 12 months, you worried that your food would run out before you got the money to buymore.Never true02/21/2025 Within the past 12 months, the food you bought just didn't last and you didn't have money to get more.Never true02/21/2025PRAPARE - TransportationAnswerDate RecordedIn the past 12 months, has lack of transportation kept you from medical appointments or from getting medications?No02/21/2025In the past 12 months, has lack of transportation kept you from meetings, work, or from getting things needed for daily living?No02/21/2025Housing Stability Vital SignAnswerDate RecordedIn the last 12 months, was there a time when you were not able to pay the mortgage or rent on time?No02/21/2025Number of Times Moved in the Last Year Not on file02/21/2025t any time in the past 12 months, were you homeless or living in a fpc (including now)?No02/21/2025CommentsNoSex and Gender InformationValueDate RecordedSex Assigned at XqixsNjbgaw36/18/2023 10:08 AM EDT Legal GruSbsghf99/15/2023 7:26 PM EDTGender GbpqickpKitiok36/18/2023 10:08 AM EDTSexual OrientationChoose not to mydehuby33/18/2023 10:08 AM EDTdocumented as of this encounter Last Filed Vital Signs Vital SignReadingTime TakenCommentsBlood Latblxqv466/7007/24/2025 3:16 PM EST Pulse--Temperature--Respiratory Rate--Oxygen Saturation--Inhaled Oxygen Concentration--Hqtqsm20.7 kg (186 lb 12.8 oz)07/24/2025 3:16 PM ESTHeight--Body Mass Index30.15005/29/2025 3:03 PM EDTdocumented in this encounter Plan of Treatment DateTypeDepartmentCare Team (Latest Contact Info)Stggdkowsud13/25/2025 3:40 PM ESTOffice Visit [facility] [address] [place] [address] Candi Kebede NP [address] [place] [address] 02/19/2026 10:00 AM EDTOffice Visit [facility] [address] [place] [address] Milly Dias PA [address] [place] [address] NameTypePriorityAssociated DiagnosesOrder ScheduleBilateral screening mammogram ImagingRoutine Breast cancer screening by mammogram Expected: 07/24/2025 (Approximate), Expires: 09/23/2026THIN PREP TIS PAP AND HR HPV DNAPathology and CytologyRoutine Well woman exam with routine gynecological exam Ordered: 07/24/2025documented as of this encounter Visit Diagnoses Diagnosis Well woman exam with routine gynecological exam Routine gynecological examination Breast cancer screening by mammogram documented in this encounter Care Teams Team MemberRelationshipSpecialtyStart DateEnd Date Chelle Walker MD [address] [place] [address] PCP - GeneralFamily Medicine02/22/25documented as of this encounter
[2025-07-27 16:25] VITALS: BP 118/80; PULSE 80; TEMP 37.1; O2SAT 100
--- OUTSIDE RECORDS SUMMARY | 2025-07-27 16:39 | XMS_ITS | CCD ---
Author Organization [facility] Care Team Providers Care Traveling Repair Accountant Name Role Phone Ariel Meeks Primary Care Physician SOFI, DR FERRARA Admitting Unavailable SOFI, DR FERRARA Attending Unavailable SOFI, DR FERRARA Primary Care Unavailable SOFI, DR FERRARA Admitting Unavailable SOFI, DR FERRARA Attending Unavailable SOFI, DR FERRARA Primary Care Unavailable SOFI, DR FERRARA Consulting Unavailable [facility], DR EZIO Roach Consulting Unavailable SOFI, DR FERRARA Admitting Unavailable SOFI, DR FERRARA Attending Unavailable SOFI, DR FERRARA Primary Care Unavailable SOFI, DR FERRARA Consulting Unavailable SHERMAN, DR JOHNY Thurman Consulting Unavailable Unavailable Primary Care Provider Ariel Ding MD Primary Care Provider Self, Referral Attending Provider Unavailable Clay Olguin DO Referring Provider Self, Referral Admitting Unavailable Self, Referral Attending Unavailable Ariel Meeks Primary Care Unavailable Clay Olguin Referring Unavailable [phone] -Kiran Cordero Attending Unavaila ble [phone] Elias Servin Attending Unavail able RAJ Quintanilla Attending UnavailAriel Smiley Referring Unavailable Clifton TURNER Attending Unavailable NILLClifton R Referring Unavailable NILLClifton Attending Unavailable Clifton TURNER R Admitting Unavailable Chelle Walker MD Primary Care Provider JAMEE OROZCO Attending Unavailable MARLEEN JONES Attending Unavailable CLAY OLGUIN Attending Unavailable MARLEEN JONES Attending Unavailable MARLEEN JONES Attending Unavailable MARLEEN JONES Attending Unavailable Allergies Allergy ClassificationReported Allergen(s)Allergy TypeDate of OnsetReaction(s) Facility (1 source)No Known Medication Allergies; Translations: [No Known Medication Allergies]Propensity to adverse reactions (disorder)[facility] Repository Medications Current Medications MedicationDrug Class(es)DatesSig (Normalized)Sig (Original)Albuterol Sulfate 90 mcg/actuation HFA aerosol inhaler (1 source)Start: 49-44-4552Rbgkgugyz Sulfate 90 mcg/actuation HFA aerosol inhaler Active 2 INH INHALATION EVERY 4-6 HOURS as needed for shortness of breath or wheezing 6.7 7 September 01, 2024 12:00amduloxetine (12 sources)Serotonin and Norepinephrine Reuptake InhibitorStart: 05-18-2023 duloxetine Oral, Refills(s) 0 Start Date: 05/18/23 Status: OrderedStart: 05-18-2023 End: 69-78-2741HJJDSSZYVO HCL PO Take by mouth. 05/18/2023 02/19/2025 DiscontinuedStart: 12-36-4793KZQCBBMLFP HCL PO Take by mouth. 05/18/2023 Active Start: 54-53-4379beip 1 capsule by mouth once dailyDuloxetine 60 mg capsule,delayed release(DR/EC) Active 60 MG PO Daily December 02, 2021 11:00pm hydrOXYzine hydrochloride 25 mg oral tablet (5 sources)AntihistamineStart: 05-29-2025 End: 89-65-6486doamUWBjbou HCl (Atarax) 25 MG tablet Indications: Anxiety , Sweating profusely Take 1 tablet (25 mg) by mouth as needed at bedtime for anxiety 90 tablet 06/25/2025 09/23/2025 ActiveStart: 12-03-2021 End: 06-96-4331nfnm 1 capsule by mouth four times daily as needed for anxiety Hydroxyzine Pamoate 25 mg capsule Discontinued 25 MG PO Four times daily as needed for Anxiety December 02, 2021 11:00pm September 01, 2024 11:11am hyoscyamine sulfate 0.125 mg oral tablet (1 source)Start: 37-14-2645canv 1 tablet by mouth every four hours as needed for painLevsin 0.125 mg SL Tab 0.125 mg = 1 tab(s), Oral, q4hr, PRN abdominal pain, Refills(s) 0 Start Date: 12/03/24 Status: Ordered Repeat number: 1 methylPREDNISolone 4 mg oral tablet (1 source)CorticosteroidStart: 29-88-1852kfxj 1 tablet by mouth once Methylprednisolone (Medrol (Bassam)) 4 mg tablets,dose pack Active 0 PO per package directions September 01, 2024 12:00am PO PER PKG DIRMultivitamin preparation (1 source)Start: 64-10-9869jlbo 1 tablet by mouth once dailymultivitamin 1 tab(s), Oral, Daily, Refill(s) 0, Prophylaxis Start Date: 12/24/24 Status: Ordered Repeat number: 1mupirocin 0.02 mg/mg topical ointment (1 source)RNA Synthetase Inhibitor AntibacterialStart: 05-18-2023 End: 06-35-6948wdfuzncmn Top 2% Oint 1 ernestina, Topical, TID for 7 day(s), 22 gm, Refill(s) 0, [facility]/pharmacy #[id number], 167, cm, 05/18/23 15:22:00 EDT, Height/Length Dosing, 93.9, kg, 05/18/23 15:22:00 EDT, Weight Dosing Start Date: 05/18/23 Stop Date: 05/25/23 Status: Orderednaproxen 500 mg delayed release oral tablet (1 source)Nonsteroidal Anti-inflammatory DrugStart: 06-25-2024 End: 34-51-4815itww 1 tablet by mouth twice daily at mealtimenaproxen 500 mg oral enteric coated tablet 500 mg = 1 tab(s), Oral, BID, with food, X 10 day(s), # 20 tab(s), Refills(s) 0, Pharmacy: [facility]/pharmacy #[id number], 167, cm, 06/25/24 9:39:00 EDT, Height/Length Dosing, 93, kg, 06/25/24 9:39:00 EDT, Weight Dosing Start Date: 06/25/24 Stop Date: 07/05/24 Status:Orderedpantoprazole 40 mg delayed release oral tablet (1 source)Proton Pump InhibitorStart: 50-10-5210ukea 1 tablet by mouth once dailyProtonix 40 [...] oral capsule (3 sources)Tetracycline-class DrugStart: 08-03-2023 End: 06-55-7025ntov 1 capsule by mouth twice dailyminocycline 100 MG capsule Indications: Postoperative infection, unspecified type, initial encounter Take 1 capsule, by mouth, bid x 7 days 14 capsule 08/03/2023 07/18/2024 Discontinued (Other)Uq-Wb-Vvxi-Fa-Ca Carb-Vit K (Women's Multivitamin) 18 mg iron-400 mcg-500 mg Tablet (1 source)Start: 12-03-2021 End: 57-98-5909Zj-Nu-Mzls-Xd-Ca Carb-Vit K (Women's Multivitamin) 18 mg iron-400 mcg-500 mg Tablet Discontinued 2 TAB PO Daily December 02, 2021 11:00pm September 01, 2024 11:11amphentermine hydrochloride 37.5 mg oral tablet (7 sources)Sympathomimetic Amine AnorecticStart: 06-20-2023 End: 11-17-4675zanp 1 tablet by mouth once dailyAdipex-P 37.5 MG tablet Take 37.5 mg by mouth 1 (one) time each day at the same time. 06/20/2023 02/19/2025 DiscontinuedTirzepatide-Weight Management (Zepbound) 2.5 MG/0.5ML solution auto-injector (5 sources) End: 07-92-8388jqsiym 2.5 mg by subcutaneous injection every weekTirzepatide- [...] oral tablet (1 source)Opioid AgonistStart: 12-17-2021 End: 76-85-8546dfsc 1 tablet by mouth every four hours [...] Translations: [Other specified congenital malformations of intestine]Onset: 60-51-3724KugpooaHneruffjth disorders (1 source)Gastroesophageal reflux uwpybmq73-60-1802OagbvpuIyimxsysrcybt symptoms and ill-defined conditions (2 sources)Increased frequency of urination; Translations: [Frequency of micturition]39-64-1613GagliihtAsusm valve disorders (3 sources)Heart murmur; Translations: [Cardiac murmur, unspecified]12-03-2024 EpisodicMood disorders (1 source)Depressive lnhvipuk37-60-0782UnbnzxsJelhb and unspecified benign neoplasm (2 sources)Melanocytic nevus of trunk; Translations: [Melanocytic nevi of trunk] 86-18-2850DqxtzufpNndrd and unspecified benign neoplasm (2 sources)Dermatofibroma of left upper limb; Translations: [Other benign neoplasm of skin of left upper limb,including shoulder]18-55-1190ShjbsxgzAmjls and unspecified benign neoplasm (2 sources)Dermatofibroma of right lower limb; Translations: [Other benign neoplasm of skin of right lower limb, including hip]44-60-5037NirtgtwiWkdrz connective tissue disease (4 sources)Iliotibial band friction syndrome of right knee; Translations: [Iliotibial band syndrome, right leg]Onset: 30-62-3674OvelnagyUwmnr connective tissue disease (2 sources)H/O: osteoarthritis; Translations: [Personal history of other diseases of the musculoskeletal system and connective tissue]35-57-9675Eemzhjbx Other disorders of stomach and duodenum (2 sources)Indigestion; Translations: [Functional dyspepsia]01-30-5435Iikeulfx Other gastrointestinal disorders (1 source)Altered bowel cbodmfyf51-15-6130YrkztkaiIkdbx gastrointestinal disorders (4 sources)Diarrhea; Translations: [Diarrhea, unspecified]18-93-4272Eiyajrit Other gastrointestinal disorders (2 sources)Burping; Translations: [Eructation]81-19-9356GjajktqnNhjjr non- epithelial cancer of skin (2 sources)History of squamous cell carcinoma of skin; Translations: [Personal history of other malignant neoplasm of skin]28-00-3852PhpldnliDljnt nutritional; endocrine; and metabolic disorders (2 sources)Obese class I; Translations: [Body mass index (BMI) 33.0-33.9, adult] Onset: 38-87-2297IcxudrrKpzev nutritional; endocrine; and metabolic disorders (5 sources)Obesity; Translations: [Obesity, unspecified]Onset: 23-80-7773Fzoksgs Other nutritional; endocrine; and metabolic disorders (12 sources)Body mass index 30+ - obesity; Translations: [Body mass index (BMI) 33.0-33.9, adult]85-55-9636JawypbyUwqvw screening for suspected conditions (not mental disorders or infectious disease) (11 sources)Patient encounter status; Translations: [Encounter for screening mammogram for malignant neoplasm of breast]Onset: 930473-91-0165Pbsltceq Other skin disorders (1 source)Disorder of skin; Translations: [Disorder of the skin and subcutaneous tissue, unspecified]Onset: 33-50-0030LqmfggveAxawr skin disorders (2 sources)Lentiginosis; Translations: [Other melanin hyperpigmentation] 40-58-7022AzyzdgpvBmgnr skin disorders (2 sources)Actinic keratosis; Translations: [Actinic keratosis]02-19-2025 EpisodicOther skin disorders (2 sources)Seborrheic keratosis; Translations: [Other seborrheic keratosis] 90-69-4973LicxwzynGrzzt skin disorders (3 sources)Excessive sweating; Translations: [Generalized hyperhidrosis] 15-63-2787KgbjtzvdKwriypsg codes; unclassified (2 sources)History of abdominal hysterectomy; Translations: [Acquired absence of both cervix and uterus]26-10-9211MyvzcofmYdrxalnwkvy; intervertebral disc disorders; other back problems (2 sources)Sacroiliac disorder; Translations: [Sacrococcygeal disorders, not elsewhere classified]58-56-8372VxmgwvtcOjjhu infection (2 sources)Respiratory syncytial virus infection; Translations: [Other specified viral diseases]08-97-7997Qksdqupi Past or Other Problems Problem ClassificationProblemDateDocumented DateEpisodic/ChronicLymphadenitis (5 sources)Localized enlarged lymph nodes; Translations: [LOCALIZED ENLARGED LYMPH NODES]Onset: 65-14-4027TevdrxupXcrvitl and fatigue (4 sources)Other fatigue; Translations: [OTHER FATIGUE]Onset: 51-16-5381Coqbnsdw Viral infection (1 source)Disease caused by 2019-nCoV; Translations: [COVID-19] Results Test NameValueInterpretationReference RangeFacilityUrinalysis macro (dipstick) panel (U)on 90-71-6102Pphsdzhuw, UANegativeNegative - 4(70) +++ mg/dLNOMS HealthcareBlood, UANegativeNegative - 50 Rubén/mcLNOMS HealthcareClarity, UAClear NOMS HealthcareColor, UAYellowNOMS HealthcareGlucose, UANegativeNegative - 2000(110) ++++ mg/dLNOMS HealthcareKetones, UANegativeNegative - 160(16) ++++ mg/dLNOMS HealthcareLeukocytes, UANegativeNegative - 500+++ Yolanda/mcLNOMS HealthcareNitrite, UANegativeNegative - PositiveNOMS HealthcarepH, UA65 - 9NOMS HealthcareProtein, UANegativeNegative - 2000(20) ++++ mg/dLNOMS HealthcareSpec Grav, UA1.011 - 1.03NOMS HealthcareUrobilinogen, UA0.20.2 - 12 mg/dLNOMS HealthcareNOMS HealthcareNo Panel Informationon 80-48-6467EVIF HealthcareMain OR Intraoperative Recordon 68-81-7882Fkeu OR Intraoperative RecordMain OR Intraoperative Record IntraOp Document Type FT Summary Primary Physician: Clifton TURNER MD Finalized Date/Time: 01/15/25 13:29:19 Pt. Name: LYLY TOLBERT /Sex: 1975 Female Med Rec #: [id number] Physician: Clifton TURNER MD Financial #: [id number] Pt. Type: O Room/Bed: / Admit/Disch: 01/14/25 [...] 3 Case Attendee XENA ALICEA, Elvira Willoughby PAIN MANAGEMENT NURSE PRACTITIONER, Joann Conn Role Performed Surgeon - Primary Scrub - Primary PAIN MANAGEMENT NURSE PRACTITIONER Time In 01/14/25 08:51:00 01/14/25 08:51:00 01/14/25 08:51:00 Time Out 01/14/25 09:10:00 01/14/25 09:10:00 01/14/25 09:10:00 Procedure COLONOSCOPY(.) COLONOSCOPY(.) COLONOSCOPY(.) Comments Dr. Marte supervising case Last Modified By: Yasemin RN, Bree Hazel RN, Bree Hazel RN, Bree F 01/14/25 09:10:42 F 01/14/25 09:10:42 F 01/14/25 09:10:42 Entry 4 Case Attendee Bree Hazel RN Role Performed Brick Picker - Primary Time In 01/14/25 08:51:00 Time Out 01/14/25 09:10:00 Procedure COLONOSCOPY(.) Comments Last Modified By: Bree Hazel RN 01/14/25 09:10:42 Perioperative Protocols FT [...] Applicable) PreOp Antibiotic No Time Out Clifton TURENR MD, Given Participants Elvira Stearns Funni CRNA, [...] and tissue Entry 1 Skin Integrity Intact, [place], Warm, & Skin Abnormality No Dry Outcomes [...] By Bree Hazel RN (more content not included)...[facility] 13-01-8675AdeiffzbxWeucdgawn From: Francine Knight LPN To: N - Clinical; Sent: 01/15/2025 08:41:07 EDT Show up: 12/15/2034 07:00:00 EDT Subject: colonoscopy recall Due Date/Time: 01/14/2035 07:00:00 EDT Reminder/Recall Patient due for screening colonoscopy 01/14/2035.[facility] CenterDischarge Instructionson 51-58-3252Kyyefescn InstructionsDischarge Instructions LYLY TOLBERT :1975 Visit Date:01/14/2025 [...] When: Only if needed Where: [facility] [address], [address] [place] [address] [place] [phone]- Information Assurance (1) Medications What How Much When Instructions [...] [facility] Your doctor may also give you [...] mail asking you (more content not included)... [facility] CenterComment on above:Result Comment: Electronically Signed By: [...] Clifton TURNER When: Only if needed Where: [address] [place] [address], [facility] [address] [address] [facility] (1) Medications What How Much When Instructions [...] [facility] Your doctor may also give you specific [...] mail asking you (more content not included)... [facility] CenterComment on above:Result Comment: Electronically Signed By: Michael REECE, Stephenie Macdonald\.tod\Date and Time Signed: 01/14/25 09:16 EDT Inpatient Patient Summaryon 36-15-8468Ywfhodwnw Patient SummaryInpatient Patient Summary [address] [address] [facility] Clinical Discharge Instructions PERSON INFORMATION Name: LYLY TOLBERT PHYSICIANS Admitting Physician: Clifton TURNER MD Attending Physician: Clifton TURNER MD PCP: Ariel Meeks MD Discharge Diagnosis: Redundant colon Comment: PATIENT EDUCATION INFORMATION Instructions: Medication Leaflets: Follow up: With: Address: When: Clifton XENA [address], [address], [place] [phone] Business (1) , only if needed MEDICATION LIST Medications to Continue with No Changes Other Medications hyoscyamine (Levsin 0.125 mg SL Tab) 1 Tablets By Mouth every 4 hours as needed abdominal pain. multivitamin 1 Tablets By Mouth every day. pantoprazole (Protonix 40 mg Tab-DR) 1 Tablets By Mouth every day. Comment:[facility] CenterMain OR PACU II Recordon 74-97-6837Rkal OR PACU II RecordMain OR PACU II Record PACU Phase II Document Type FT Summary Primary Physician: Clifton TURNER MD Finalized Date/Time: 01/14/25 10:37:18 Pt. Name: LYLY TOLBERT Se/Sex: 1975 Female Med Rec #: [id number] Physician: Clifton TURNER MD Financial #: [id number] Pt. Type: O Room/Bed: / Admit/Disch: 01/14/25 [...] Stephenie Rodriguez RN Document Signatures Signed By: Stephenie Rodriguez RN 01/14/25 10:37NoDoctors HospitalMain OR Preoperative Recordon 97-08-4133Ulkn OR Preoperative RecordMain OR Preoperative Record Holding Area Document Type FT Summary Primary Physician: Clifton TURNER MD Finalized Date/Time: 01/14/25 08:18:36 Pt. Name: LYLY TOLBERT/Sex: 1975 Female Med Rec #: [id number] Physician: Clifton TURNER MD Financial #: [id number] Pt. Type: O Room/Bed: / Admit/Disch: 01/14/25 [...] Signatures Signed By: Benigno Steinberg RN 01/14/25 08:18[facility] CenterOutpatient Surgery Discharge Instructionon 10-44-0279Cinfolzexy Surgery Discharge InstructionOutpatient Surgery Discharge Instruction [place] [id number] Patient Discharge Instructions PERSON INFORMATION Name: LYLY [...] With: Address: When: Clifton [address], [address], [place] [phone] Business (1) , only if needed Pharmacy [...] serve you. Thank you for choosing [facility] HERE ARE THE MEDICATION CHANGES THAT OCCURRED DURING YOUR HOSPITAL STAY Medications to Continue with No Changes Other Medications hyoscyamine (Levsin 0.125 mg SL Tab) 1 Tablets By Mouth every 4 hours as needed abdominal pain. multivitamin 1 Tablets By Mouth every day. pantoprazole (Protonix 40 mg Tab-DR) 1 Tablets By Mouth every day. PATIENT EDUCATION INFORMATION Instructions: Medication Leaflets:[facility] CenterMM screening mammo BI w/CAD on 83-87-1063UQ screening mamm[facility] BI [facility] Main [place] [address] [place] [address] Mammography Report Signed Patient: Lyly Tolbert MR#: [id number] : 1975 Acct:[id number] Age/Sex: 48 / F ADM Date: 09/11/24 Loc: [place] Room: Type: [facility] Attending Dr: Referral Self Copies to: Clay [...] 09/11/24 1535 Signed By: 09/11/24 1539[facility] Physician GroupMammography reportOrdered By: Emiliano Tamayo on 48-50-1065Fnynwsjjry imaging [facility] Main [place] [address] [place] [address] Mammography Report Signed Patient: Lyly Tolbert MR#: [id number] : 1975 Acct:[id number] Age/Sex: 48 / F ADM Date: 5 Loc: [place] Room: Type: [facility] Attending Dr: Referral Self Copies to: Clay [...] MD 09/11/24 1535 Signed By: 09/11/24 1539 [facility] Work Phone: COVID Cepheidon 47-03-2658MYRG-CoV-2 (COVID-19) RNA LAKISHA+probe Ql (Unsp spec)COVID CepheidMercer County Community HospitalLaboratory - Microbiology and Antimicrobial susceptibilityon 20-62-0046QBEY-CoV-2 (COVID- 19) RNA LAKISHA+probe Ql (Unsp spec)NegativeMercer County Community HospitalNo Panel Informationon 13-72-0446IDZ Influenza A (PCR)NegativeMercer County Community HospitalPOC Influenza B (PCR)NegativeMercer County Community Hospital IGP,APTIMA HPV,AGE GDLNon 83-05-1225EKL GDLN ACOG TESTINGNote.[facility] Comment on above:TESTS RESULT FLAG UNITS REF RANGE LAB Clinician Provided Cytology Information Source.............Vagina No. of containers..01 ThinPrep Vial Age Algo ACOG Anai... 30-65 01 FLAG LEGEND: L-Low Normal,H-High Normal,LL-Alert Low,HH-Alert High <-Panic Low,>-Panic High,A-Abnormal,AA-Critical Abnormal Performed at: 01 =G [facility] [address] Halie Bright MD, HPV APTIMANegativeNegativeNOMS HealthcareComment on above:This nucleic acid amplification test detects fourteen high- risk HPV types (16,18,31,33,35,39,45,51,52,56,58,59,66,68) without differentiation. Performed at: = - [facility] [id number] Injection Molder: Halie Bright MD, Phone: [phone] Performed at: - [facility], [place] [id number] Injection Molder: Halie Bright MD, Phone: [phone] IGP, APTIMA HPV, RFX 16/18,45Note.NOMS HealthcareComment on above:TESTS RESULT FLAG UNITS REF RANGE LAB DIAGNOSIS: 02 NEGATIVE FOR INTRAEPITHELIAL LESION OR MALIGNANCY. Specimen adequacy: 02 Satisfactory for evaluation. No endocervical component is identified. Performed by: 02 Sabino Goff, Shipwright Supervisor (ASCP) . 02 Note: Note 02 The [...] 02 WB [facility] [address] [place] [address] Halie Bright MD, [facility]ENTERULA-Froedtert HospitalAmbulatory Visit Summaryon 37-48-4964Ycsbscojpp Visit SummaryAmbulatory Visit Summary LYLY TOLBERT :1975 [...] Duration: 10 Days with food Pickup at [facility]/pharmacy #[id number] Unchanged duloxetine By Mouth Contact prescribing physician if questions or concerns Pharmacy Information [facility]/pharmacy #[id number]: [address] [place], [place] [id number] [phone] Allergies No Known Medication Allergies Problems Ongoing [...] by your health care provider. Stretching and dzsfe-qg-uleejj exercises These exercises warm up your muscles [...] muscles and lift (more content not included)...Normal [facility] Medicine Office/Clinic Noteon 37-62-4502Woaoyp Medicine Office/Clinic NoteFawestborough behavioral healthcare hospital Medicine Office/Clinic Note Chief Complaint rt [...] Neurologic: full sensation to right LE/foot. Skin: [place], warm and dry. No rashes, ulcerations, or [...] day(s), # 20 tab(s), Refills(s) 0, Pharmacy: [facility]/pharmacy #[id number], 167, cm, 06/25/24 9:39:00 EDT, [...] medical support in addressing this problem. Visit [employer] for useful information to help make better choices when eating. Your BMI and weight management will be followed at subsequent visits. Ordered: Body Mass Index (BMI) documented 3008F 3. BMI 33.0-33.9,adult (Z68.33: Body mass index [BMI] 33.0-33.9, adult) See #2. Ordered: Body Mass Index (BMI) documented 3008F Follow-up With When Contact Information Ariel Meeks MD Within 2 to 4 weeks, only if needed [address] [place] [address]- Additional Instructions: Patient Education BMI for Adults [...] Nursing Judgment SARS-CoV-2 (COVID-19) mRNA-1273 vaccine 10/01/2020 GivenNoDoctors HospitalComment on above:Result Comment: Electronically Signed By: Aurora Quintanilla CNP.tdo\Date and Time Signed: 06/25/24 09:55 EDTCytology Cervical or vaginal smear or scraping studyOrdered By: Emelina Taylor on 91-84-6548WTVP HealthcareReference Laboratory TestingOrdered By: Neena DomainUser on 92-87-5396YOFO-CoV-2 (COVID-19) RNA LAKISHA+probe Ql (Resp)DetectedInvalid Interpretation CodeNot DetectedMERCY HOSP[facility] [place] SendOutsSSComment on above:Result Comment: Patients who have a positive COVID-19 test result may now have treatment options. Treatment options are available for patients with mild to moderate symptoms and for hospitalized patients. Visit our website at [email or web address] for resources and information. This nucleic acid amplification test was developed and its performance characteristics determined by [employer]. Nucleic acid amplification tests include RT-PCR and [...] detected) result in this assay. Performed at: [address] [id number] PhD Radha Eagle HEAD_NECKon 52-79-6458EW HEAD_NECKEXAM: US ST HEAD_NECK HISTORY: Lymphadenopathy COMPARISON: [...] Electronically authenticated by: JOHNY BOLANOS Date: 2021-07-08 19:23[facility] HEAD_NECKon 10-60-2403SU ST HEAD_NECKEXAM: US ST HEAD_NECK HISTORY: Fatigue [...] Electronically authenticated by: EZIO MORAN Date: 2021-05-05 16:43[facility] Vital Signs Date TimeVital SignValuePerforming AmqafprvaZvevvcqe39-52-4410 15:03-0400Body npixvl406.6 cmDaenrrique Jones [employer] Work Phone: [facility] HospitalDgulssjhke28-74-8772 15:03-0400Body mass index (BMI) [Ratio]30.96 kg/m5Hcttxgkdenrrique Jones [employer] Work Phone: [facility] HospitalIspxkkchbf20-14-9554 15:03-0400Body temperature 98.01 [degF]Marleen Jones [employer] Work Phone: [facility] HospitalRlfhglyabg94-23-2487 15:03-0400Body kwnyxd70 kg Marleen Jones [employer] Work Phone: [facility] HospitalCekkkqdsnx75-59-3713 15:03-0400Diastolic blood vaaobbqn44 mm[Hg]Marleen Jones [employer] Work Phone: [facility] HospitalKirdehgnho36-77-5773 15:03-0400Heart rate74 /min Marleen Jones [employer] Work Phone: [facility] HospitalNhpeigvpkr32-05-1038 15:03-9864KhN4% (BldA) [Mass fraction]98 %Marleen Jones [employer] Work Phone: [facility] HospitalJvifkdqmqf51-55-7348 15:03-0400Systolic blood pvjqzxua437 mm[Hg]Marleen Jones [employer] Work Phone: [facility] HospitalFmcqhmausx82-68-3980 15:00-0400Body .6 cmDaenrrique Jones [employer] Work Phone: [facility] HospitalMgkfuhbaqi55-33-8291 15:00-0400Body mass index (BMI) [Ratio]31.86 kg/p9Bjagmurkenrrique Jones [employer] Work Phone: [facility] HospitalUabhqjxrxx35-01-5461 15:00-0400Body temperature 98.01 [degF]Marleen Jones [employer]STATE PARALEGAL Work Phone: [facility] HospitalGsznixhzvk73-15-1836 15:00-0400Body aovkme70.54 kgDaenrrique Jones [employer]ALE[employer] Work Phone: [facility] HospitalSngkncekni02-65-5424 15:00-0400Diastolic blood yurkxgak20 mm[Hg]Marleen Jones [employer] Work Phone: [facility] HospitalTwjaklpgsq79-15-4578 15:00-0400Heart rate68 /min Marleen Jones [employer] Work Phone: [facility] HospitalTwxwrazrck02-81-7815 15:00-8065DyG1% (BldA) [Mass fraction]98 %Marleen Jones [employer] Work Phone: [facility] HospitalFdrtenoayj23-17-2696 15:00-0400Systolic blood bdyrknjh076 mm[Hg]Marleen Jones [employer] Work Phone: [facility] HospitalJiojhkpkix94-48-6559 08:24-0400Body pwiluf207.6 cmDaenrrique Jones [employer] Work Phone: [facility] HospitalMysumaxafb28-65-1918 08:24-0400Body mass index (BMI) [Ratio]32.15 kg/r9Geeyeopienrrique Jones [employer] Work Phone: [facility] HospitalDdvdgolsfj09-47-3735 08:24-0400Body temperature 98.2 [degF]Marleen Jones [employer] Work Phone: [facility] HospitalBbvspnbsza88-54-4319 08:24-0400Body zqxerb01.36 kgDaenrrique Jones [employer] Work Phone: [facility] HospitalPnhlawfqxo93-22-7249 08:24-0400Diastolic blood gtlpyxrm78 mm[Hg]Marleen Jones [employer] Work Phone: [facility] HospitalDdtlccpuvt58-00-1082 08:24-0400Heart rate65 /min Marleen Jones [employer] Work Phone: [facility] HospitalPznvexudyx43-48-5039 08:24-9278FiC3% (BldA) [Mass fraction]99 %Marleen Jones [employer] Work Phone: [facility] HospitalHtsmlyqfdz77-48-5243 08:24-0400Systolic blood kxaazwhb787 mm[Hg]Marleen Jones [employer] Work Phone: [phone] HospitalMlvftvrgzv95-12-1429 08:58-0400Body sjuxqa020.6 cmDaenrrique Jones [employer] Work Phone: [phone] HospitalDuxtorynwm27-34-1799 08:58-0400Body mass index (BMI) [Ratio]33.6 kg/u7Extqpceqenrrique Jones [employer] Work Phone: [facility] HospitalPnluhhqsiw24-39-9916 08:58-0400Body temperature 98.29 [degF]Marleen Jones [employer] Work Phone: [phone] HospitalSqoxivsuqv61-91-5195 08:58-0400Body bzypja66.44 kgDaenrrique Jones [employer] Work Phone: [phone] HospitalVdpvczljcp29-79-0118 08:58-0400Diastolic blood lnetrwon44 mm[Hg]Marleen Jones [employer] Work Phone: [phone]-[facility] HospitalHoprdnayxc89-71-8648 08:58-0400Heart rate77 /min Marleen Jones [employer] Work Phone: [phone] HospitalEcmxcohpsa80-59-2241 08:58-9798TpY2% (BldA) [Mass fraction]98 %Marleen Jones [employer] Work Phone: [facility] HospitalWruoiiinbs72-21-3579 08:58-0400Systolic blood kzzkayob189 mm[Hg]Marleen Jones [employer] Work Phone: [phone] HospitalHnekrplvkj56-33-0182 09:30-0400Heart rate65 /min Clifton NILL [facility]05-12-2025 09:30-0400 Respiratory rate16 /minMichael NILL [facility]05-12-2025 09:30-0400 Diastolic blood avtcaqqx14 mm[Hg]Clifton NILL [facility]05-12-2025 09:30-5225OoR1% (BldA) [Mass fraction]100 %Clifton NILL [facility]05-12-2025 09:30-0400 Systolic blood bafxfhwd211 mm[Hg]Clifton NILL [facility]05-12-2025 09:20-0400Heart rate78 /minMichael NILL [facility]05-12-2025 09:20-0400 Respiratory rate15 /minMichael NILL [facility]05-12-2025 09:20-4010YnY5% (BldA) [Mass fraction]100 %Clifton NILL [facility]05-12-2025 09:20-0400 Diastolic blood tijnlggl41 mm[Hg]Clifton NILL [facility]05-12-2025 09:20-0400 Systolic blood eenpfvyk978 mm[Hg]Clifton NILL [facility]05-12-2025 09:11-0400 Diastolic blood jtzdluwz83 mm[Hg]Clifton NILL [facility]05-12-2025 09:11-0400 Systolic blood mm[Hg]Clifton NILL [facility]05-12-2025 09:11-0400Body pvqsxvyobzu15.88 [degF]Clifton NILL [facility]05-12-2025 09:11-0400Heart rate73 /minMichael NILL [facility]05-12-2025 09:11-0400 Respiratory rate15 /minMichael NILL [facility]05-12-2025 09:11-9530XeD4% (BldA) [Mass fraction]95 %Clifton NILL [facility]05-12-2025 09:05-0400 Respiratory rate20 /minMichael NILL [facility]05-12-2025 09:00-0400 Respiratory rate22 /minMichael NILL [facility]05-12-2025 08:55-0400 Respiratory rate14 /minMichael NILL [facility]05-12-2025 08:28-0400Blood Pressure LocationMichael NILL [facility]05-12-2025 08:28-0400Body mtkrladizgq59.06 [degF]Clifton BAZANL [facility]12-28-2024 11:06-0500Body wfjlly466.64 cmAriel Meeks MD Work Phone: [facility]12-28-2024 11:06-0500 Body mass index (BMI) [Ratio]33.2 kg/w7GtolrfiAriel Meeks MD Work Phone: [facility]12-28-2024 11:06-0500 Body alzeqzzfdmk80.4 [degF]Ariel Meeks MD Work Phone: [facility]12-28-2024 11:06-0500 Body orihbt36.44 kgAriel Meeks MD Work Phone: [facility]12-28-2024 11:06-0500 Diastolic blood frqajwgk89 mm[Hg]Ariel Meeks MD Work Phone: [facility]12-28-2024 11:06-0500 Heart rate80 /Jacob Meeks MD Work Phone: [facility]12-28-2024 11:06-0500 SaO2% (BldA) [Mass fraction]97 %Ariel Meeks MD Work Phone: [facility]12-28-2024 11:06-0500 Systolic blood cqnhnoly670 mm[Hg]Ariel Meeks MD Work Phone: [facility]11-13-2024 15:32-0500 Body mass index (BMI) [Ratio]33.73 kg/a4Phjdv Clau DO Work Phone: [facility] HospitalCpqsqulmjc76-83-9126 15:32-0500Body crthav86.8 kg Clay Clau DO Work Phone: [phone]-[facility] HospitalRdhgezdczd97-69-7464 15:32-0500Diastolic blood xkpidyor99 mm[Hg]Clay Clau DO Work Phone: [facility] HospitalKysfgqlkmw95-21-5850 15:32-0500Systolic blood gkjiabha965 mm[Hg]Clay Clau DO Work Phone: [phone]-[facility] HospitalVgtrjfyanl61-51-7510 09:37-0400Blood Pressure LocationAurora Quintanilla [phone]-YfvgcMer[facility] Igzd67-02-2485 09:37-0400Body rtxvqrvacoh83.6 [degF]Aurora Quintanilla 577-0616Rrqaax-QllfeMercy Health [facility]sburg [facility] Vjal42-80-3964 09:37-0400Diastolic blood queiauvi39 mm[Hg]Aurora Quintanilla [phone]-OfszpMercy Health [facility] Oryc06-83-3758 09:37-0400Heart rate80 /minAurora Quintanilla [phone]-FibceMercy Health [facility] Wqob03-52-2861 09:37-5233MzA6% (BldA) [Mass fraction]99 %Aurora Quintanilla [phone]-TbwmlMercy Health [facility] Gypo39-42-8419 09:37-0400Systolic blood mm[Hg]Aurora Quintanilla [phone]-XsckaMercy Health [facility] Zeln22-85-3535 15:18-0400Blood Pressure LocationPatrick Elder [phone]-DncvfMercy Health [facility] Azfb69-90-9951 15:18-0400Diastolic blood xsnzezld51 mm[Hg]Patrick Elder [phone]-LgyjqMercy Health [facility] Uerp32-88-4623 15:18-0400Heart rate69 /minPatrick Elder 261-1824Ipzaan-JplbfMercy Health [facility] Osng76-18-9555 15:18-6148RxG8% (BldA) [Mass fraction]98 %Patrick Elder [phone]-ZpofaMercy Health Perrysburg [facility] Wnkx42-49-3149 15:18-0400Systolic blood zqieefqv579 mm[Hg]Patrick Jerrod [phone]-SanmfMercy Health Perrysburg [facility] Care Encounters Encounter DateEncounter TypeCare ProviderFacilityStart: 06-22-2025 End: 18-92-6157GeimjkUplgtmgp J Hart NP Work Phone: [facility] HospitalComment on above:Anxiety; Sweating profuselyStart: 05-29-2025 End: 15-70-1672Ihadkq outpatient visit 15 minutesDaenrrique Jones NP Work Phone: NOFairlawn Rehabilitation HospitalComment on above:Sweating profusely (Primary Dx); Anxiety; BMI 30.0-30.9,adult; Panic attackStart: 05-29-2025 End: 85-43-3282lsqvjsmlpkGCJRJFSV J HARTNot AvailableStart: 05-29-2025 End: 74-08-2110Kqnidd Jose Jones NP Work Phone: noPaul A. Dever State Schooltart: 05-29-2025 End: 66-10-7921Qpgjfy Jose Jones NP Work Phone: [facility] Silveira MedicineStart: 04-29-2025 End: 42-04-0015Vxlxwm outpatient visit 15 minutesDaenrrique Jones [employer] Work Phone: [facility] Yogesh Silveira MedicineComment on above:SI (sacroiliac) joint dysfunction (Primary Dx); BMI 31.0-31.9,adult; Anxiety; Burping; Diarrhea, unspecified typeStart: 04-29-2025 End: 28-62-0860uzkttjjtliMZNDMSDE J HARTNot AvailableStart: 04-29-2025 End: 86-41-9861Gglzui Jose Jones [employer] Work Phone: [facility]esh Silveira MedicineStart: 04-29-2025 End: 77-03-7299Cnpuih Jose Jones [employer] Work Phone: [facility] Silveira MedicineStart: 03-26-2025 End: 00-88-4009Pbkqpm Jose Jones [employer] Work Phone: noms NE FMStart: 03-26-2025 End: 36-31-6294Jbunhv Jose Jones [employer] Work Phone: [facility] NE FMStart: 03-26-2025 End: 55-00-7052Ksbbbv outpatient visit 25 minutesMarleen Jones NP Work Phone: [facility] NE FMComment on above:Urine frequency (Primary Dx); BMI 32.0-32.9,adult; Anxiety; Right lower quadrant abdominal painStart: 03-26-2025 End: 61-74-8196xpknqlizujJVPHTRMD J HARTNot AvailableStart: 02-22-2025 End: 79-78-9805Osbhep Jose Jones [employer] Work Phone: [facility] NE FMStart: 02-22-2025 End: 41-77-3600Cmljmv Jose Jones [employer] Work Phone: [facility] NE FMStart: 02-22-2025 End: 40-94-5997Wvhlkt outpatient new 60 minutesMarleen Jones NP Work [...] for deficiency anemia; BMI 33.0-33.9,adultStart: 02-22-2025 End: 79-42-7130Mpwoqml encounter statusMarleen Jones NP Work Phone: noms HealthcareStart: 02-22-2025 End: 49-32-6152ocsdbzigfzKXAQKZHZ J HARTNot AvailableStart: 02-19-2025 End: 14-13-4111Liseze [facility] Work Phone: n[facility] DERMStart: 02-19-2025 End: 52-37-6101Ieojzn [facility] Work Phone: noms [facility] DERMStart: 02-19-2025 End: 91-54-1979wbxmrzogsgXAVVK NORTHEIMNot AvailableStart: 02-19-2025 End: 41-03-1490Nxrgem outpatient visit [facility] SkillSlateCar[facility] Work Phone: noms [facility] DERMComment on above:Melanocytic nevus of trunk (Primary Dx); Lentigines; Actinic keratosis; Seborrheic keratosis; Personal history of squamous cell carcinoma of skin; Dermatofibroma of left upper extremity; Dermatofibroma of right lower extremityStart: 01-14-2025 End: 60-22-4604pcaqfsxvfpSlqvgkl R NILLFacility:FTMCStart: 01-14-2025 End: 61-19-0328Qondyix encounter procedureMichael R NILL [facility] Start: 12-24-2024 End: 31-87-5625bxbytevpmzGyiphdf HoyFacility: kStart: 11-29-2024 ambulatoryFacility: Bhavanitart: 87-44-2366aewhkupzsmZsuddcew: Thai Start: 09-11-2024 End: 51-10-5096Kzyqwqc encounter procedureAriel Meeks MD Work Phone: [facility] Work Phone: Start: 09-11-2024 End: 74-96-5925jvpjkupssaXjtqcrv M Hoy MD Work Phone: [facility] Work Phone: Start: 09-08-2024 End: 20-86-1481ywiyknzxma6791152375 -Kiran GeorgeFacility: rt: 09-08-2024 End: 53-11-2752Qkv-SiteAriel Meeks [phone]-YmraeMercy Health Perrysburg Hospital [facility] Care Start: 09-01-2024 End: 56-71-1204Kneejgz encounter procedureAriel Meeks MD Work Phone: [facility]ly Work Phone: Start: 07-18-2024 End: 00-67-1155kjhzyqxnuiMAXLN FAZIONot AvailableStart: 07-18-2024 End: 28-08-4841Iutnxvh encounter procedureCorey Clau DO Work Phone: [facility] Work Phone: Start: 07-18-2024 End: 63-05-0408Qxcgrcrb preventive med est patient 40-64yrsCorey Clau DO Work Phone: [facility] BCP OBComment on above:Well woman exam with routine gynecological exam; Breast cancer screening by mammogramStart: 07-18-2024 End: 44-32-2382Mivxhq flowsheetCorey Clau DO Work Phone: [facility] BCP OBStart: 07-18-2024 End: 89-78-4034Ujwkdv flowsheetCorey Clau DO Work Phone: [facility] BCP OBStart: 07-18-2024 End: 10-30-7126Cmjnpgolx Result EncounterCorey Clau DO Work Phone: noms External Department UnsolicitedStart: 06-25-2024 ambulatoryFacility:CC [place]walkStart: 06-25-2024 End: 92-55-8359bwifzvsdmdOYI Aurora QuintanillaFacility:CC NorwalkStart: 06-25-2024 End: 60-31-3975Hqmtesm encounter procedureAurora Quintanilla [phone]-UmzukMercy Health [facility]sburg Hospital [facility] Start: 05-18-2023 End: 80-48-0776Afiniie encounter procedurePatrick Elder [phone]-CsnrcMercy Health Perrysburg Hospital [facility] Care Start: 36-54-4218voifgkudolNF ARIEL HOYFacility:H1 Start: 09-11-2021 End: 84-85-0669WuibkfgeuYPZVZMJ D BRUNER [facility] Start: 07-08-2021 End: 67-18-1960iasraionbqDO ARIEL HOYFacility:G3Hkaxo: 05-05-2021 End: 12-23-5846qdlrlyrhuyGQ ARIEL HOYFacility:H1 Procedures DateProcedureProcedure DetailPerforming ClinicianStart: 24-84-9908Hxcyi dip stick/tablet rgnt non-auto w/o micrscpDanielle Pennie Jones NP Work Phone: start: 09-17-7056TJZVKAPAKOF SKIN LESIONRylee Arun JACOBS Work Phone: Start: 66-81-5058KiyfusvjjjiHxmyl [place] PA Work Phone: Start: 57-11-9847EwgogkuulcoUxwapoa NILL Start: 15-94-3592Ysficsujf mammography of bilateral breastMarthaoushandraas Sofi ALICEA Work Phone: Start: 12-07-3707GRD,APTIMA HPV,AGE GDLNCorey Clau DO Work Phone: Start: 24-58-1439Wjfuokhuubv observation [Identifier] in Cervix by Cyto stainCorey Clau DO Work Phone: Start: 41-73-0515Nclpqkuuowu observation [Identifier] in Cervix by Cyto stainCorey Clau DO Work Phone: Start: 09-62-6063Vmph cerv/vag auto thin layer prep mnl screenCorey Clau DO Work Phone: Start: 38-55-0485Wtaoo hysterectomy via vaginal approachMichael NILL Start: 13-49-3362TrayaqdfbvoEatvn Clau DO Work Phone: H/O: surgeryHistory of squamous cell carcinoma excisionDaenrrique Jones NP Work Phone: repair of meniscusMichael NILL Plan of Treatment DateCare ActivityDetailAuthorStart: 18-86-1280Pjdufexmg for malignant neoplasm of colonNOMS HealthcareStart: 01-59-2492Kelzxsofi for malignant neoplasm of cervixNOMS HealthcareStart: 37-43-7342Rnxtdzqdc for malignant neoplasm of cervix Pap SmearNOMS HealthcareStart: 02-19-2026 End: 23-76-8270Aplfatc encounter procedureNOMS SWS DERMStart: 07-24-2025 End: 59-56-2145Dzfsfnq encounter procedureNOMS BCP OBStart: 05-29-2025 End: 89-29-4161Fulotyg encounter procedureNOMS [facility] MedicineComment on above:ArrivedStart: 54-50-7590Ykloozwyn vaccinationNONJ HealthcareStart: 04-29-2025 End: 98-80-4179Zzkifei encounter procedureNOMS NE FMComment on above:Arrived Start: 03-26-2025 End: 49-34-0485Yqlorri encounter procedureNOMS NE FMComment on above:Arrived Start: 02-22-2025 End: 94-35-5836Lldytjm encounter procedureNOMS NE FMComment on above:Arrived Start: 01-30-2025 End: 68-05-4011Vwfqalr encounter nyamflhkt00/28/2025 3:00 PM EDT Office Visit [facility] [address] [place] [address] Debbie Munson, [place] [address] [place] [address] NOMRaul PANTOJA DERMStart: 07-18-2024 End: 59-69-8652DN Breast - bilateral ScreeningBilateral screening mammogram Imaging Routine Breast cancer screening by mammogram Expected: 07/18/2024 (Approximate), Expires: 09/17/2025[facility] Work Phone: comment on above:Expected: 07/18/2024 (Approximate), Expires: 09/17/2025Start: 70-23-6474Xmliwxgfq vaccinationInfluenza Vaccine (#1) [facility] HealthcareStart: 59-66-7351Lthgydhni for malignant neoplasm of breast MammogramNONJ HealthcareStart: 35-50-1547Bmzokvybi for malignant neoplasm of colonNONJ HealthcareCBC W Auto Differential panel - BloodCBC and differential Lab Routine Screening for lipid disorders Screening for heart disease Screening for deficiency anemia Ordered: 02/22/2025[facility] HealthcareComment on above: Ordered: 02/22/2025omprehensive metabolic 2000 panel - Serum or Plasma Comprehensive metabolic panel Lab Routine Screening for lipid disorders Screening for heart diseaseOrdered: 02/22/2025[facility] Healthcare Work Phone: comment on above:Ordered: 02/22/2025THIN PREP TIS PAP AND HR HPV DNATHIN PREP TIS PAP AND HR HPV DNA Pathology and Cytology Routine Well woman exam with routine gynecological exam Ordered: 07/18/2024NONJ HealthcareComment on above:Ordered: 07/18/2024TSH W/REFLEX TO FT4TSH W/REFLEX TO FT4 Lab Routine Screening for thyroid disorder Ordered: 02/22/2025[facility] HealthcareComment on above:Ordered: 02/22/2025 Immunizations Immunization DateImmunizationNotesCare BkzwnkigJhjqoaxt29-92-6283DRAI-GxQ-4 (COVID-19) mRNA-1273 vaccineKathenna Quintanilla [phone]-KyxiaMercy Health Perrysburg Hospital Convenient CareComment on above:Result Comment: 2024-06-25: VBA7189-25-7363KRNIU-13, mRNA, LNP-S, PF, 100 mcg or 50 mcg dose; Translations: [Moderna COVID-19 Vaccine]JOHN DRAKE [facility] CenterComment on above: Early/Late Reason: Early/Late Reason: Nursing Ogwjrvze24-76-9379XIRFT-46, mRNA, LNP-S, PF, 100 mcg or 50 mcg dose; Translations: [Moderna COVID-19 Vaccine]JHON DARKE [facility] Payers DatePayer CategoryPayerPolicy [id number] [id number] Health Insurance 1..[id number] 2..1.986777.3.57[id number] 2..1.046630.3.57[id number] 2.0.1.743631.3.57[id number] 2.0.1.071466.3.57[id number] 2.16.840.1.770592.3.57[id number] 2.16.840.1.953943.3.57[id number] 2.16.840.1.256092.3.57[id number] 2.16.840.1.951681.3.579.[id number] 2.16.840.1.723680.3.57[id number] 2.16.840.1.294239.3.579.2.733387-95-0895Sgnpbxk86375071 2.0.1.168424.3.579.[id number] 2.16.840.1.972721.3.579.2.024751-15-3500Mstl-[id number] [id number] 2.16.840.1.605282.3.579.2.531 Social History DateTypeDetailFacilityTobacco smoking statusNever smokerMercy Health St. Charles Hospitaltart: 02-03-2024 End: 60-98-9570Rgl Assigned At BirthFemalMercy Health West Hospitaltart: 05-18-2023 End: 84-29-3149Rrfhynl smoking statusNever smoked tobacco (finding)[facility] CareStart: 45-49-4094Dfsgvcv smoking statusNever [facility] CareStart: 80-61-6770Qbmmcyj use and exposureSmokeless tobacco non-userNOMS HealthcareStart: 07-18-2024 End: 54-40-8802Xbuprdfch beverage intakeEx-drinker (finding)[facility] Start: 02-03-2024 End: 59-69-8792Iadilfq of Social functionNONJ HealthcareStart: 96-96-4634Vmwuqgb Commentcaffeine 1-2 cups/day; sodaNOMS HealthcareStart: 70-46-9756Crn assigned at birthFemalFillmore Community Medical Center HealthcareStart: 66-59-3909Oholzp identityIdentifies as female gender (finding)[facility] HealthcareStart: 09-94-9652Xulovn orientationChoose not to discloseNONJ HealthcareStart: 12-17-2009 End: 63-82-5307SpiKgytno (finding)[facility] Hospitalexual OrientationSouthview Medical Center How often do you need to have [...] before (I/we) got money to buy more.Never trueNONJ Healthcare Functional Status DqqfQzbxcfxzjaJvbsxgTztvnbnl04-17-5523Xcquuuo Health Questionnaire 2 item (PHQ- 2) [Reported][facility] HospitalAcnbtmwnov56-17-9148Qzapmypixp StatusN/[facility]10-21-2024Functional StatusN/[facility] 38-89-5547Uaevffrdaz StatusN/[facility] Clinical Notes 05-18-2023 to 05-29-2025 Note Date & ZrklPahcUkkrgmnm38-34-9345 History of Present illness Narrative* Marleen Jones, REAL ESTATE PARALEGAL - 05/29/2025 3:00 PM EDT Images from the original note were not included. Vijaya Tolbert is a 49 y.o. female presents with chief complaint of Med Refill, Immunizations (Declines at this time. 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 Social History: Occupation: Eighth grade environmental science professor MEDICATIONS: Current Outpatient Medications Medication Instructions Tirzepatide-Weight [...] Influenza Vaccine (1) 05/06/2025 documented in this encounterColumbia Regional HospitalAtmhpjzrlt87-96-0242 History of Present illness Narrative* Marleen Jones [...] day. Living Condition: She lives near a [facility]. MEDICATIONS: Current Outpatient Medications Medication Instructions [...] to reach a weight of 180 pounds. -[facility]. 2. Anxiety. - Anxiety appears to [...] Influenza Vaccine (1) 05/06/2025 documented in this encounterColumbia Regional HospitalWublmtpvjr57-19-0115 History of Present illness Narrative* Marleen Jones NP - 02/22/2025 9:00 AM EDT Images from the original note were not included. Vijaya Tolbert is a 49 y.o. female presents with chief complaint of Breast Cancer Screening (Completed 2023 [facility]) HPI: History of Present Illness The [...] and is under the care of a senior underwriter. She also experiences fatigue. She has a [...] by the physician and/or other QHP includes stlz-dm-imuy and pan-nylu-ws-face time. Specifically this includes prep time for [...] Diagnostic workup: lower endoscopy documented in this encounterColumbia Regional HospitalDbvbltehhz83-35-6535 History of Present illness Narrative* REYNALDO Dye [...] limited to risks of scarring, darker or graining press operator pigmentary changes, recurrence, incomplete removal and infection. [...] Next Visit: 1 year documented in this encounterColumbia Regional HospitalTacupiovpc12-62-6354 NoteColonoscopy Procedure Report Patient: LYLY TOLBERT Age: [...] place. Impression and Plan Diagnosis: Redundant colon (ILR39-TM Q43.8, Discharge, Medical). Course: Progressing as expected. Recommendations: Repeat colonoscopy:: In 10 years. Follow-up:: if problems/questions. Diet:: Regular diet, High fiber. Medication resumption:: Continue current medications. Return to activities:: After 24 hours. Education and Follow-up: Counseled: Family.[place] [facility] HospitalComment on above:Other Comment: Missing Attachment - attachment storage system not supported [id number] Can be viewed in source systemMissing Attachment - attachment storage system not supported [id number] Can be viewed insource systemMissing Attachment - attachment storage system not supported [id number] Can be viewed in s [facility] centerce systemMissing Attachment - attachment storage system not supported [id number] Can be viewed in source -[id number] Evaluation + Plan noteExtracted from: Title:ANES Post-operative Note---GeneralAuthor:Kumar Marte MD.Date:01/14/25 Plan Transfer/Discharge: Transfer/Discharge Discharge when meets criteria ( To home ). Extracted from:Title:ANES Pre-operative Note uthor:Kumar Marte MD.Date: 01/14/25 Plan [place] [employer] Anesthesiologists (ASA) physical status classification: Class II. Anesthetic Preoperative Plan: Anesthesia General.[facility] [id number] Hospital Discharge instructions Patient Education 01/14/2025 09:16:04 [...] Up Care 12/24/2024 15:58:40 With:Clifton TURNER Address: [address] [place] [address], [facility] [address] [phone] (1) When: only if needed [facility] 05-12-2025 NoteProgress Note-Physician Patient: LYLY TOLBERT Age: 49 years Sex: Female : 1975 Associated Diagnoses: None Author: Kumar Marte MD Postoperative Information Postoperative disposition: Postoperative disposition: To PACU. Optimetrix number: Optimetrix number [id number]. Anesthetic utilized: General, No Regional. Health Status [...] Discharge when meets criteria ( To home ).[facility] HospitalComment on above:Result Comment: Electronically Signed By: Kumar Marte MD\.br\Date and Time Signed: 01/14/25 11:02 EDT 01-14-2025 NoteHistory and Physical Patient: LYLY TOLBERT Age: 49 years Sex: Female : 1975 Associated Diagnoses: None Author: Clifton TURNER MD Subjective no changes to & [facility] [place]onComment on above:Result Comment: Electronically Signed By: Clifton TURNER MD.br\Date and Time Signed: 01/14/25 09:37 [id number] NoteProgress Note-Physician Patient: LYLY TOLBERT Age: 49 [...] Problems Abdominal pain, RLQ / SNOMED CT 154139239 / Confirmed BMI 34.0-34.9,adult / SNOMED CT 268729446 / Confirmed Cardiac murmur / SNOMED CT 676447975 / Confirmed Change in bowel habits / SNOMED CT 202724971 / Confirmed Depression / SNOMED CT 30640284 / Confirmed Gastroesophageal reflux disease / SNOMED CT 478702916 / Confirmed Obesity / SNOMED CT 0283773932 / Confirmed Canceled: Iliotibial band syndrome, right leg / SNOMED CT 9388088896, Active Problems (7) Abdominal pain, RLQ BMI 34.0-34.9,adult Cardiac murmur Change in bowel habits Depression Gastroesophageal reflux disease Obesity Histories Past Medical History: No active or resolved past medical history items have been selected or recorded. Family History: Diabetes mellitus type 2 Mother Primary malignant neoplasm of prostate Father Procedure history: Total hysterectomy via vaginal approach ([id number]) on 12/17/2021 at 46 Years. Meniscal repair (569409917). Social History Social & Psychosocial Habits Alcohol [...] review: No qualifying data available . Plan [place] Society of Anesthesiologists (ASA) physical status classification: Class II. Anesthetic Preoperative Plan: Anesthesia General.[facility] Comment on above:Result Comment: Electronically Signed By: Estuardo ALICEA, Kumar Nieves\.br\Date and Time Signed: 01/14/25 09:28 [id number] NotePatient Education - Text Colonoscopy Care After [...] is severe or gets worse throughout the day.[facility]04-21-2025 NoteGeneral Surgery Office/Clinic Note Chief Complaint consultation [...] mRNA-1273 vaccine 09/06 (more content not included)... [facility] HospitalComment on above:Result Comment: Electronically Signed By: XENA ALICEA, Clifton Cuellar\Date and Time Signed: 12/24/24 15:46 EDT 09-01-2024 Evaluation note* Diagnosis Onset Date Resolution Status Admit Date RSV (respiratory syncytial virus infecti on) acuteDecember 2023 10:03am [facility] Work Phone: 1(874) 219-594511-13-2024 History of Present illness Narrative* Melony Blanco, CONVEYOR WEIGHER OPERATOR - 07/18/2024 3:00 PM EST Reason for [...] nursing note reviewed. Exam conducted with a senior customer service representative present. Vitals: Estimated body mass index is [...] of: Clay Olguin DO documented in this encounterColumbia Regional HospitalVkmxddcgkj63-12-3782 Hospital Discharge instructions Patient Education 06/25/2024 09:54:39 [...] Centers for Disease Control and Prevention: cdc.gov [place] Heart Association: heart.org National Heart, Lung, and Blood [place]: nhlbi.nih.gov This information is not intended to replace advice given to you by your health care provider. Make sure you discuss any questions you have with your health care provider. Document Revised: 05/12/2023 Document Reviewed: 05/05/2023 [employer] Patient Education 2023 iCook.tw. 06/25/2024 09:54:37 BMI for Adults BMI for [...] Centers for Disease Control and Prevention: cdc.gov [place] Heart Association: heart.org National Heart, Lung, and Blood [place]: nhlbi.nih.gov This information is not intended to replace advice given to you by your health care provider. Make sure you discuss any questions you have with your health care provider. Document Revised: 05/12/2023 Document Reviewed: 05/05/2023 [employer] Patient Education 2023 [employer]Cook.tw. 06/25/2024 09:43:57 Iliotibial Band Syndrome Rehab Iliotibial [...] by your health care provider. Stretching and pyuyn-xk-ywyuxa exercises These exercises warm up your muscles [...] provider. Document Revised: 10/29/2020 Document Reviewed: 10/29/2020 [employer] Patient Education 2023 iCook.tw. 06/25/2024 09:43:55 Iliotibial Band Syndrome Iliotibial Band [...] your health care provider. General instructions Take azoh-qza-cbccoln and prescription medicines only as told by [...] activity. Consider getting help from a head men's tennis coach or manager process excellence to come up with a safe running [...] provider. Document Revised: 12/22/2020 Document Reviewed: 12/22/2020 [employer] Patient Education 2023 [employer]Cook.tw. Follow Up Care 06/25/2024 08:37:10 With:Ariel Meeks MD Address: [address] [place] [address]- When:2 to 4 weeks only if needed [facility] 10-21-2024 NotePatient Education BMI [...] for Disease Control and Prevention: cdc.gov ? [place] Heart Association: heart.org ? National Heart, Lung, and Blood [place]: nhlbi.nih.gov This information is not intended to replace advice given to you by your health care provider. Make sure you discuss any questions you have with your health care provider. Document Revised: 05/12/2023 Document Reviewed: 05/05/2023 Elsevier Patient Education ? 2023 [employer] Nutrition BMI for Adults Body mass [...] of lb x 703) (more content not included)...[facility]09-13-2023 Hospital Discharge instructions Patient Education 05/18/2023 21:35:55 [...] numbers. This can be done either in [place] ([place] or metric measurements. Note that charts and online BMI calculators are available to help you find your BMI quickly and easily without having to do these calculations yourself. To calculate your BMI in [place] ([place] measurements: 1.Measure your weight in pounds [...] Centers for Disease Control and Prevention: www.cdc.gov [place] Heart Association: www.heart.org National Heart, Lung, and Blood [place]: www.nhlbi.nih.gov Summary Body mass index (BMI) is a number that is calculated from a person's weight and height. BMI may help estimate how much of a person's weight is composed of fat. BMI can help identify thosewho may be at higher risk for certain medical problems. BMI can be measured using [place] measurements or metric measurements. BMI charts are used to identify whether you are underweight, normal weight, overweight, or obese. This information is not intended to replace advice given to you by your health care provider. Make sure you discuss any questions you have with your health care provider. Document Revised: 05/14/2020 Document Reviewed: 03/21/2020 [employer] Patient Education 2022 iCook.tw. 05/18/2023 21:35:53 Excision of Skin Lesions Excision [...] including vitamins, herbs, eye drops, creams, and ckty-nwy-qitctmx medicines. Any problems you or family members [...] provider tells you to take them. Taking akeo-shm-gvonzcu medicines, vitamins, herbs, and supplements. General instructions [...] hole punch is used to cut a inaja shape out of theskin. ?The outer edges [...] provider. Document Revised: 03/23/2022 Document Reviewed: 03/23/2022 [employer] Patient Education 2022 iCook.tw. Follow Up Care 05/18/2023 15:03:17 With:Ariel Meeks MD Address: [address] [place] [address]- When: Unknown [facility] Evaluation + Plan note No data available for this section [facility] Diagnosis Well woman exam with routine [...] instructions No data available for this section [facility] No data available for this section [facility] Summary Purpose Family History [...] and content) DATE CREATED AUTHOR 12/25/2021 [facility] DATE CREATED AUTHOR AUTHOR'S ORGANIZ ATION 09/17/2024 [facility] DATE CREATED AUTHOR AUTHOR'S ORGANIZ ATION 01/16/2025 [facility] DATE CREATED AUTHOR AUTHOR'S ORGANIZ ATION 05/31/2025 [facility] EPIC Patient Care team informatio [...] Date Chelle Walker MD [address] [place] [address] [facility] - [facility]02/22/25Team MemberRelationshipSpecialtyStart DateEnd Date Chelle Walker MD [address] [place], [place] [address] PCP - [facility]02/22/25Te MemberRelationshipSpecialtyStart Date[facility] Chelle Walker MD [address] [place], [place] [address] PCP - [facility]02/22/25Te MemberRelationshipSpecialtyStart Date[facility] Chelle Walker MD [address] [place] [address] PCP - [facility]02/22/25Te MemberRelationshipSpecialtyStart DateEnd [facility] Chelle aWlker MD [address] [place] [address] PCP - [facility]02/22/25 Reason for Visit (unrecogniz ed section and content) ReasonCommentsWell Women VisitReasonCommentsSkin CheckReasonCommentsBreast Cancer ScreeningCompleted 2023 [facility]ReasonCommentsBreast Cancer Screening ScheduledReasonCommentsMed RefillImmunizationsDeclines at this time.[facility] Cancer [facility]eningScheduled at [facility] 06/2025ReasonCommentsMed Change Request Goals (unrecognized section and [...] BE BASED ON THE PRIMARY CLINICAL RECORDS. [facility] [employer] [facility]. provides no warranty or guarantee of the accuracy or completeness of information in this document.
--- NOTE | 2025-07-27 16:40 | ED.EYEPROB1 ---
HPI - Eye Problem General Chief complaint: Eye Problems Stated complaint: RT EYE INJURY Time Seen by Provider: 07/27/25 16:38 Source: patient Mode of arrival: walk-in Limitations: no limitations History of Present Illness HPI Narrative: Patient is a very pleasant 49-year-old female presents to the emergency department for evaluation of an injury to the right eye. She states she was hammering while working on a shed and a nail ricocheted back and hit her in the eye. She has not had any fluid leakage, bleeding or loss of vision. No medications taken prior to arrival. Unknown last tetanus. She does not wear contact lenses. She had no other associated injuries. Related Data Home Medications ?Medication ?Instructions ?Recorded ?Confirmed tirzepatide 7.5 mg/0.5 mL 7.5 mg subcut QWEEK 07/27/25 07/27/25 subcutaneous pen injector Allergies Allergy/AdvReac Type Severity Reaction Status Date / Time No Known Drug Allergies Allergy Verified 07/27/25 16:30 Review of Systems ROS Constitutional Denies: fever or chills Eyes Reports: eye discomfort Cardiovascular Denies: chest pain Respiratory Denies: shortness of breath or cough Gastrointestinal Denies: nausea or vomiting Integumentary/Breast Denies: rash Neurological Denies: numbness in extremities or weakness in extremities Hematologic/Lymphatic Denies: easy bruising or easy bleeding PFSH PFSH Social History Little interest or pleasure in doing things: not at all Feeling down, depressed, or hopeless: not at all Exam Narrative Exam Narrative: General: No acute distress HEENT: Atraumatic, normocephalic Eye: Conjunctival injection noted at the medial aspect of the eye on the right. Guzman lamp exam with negative Binu sign, no vitreous leakage, no bleeding. No evidence of globe rupture on exam. Dye uptake at the medial aspect of the conjunctiva approximately 0.5 cm x 2 mm. Normal extraocular muscle motion. No swelling of the eyelids. Respiratory: No respiratory distress Cardio: Regular rate and rhythm Skin: Warm and dry Neuro: No focal neurodeficits Psych: Normal mood and affect Constitutional Vital Signs, click to edit/add: Last Vital Signs Temp 98.7 F 07/27/25 16:25 Pulse 80 11/22/25 16:25 Resp 18 07/27/25 16:25 BP 118/80 07/27/25 16:25 Pulse Ox 100 07/27/25 16:25 Course Vital Signs Vital signs: Vital Signs Temperature 98.7 F 07/27/25 16:25 Pulse Rate 80 07/27/25 16:25 Respiratory Rate 18 07/27/25 16:25 Blood Pressure 118/80 07/27/25 16:25 Pulse Oximetry 100 07/27/25 16:25 Temperature 98.7 F 07/27/25 16:25 Pulse Rate 80 07/27/25 16:25 Respiratory Rate 18 07/27/25 16:25 Blood Pressure 118/80 07/27/25 16:25 Pulse Oximetry 100 07/27/25 16:25 MDM - Eye Problem MDM Narrative Medical decision making narrative: Exam is consistent with a corneal abrasion to the right medial eye without evidence of globe rupture or retained foreign body. There is no rust ring noted. Patient given tobramycin eyedrops, tetanus updated in the ER and she is discharged to follow-up with optometry. Return to the ER if symptoms change or worsen. Medical Records Attestation: I reviewed the patient's medical records. Discharge Plan Discharge Chief Complaint: Eye Problems Clinical Impression: Corneal abrasion Patient Disposition: Home, Self-Care Time of Disposition Decision: 16:54 Condition: Good Prescriptions / Home Meds: No Action tirzepatide 7.5 mg/0.5 mL pen injector 7.5 mg subcut QWEEK Print Language: Macanese Instructions: Corneal Abrasion (ED) Additional Instructions: Please use 2 drops of tobramycin in the right eye, 4 times a day for 5 days Referrals: Dean Houston MD [Physician, Opthalmology] - 1 week JUN MACIAS [Physician, Optometry] - 1 week Physician,Non-Staff, [Primary Care Provider] - 1 week
--- OUTSIDE RECORDS SUMMARY | 2025-07-27 16:40 | XMS_ITS | Encounter Summary ---
Author Organization [facility] Address [address] [place] [address] Care Team Providers Care Echo Vasc Tech Name Role Phone Chelle Walker MD Primary Care Provider [phone] Encounter Details DateTypeDepartmentCare Team (Latest Contact Info)Cpviuyndycz26/19/2025amboo flowsheet [facility] [address] [address] Clay Olguin DO [address] Elissa Andre, [facility] Social History Tobacco UseTypesPacks/DayYears UsedDateSmoking Tobacco: NeverSmokeless Tobacco: NeverAlcohol UseStandard Drinks/WeekCommentsNot Currently0 (1 standard drink = 0.6 oz pure alcohol)caffeine 1-2 cups/day; [id number] Health LiteracyAnswerDate RecordedHow often do you need [...] times a week02/21/2025How often do you attend scientology or jehovah's witness services?Patient wnrpmhgi20/19/2025Do you belong to any clubs or organizations such as scientology groups, unions, fraternal or athletic groups, or school groups?No02/21/2025How often do you attend meetings of the clubs or organizations you belong to?Never02/21/2025re you , , , , never , or living with a partner?Living with bdenhqb0102/21/2025UDIT-CAnswerDate RecordedQ1: How often do you have a drink containing alcohol?Monthly or less02/21/2025Q2: How many drinks containing alcohol do you have on a typical day when you are drinking?3 or 4 02/21/2025Q3: How often do you have six or more drinks on one occasion?Less than ponphvt6202/21/2025Overall Financial Resource Strain (CARDIA)AnswerDate Recorded How hard is it for you to pay for the very basics like food, housing, medical care, and heating?Not hard at all02/21/2025PHQ-2AnswerDate RecordedPatient Health Questionnaire-2 Jiaqx617Finutah state hospital [facility] of Occupational Health - Occupational Stress QuestionnaireAnswerDate RecordedDo you feel stress - tense, restless, nervous, or anxious, or unable to sleep at night because your mind is troubled all the time - these days?To some rnqzxu0102/21/2025Exercise Vital SignAnswerDate RecordedOn average, how many days [...] were you homeless or living in a jail (including now)?No02/21/2025CommentsNoSex and Gender InformationValueDate RecordedSex Assigned at FagcySfabto54/18/2023 10:08 AM EDT Legal MmwAjmspp39/15/2023 7:26 PM EDTGender LqlglgjaRbkuyu92/18/2023 10:08 AM EDTSexual OrientationChoose not to mhkskjko17/18/2023 10:08 AM EDTdocumented as of this encounter Plan of Treatment DateTypeDepartmentCare Team (Latest Contact Info)Xlbvksjsrfi05/25/2025 3:40 PM ESTOffice Visit [facility] [address] [place] [address] Candi Kebede NP [address] [place] [address] 02/19/2026 10:00 AM EDTOffice Visit [facility] [place] [facility] [address] [place] [address] Milly Dias PA [address] [place] [address] documented as of this encounter Visit Diagnoses Not on filedocumented in this encounter Care Teams Team MemberRelationshipSpecialtyStart DateEnd Date Chelle Walker MD [address] [place] [address] PCP - GeneralFamily Medicine02/22/25documented as of this encounter
--- OUTSIDE RECORDS SUMMARY | 2025-07-27 16:40 | XMS_ITS | Clinical Summary ---
Author Organization [facility] Address [address] [place] [address] Care Team Providers Care Mud Analysis Well Logging Operator Name Role Phone Chelle Walker MD Primary Care Provider [phone] Allergies No known active allergies Medications MedicationSigDispense QuantityRefillsLast FilledStart DateEnd DateStatus Tirzepatide-Weight Management 5 MG/0.5ML solution auto-injector Inject 5 mg under the skin 1 (one) time per weekActive hydrOXYzine HCl (Atarax) 25 MG tablet Indications:Anxiety,Sweating profuselyTake 1 tablet (25 mg) by mouth as needed at bedtime for anxiety 90 tablet ctive Active Problems No known active problems Encounters DateTypeDepartmentCare JqseDjnzebovssq50/19/2025 3:00 PM ESTOffice Visit [facility] [address] [place] [address] Clay Olguin DO Well woman exam with routine gynecological exam; Breast cancer screening by lvjykivqi43/19/2025amboo flowsheet [facility] [address] [place] [address] Clay Olguin DO 06/22/2025Refill [place] [address] [place] [address] Candi Kebede, PEPPER Anxiety; Sweating pexhqxgzg02/24/2025 3:00 PM EDTOffice Visit [place] [address] [place] [address] Candi Kebede, PEPPER Sweating profusely (Primary Dx); Anxiety; BMI 30.0-30.9,adult; Panic rqkesw7905/29/2025[place] [address] [place] [address] Candi Kebede NP 05/29/20257623Mztrlr99/17/7584Wlclze19/25/2025 3:00 PM EDTOffice Visit [place] [address] [place] [address] Candi Kebede NP SI (sacroiliac) joint dysfunction (Primary Dx); BMI 31.0-31.9,adult; Anxiety; Burping; Diarrhea, unspecified type04/29/2025athol hospital flowsheet [place] [address] [place] [address] Candi Kebede NP 04/29/20256509Zppjmg59/22/2025Travelfrom Last 3 Months Family History Medical HistoryRelationNameCommentsBreast cancerMaternal GrandmotherDiabetes MotherSkin cancerMotherMelanomaNeg HxRelationNameStatusCommentsMaternal GrandmotherDeceasedMother Social History Tobacco UseTypesPacks/DayYears UsedDateSmoking Tobacco: NeverSmokeless Tobacco: Never Tobacco Cessation:Counseling Given: Not Answered Alcohol UseStandard Drinks/WeekCommentsNot Currently0 (1 standard drink = 0.6 oz pure alcohol)caffeine 1-2 cups/day; zpyuE5935 Health LiteracyAnswerDate Recorded How often do you [...] times a week02/21/2025How often do you attend restorationism or bahai services?Patient /19/2025Do you belong to any clubs or organizations such as restorationism groups, unions, [employer]Fielding [employer] or athletic groups, or school groups?No02/21/2025How often do you attend meetings of the clubs or organizations you belong to?Never02/21/2025re you , , , , never , or living with a partner?Living with cwfeerq9102/21/2025 AUDIT-CAnswerDate RecordedQ1: How often do you have a drink containing alcohol? Monthly or less02/21/2025Q2: How many drinks containing alcohol do you have on a typical day when you are drinking?3 or Q3: How often do you have six or more drinks on one occasion?Less than yrszssf6802/21/2025Overall Financial Resource Strain (CARDIA)AnswerDate RecordedHow hard is it for you to pay for the very basics like food, housing, medical care, and heating?Not hard at all 02/21/2025PHQ-2AnswerDate RecordedPatient Health Questionnaire-2 Score0 02/22/2025Finintermount[facility] healthcare [place] of Occupational Health - Occupational Stress QuestionnaireAnswerDate RecordedDo you feel stress - tense, restless, nervous, or anxious, or unable to sleep at night because yourmind is troubled all the time - these days?To some nwxkcz5602/21/2025Exercise Vital SignAnswerDate Recorded On average, how many [...] were you homeless or living in a fci (including now)?No02/21/2025CommentsNoSex and Gender Information ValueDate RecordedSex Assigned at YlqiwPwlcwa62/18/2023 10:08 AM EDTLegal Sex Efzrdh2711/17/2022 7:26 PM EDTGender MiwhqbweDbacvs48/18/2023 10:08 AM EDTSexual OrientationChoose not to /18/2023 10:08 AM EDT Last Filed Vital Signs Vital SignReadingTime TakenCommentsBlood Waghaxji009/7007/24/2025 3:16 PM EST Rqowm152205/29/2025 3:03 PM ENBJnzteyjbzkh81.7 ??C (98 ??F)05/29/2025 3:03 PM EDT Respiratory Rate--Oxygen Rgcnhkxmcy36%05/29/2025 3:03 PM EDTInhaled Oxygen Concentration--Bgxqgd70.7 kg (186 lb 12.8 oz)07/24/2025 3:16 PM REZTgpbcv159.6 cm (5' 6 )05/29/2025 3:03 PM EDTBody Mass Index30.15005/29/2025 3:03 PM EDT Plan of Treatment DateTypeDepartmentCare Team (Latest Contact Info)Vvwuokqmtww44/25/2025 3:40 PM ESTOffice Visit [facility] [place] [facility] [address] [place] [address] Candi Kebede DIGITAL STRATEGY DIRECTOR [address] [place] [address] 02/19/2026 10:00 AM EDTOffice Visit [facility] [address] [place] [address] Milly Dias PA [address] [place] [address] Health MaintenanceDue DateLast DoneCommentsCT Uivefqdfxkuu47/08/1977FIT-DNA 1975FIT1975FOBT1975 5879Cxkebqrdvkdqm55/08/4973Nasrbdygy68/13/2022 05/18/2021, 05/15/2020, 04/24/2019, Additional history existsCOVID-19 Vaccine ( season), 10/29/2020, 10/01/2020Influenza Vaccine (#1)9100Dqfodtwokhf585Colorectal Cancer Screening 01/14/2035HPV/FqgtctSzbbnbjsoqph99/18/2021, 04/18/2020, 04/04/2019Cervical Cancer ScreeningDiscontinuedPap BrcokEzwsypaykvrd04/13/2024, 07/11/2023 Pneumococcal Vaccine: Pediatrics (0 to 5 Years) and At-Risk Patients (6 to 64 Years)Aged OutNo longer eligible based on patient's age to complete this topic Procedures Procedure NamePriorityDate/TimeAssociated DiagnosisCommentsPAP SMEARRoutine 07/18/2024 12:00 AM ESTBI MAMMOGRAM SCREENING VTFCLWTUMGahrprh69/13/2021 Excessive and frequent menstruation with regular cycle Dysmenorrhea, unspecified Family history of malignant neoplasm of breast Leiomyoma of uterus, unspecified Chronic salpingitis Diffuse cystic mastopathy of right breast Encounter for gynecological examination (general) (routine) without abnormal findings Encounter for screening mammogram for malignant neoplasm of breast THINPREP TIS PAP REFLEX HPV MRNA E6/E7 (77573)Vketaqj8704/22/2021 from Last 3 Months or Most Recently Relevant to Health Maintenance Results * Pap Smear (07/18/2024 12:00 AM EST)Specimen (Source)Anatomical Location / LateralityCollection Method / VolumeCollection TimeReceived TimeSwabCervical swab / Unknown Narrative Authorizing ProviderResult TypeResult StatusFazio Nurse [facility] ObLAB CYTOLOGY ORDERABLESFinal ResultPerforming OrganizationAddressCity/State/ZIP CodePhone [...] Melony Justice M.D.05/18/2021 3:50 PM Dictation Location: DW01 Transcribed By: ? PWS ?05/18/21 1550 Dictated By: ?Melony S Vinh,MD ?05/18/21 1547 Signed By: <Electronically signed by MD Melony Justice in OV> ? 05/18/21 1550 Narrative 05/18/2021 12:00 AM EDT PERFORMED AT [facility] LOCATION:[address] ?[facility] ?[facility] [place] ?[address] ? [place] [address] ? Mammography Report ? Signed Patient: Gera,Lyly D ?MR#: [id number] : 1975 ?Acct:[id number] Age/Sex: 45 / F ?ADM Date: 05/18/21 [...] Note CONVERSION, GENERIC - 03/11/2023 PERFORMED AT [facility] LOCATION:[address] [place] [address] [place] [address] Mammography Report Signed Patient: Lyly Boss DMR#: [id number] : 1975Acct:[id number] Age/Sex: 45 / FADM Date: 05/18/21 Loc: DC Room:Type: REG CLI Attending Dr: Dean Buitrago MD [...] Melony Justice M.D.05/18/2021 3:50 PM Dictation Location: [facility] Transcribed By: [facility] 05/18/21 3501 Dictated By: Melony Justice MD 05/18/21 1547 Signed By: <Electronically signed by MD Melony Justice in OV> 05/18/21 1550 Authorizing ProviderResult TypeResult StatusDean DeniseMG BI PROCEDURES Final Result * THINPREP TIS PAP REFLEX HPV MRNA E6/E7 (20168) (04/22/2021)ComponentValueRef RangeTest MethodAnalysis TimePerformed AtPathologist SignatureCLINICAL INFORMATION:None [...] Reference Range: ZL, CT(ASCP) CT screening location: [facility], [address] [place] [address], [place] [address]. COMMENTSEE COMMENTNOMS LEGACY EXTERNAL LABComment: EXPLANATORY NOTE: [...] Health Maintenance Insurance Care Teams Team MemberRelationshipSpecialtyStart Date Chelle Walker MD [address] [place] [address] PCP - GeneralFamily Medicine02/22/25
--- OUTSIDE RECORDS SUMMARY | 2025-07-27 16:40 | XMS_ITS | Patient Health Record ---
Author Organization [facility] in [place] Address [address] [place] [address] Care Team Providers Care Material Movers Name Role Phone Rodriguezcharley Jose Primary Care Provider Allergies No Known Allergies Reason For Referral Reason recurrent diarrhea Diagnosis 1 Diarrhea (R19.7) Referral Organization [facility] Referring Provider First Name Jose Referring Provider [...] alcohol in the p ast year? No [id number]-N (Standard) Question Answer Notes Did you have a drink containing alcohol in the p ast year? No Akxtab9XeuosbuieqquthNvbsfuqt Problems Problem Type SNOMED Code ICD Code Onset Dates Problem Status W/U Status Risk Notes Problem Fatigue (49233505) Fatigue (R53.83) ActiveconfirmedProblemGastroesophageal reflux disease (208437853)GERD (gastroesophageal reflux disease) (K21.9)ActiveconfirmedProblemDepression (868407852)Depression (F32.9)ActiveconfirmedProblemOsteoarthritis of knee (313350095)Knee osteoarthritis (M17.9)ActiveconfirmedProblemWell adult (241797283)Well adult (Z00.00)ActiveconfirmedProblemCervical lymphadenopathy (334524858)Cervical lymphadenopathy (R59.0)ActiveconfirmedProblemDisplacement of lumbar intervertebral disc without myelopathy (85503374)Herniated lumbar disc without myelopathy (M51.26)ActiveconfirmedProblemHeart murmur (40949718)Cardiac murmur (R01.1)Activeconfirmed Vital Signs Temperature 98.4 degrees Fahrenheit 01/21/2025 Blood pressure cicjiwago31 mm Hg01/21/20253029Bguovm13 in01/21/2025lood pressure kokxxnac140 mm Hg01/21/20253991Jeacey194.8 lbs01/21/2025BMI34.02 kg/m201/21/2025 Encounters Encounter Location Date Provider Diagnosis [address] [address] 01/21/2025 Jose Hoy Acute non-recurrent sinusitis, unspecified location J01.90 and Nasal congestion R09.[address] [address] 11/27/2024 Jose Hoy Diarrhea R19.7 and G ERD (gastroesophageal reflux disease) K21.[address] [address] 09/11/2024 Jose Hoy Assessments Encounter Date Diagnosis (ICD Code) Assessment Notes Treatment Notes Treatment Clinical Notes Section Notes 11/27/2024 Diarrhea (ICD-10 - R19.7) 11/27/2024GERD (gastroesophageal reflux disease) (ICD-10 - K21.9)01/21/2025ute non-recurrent sinusitis, unspecified location (ICD-10 - J01.90)Rest and drink more liquids, especially water. You may use a humidifier or vaporizer to help keep the drainage moist. Wvrf-eis-kertciq Nasal Saline may help the stuffy and runny nose. Use Ibuprofen and or Tylenol as needed for fever, chills, body aches or pain. Children 5 years old should not be given lnfb-kku-kwflmyh cough and cold medications such as guaifenesin and dextromethorphan. If you're over age 5, you may try svrb-yrd-quvnxbx cold medications such as guaifenesin and dextromethorphan, [...] Date MMO [employer] [address] [place] [address] [id number] Maicol Bosself - patient is the insured Medical (General) History Medical History History ICD Code Cervical lymphadenopathy R59.0 Depression F32.9 Fatigue R53.83 Well adult Z00.00 Cardiac murmur R01.1 Herniated lumbar disc without myelopathy M51.26 Surgical History Surgery Date(Month/Year) Colonoscopy 01/14/25 hysterectomy 12/22/21
[2025-07-27] MEDS: DIPHTH,PERTUSS(ACELL),TET VAC 0.5 ML SYRINGE IM (17:16)
[2025-07-27] MEDS: TETRACAINE HCL 0.5% OP SOL 80 DROP/4 ML BOTTLE OP (17:16)
[2025-07-27] MEDS: FLUORESCEIN SODIUM 1 MG STRIP OP (17:16)
[2025-07-27] MEDS: TOBRAMYCIN 0.3% OP SOL 100 DROP/5 ML BOTTLE OP (17:17)
== END 2025-07-27 17:28 | disposition home or self-care (01) ==
PROVIDERS: Emergency Provider Emergency Medicine
DX: S05.01XA Injury of conjunctiva and corneal abrasion without foreign body, right eye, initial encounter (principal); W45.0XXA Nail entering through skin, initial encounter; Z23 Encounter for immunization
CPT/HCPCS: 90471; 90715; 99283